=== PATIENT | male | born 1950 | race Caucasian/White ===

== ENCOUNTER 2020-02-11 13:27 | Inpatient (IN) | payer MEDICARE ==
[~2020-02-11] VITALS: Ht 182.9 cm; Wt 109.7 kg
[2020-02-11] VITALS (7 sets, daily range): BP systolic 103–131; BP diastolic 57–89
[~2020-02-11 13:27] MED LIST: ASPI-586 PO; ATOR10TA66 PO; LISI-552 PO; MULT1CAP27 PO; OMG1KC PO
[2020-02-11] MEDS ORDERED: LACTATED RINGERS 1,000 ML IV ONE (14:07)
--- NOTE | 2020-02-11 14:13 | ED Fall/Injury ---
General Chief Complaint: Trauma-Non Activation Stated Complaint: FALL Nursing Triage Note: Pt arrived by EMS (Braulio Coto, CHIP APPLYING MACHINE TENDER and Sae Brown, EMT) with chief complaint of fall and hip/rib pain. EMS stated that patient might have fallen around [id number] and called children who came several hours after. Children arrived and stated that he was going to the emergency room to get checked ouot. EMT informed us that he had hip/rib pain. Pt only complains of injury to ribs, but denies any pain. Pt was alert and oriented for EMS. History of hypertension/high cholesterol. Pt was 96% on room air, bp was 127/68 for EMS. Patients was lifted from the stretcher to the ER bed. Pt's vital signs were taken. Pt was able to say name, , time of day (afternoon), where he was at ([facility]), year (2019), and President ([facility]). Pt said he was only confused on what day it was and stated tuesday (it is tuesday). Pt denies pain, but says he is anxious. Source: patient, EMS Exam Limitations: no limitations History of Present Illness Date Seen by Provider: Feb 11, 2020 Time Seen by Provider: 13:54 Initial Comments Patient presents ER by EMS from his home where he lives alone and with chief complaint that around 9:00 last night he got up to go the bathroom and got his foot tripped up in the shower curtain as he was walking back and fell to the floor landing with the threshold of the shower across his lower abdomen and pelvis. He said he was having some pain and was unable to get up all night. He says is not having any pain now. No nausea fevers sweats chills cough shortness of breath. He does drink about half a pint a day of cheap liquor. He uses Arthur but does not smoke nor use recreational drugs. His family came down this morning at 9:00 in the morning and found him where he laid at least 12 hours. He is incontinent of bowel and bladder and has not had anything to drink since then. He is not on a blood thinner but he does take aspirin and lisinopril . He denies a history of diabetes, heart disease or lung disease. He says his family has been concerned about him since he lives alone for some time. He thinks he may have struck his head but he doesn't have any pain and denies loss of consciousness. Location Injury Occurred: rib Allergies and Home Medications Allergies Coded Allergies: No Known Drug Allergies (Unverified , 11/26/15) Home Medications Atorvastatin Calcium 10 Mg Tablet, 10 MG PO DAILY, (Reported) Lisinopril 20 Mg Tablet, 20 MG PO DAILY, (Reported) Multivitamin 1 Each Capsule, 1 TAB PO DAILY, (Reported) Patient Home Medication List Home Medication List Reviewed: Yes Review of Systems Review of Systems Constitutional: No chills, No diaphoresis, No fever; malaise, weakness Eyes: Denies Blindness, Denies Blurred Vision Ears, Nose, Mouth, Throat: denies ear pain, denies ear discharge Respiratory: No cough, No short of breath Cardiovascular: No edema, No Hx of Intervention, No palpitations, No syncope, No vascular heart diseas Gastrointestinal: see HPI, abdominal pain (across the lower pelvis); No constipation, No nausea, No vomiting Genitourinary: No decreased output, No discharge Musculoskeletal: No back pain, No joint pain Psychiatric/Neurological: Anxiety; Denies Depressed All Other Systems Reviewed Negative Unless Noted: Yes Past Yzkinxj-Qncmnu-Yezihq Hx Patient Social History Alcohol Use: Regular Use Alcohol Beverage of Choice: Whiskey Recreational Drug Use: No Smoking Status: Current Everyday Smoker Type Used: Smokeless Tobacco 2nd Hand Smoke Exposure: Yes Recent Foreign Travel: No Contact w/Someone Who Travel: No Recent Infectious Disease Expo: No Physical Abuse: No Sexual Abuse: No Mistreated: No Fear: No Immunizations Up To Date Date of Pneumonia Vaccine: May 15, 2015 Past Medical History Surgeries: No Respiratory: No Cardiac: Yes High Cholesterol, Hypertension Neurological: No Sexually Transmitted Disease: No HIV/AIDS: No Gastrointestinal: No Musculoskeletal: No Endocrine: No Loss of Vision: Bilateral Hearing Impairment: Denies Cancer: Yes Prostate Psychosocial: Yes (WITH WIFES PASSING) Anxiety Integumentary: No Blood Disorders: No Family Medical History Cataracts 19 FATHER Colon cancer 19 MOTHER Deafness or hearing loss 19 FATHER Gastroenteritis 19 MOTHER Hypercholesterolemia G8 BROTHER sons Hypertension sons sons Myocardial infarction 19 FATHER 19 MOTHER Prostate cancer G8 BROTHER Physical Exam Vital Signs Vital Signs - First Documented 02/11/20 13:30 Temp 36.5 Pulse 121 Resp 16 B/P (MAP) 103/72 (82) Pulse Ox 95 O2 Delivery Room Air Capillary Refill : Less Than 3 Seconds Height, Weight, BMI Height: 6'2.00" Weight: 207lbs. 8.0oz. [id number]; 27.00 BMI Method: General Appearance: WD/WN, mild distress HEENT: PERRL/EOMI, pharynx normal Neck: full range of motion, supple, normal inspection Cardiovascular: normal peripheral pulses, regular rate, rhythm, no edema Respiratory: chest non-tender, lungs clear, normal breath sounds, no respiratory distress, no accessory muscle use Peripheral Pulses: 2+ Radial Pulses (R), 2+ Radial Pulses (L) Gastrointestinal: normal bowel sounds, soft, tenderness (erythematous tender skin lower abdomen) Neurologic/Psychiatric: alert, normal mood/affect, oriented x 3 Skin: other (erythematous, blanchable, tender warm skin over the lower pelvis and bilateral inguinum consistent with possible cellulitis versus skin irritation from urine contact) [place] Coma Score Best Eye Response: (4) Open Spontaneously Best Verbal Response: (5) Oriented Best Motor Response: (6) Obeys Commands [place] Total: 15 Progress/Results/Core Measures Results/Orders Lab Results Laboratory Tests Test 02/11/20 15:20 Range/Units White Blood Count 14.2 H 4.3-11.0 10^3/uL Red Blood Count 4.33 L 4.35-5.85 10^6/uL Hemoglobin 13.8 13.3-17.7 G/DL Hematocrit 39 L 40-54 % Mean Corpuscular Volume 91 80-99 FL Mean Corpuscular Hemoglobin 32 25-34 PG Mean Corpuscular Hemoglobin Concent 35 32-36 G/DL Red Cell Distribution Width 13.7 10.0-14.5 % Platelet Count 267 130-400 10^3/uL Mean Platelet Volume 9.7 7.4-10.4 FL Neutrophils (%) (Auto) 81 H 42-75 % Lymphocytes (%) (Auto) 10 L 12-44 % Monocytes (%) (Auto) 8 0-12 % Eosinophils (%) (Auto) 0 0-10 % Basophils (%) (Auto) 0 0-10 % Neutrophils # (Auto) 11.5 H 1.8-7.8 X 10^3 Lymphocytes # (Auto) 1.4 1.0-4.0 X 10^3 Monocytes # (Auto) 1.2 H 0.0-1.0 X 10^3 Eosinophils # (Auto) 0.0 0.0-0.3 10^3/uL Basophils # (Auto) 0.0 0.0-0.1 10^3/uL Urine Color YELLOW Urine Clarity CLEAR Urine pH 6.0 5-9 Urine Specific [place] 1.025 H 1.016-1.022 Urine Protein 1+ H NEGATIVE Urine Glucose (UA) NEGATIVE NEGATIVE Urine Ketones TRACE H NEGATIVE Urine Nitrite NEGATIVE NEGATIVE Urine Bilirubin NEGATIVE NEGATIVE Urine Urobilinogen 0.2 < = 1.0 MG/DL Urine Leukocyte Esterase NEGATIVE NEGATIVE Urine RBC (Auto) 2+ H NEGATIVE Urine RBC 2-5 H /HPF Urine WBC 0-2 /HPF Urine Squamous Epithelial Cells 0-2 /HPF Urine Crystals NONE /LPF Urine Bacteria TRACE /HPF Urine Casts NONE /LPF Urine Mucus SMALL H /LPF Urine Culture Indicated NO Sodium Level 133 L 135-145 MMOL/L Potassium Level 4.4 3.6-5.0 MMOL/L Chloride Level 94 L 98-107 MMOL/L Carbon Dioxide Level 21 21-32 MMOL/L Anion Gap 18 H 5-14 MMOL/L Blood Urea Nitrogen 31 H 7-18 MG/DL Creatinine 1.37 H 0.60-1.30 MG/DL Estimat Glomerular Filtration Rate 51 BUN/Creatinine Ratio 23 Glucose Level 168 H 70-105 MG/DL Calcium Level 10.0 8.5-10.1 MG/DL Corrected Calcium 9.9 8.5-10.1 MG/DL Total Bilirubin 1.4 H 0.1-1.0 MG/DL Aspartate Amino Transf (AST/SGOT) 44 H 5-34 U/L Alanine Aminotransferase (ALT/SGPT) 39 0-55 U/L Alkaline Phosphatase 67 40-136 U/L C-Reactive Protein 12.08 H <0.50 MG/DL Total Protein 7.8 6.4-8.2 GM/DL Albumin 4.1 3.2-4.5 GM/DL Urine Opiates Screen NEGATIVE NEGATIVE Urine Oxycodone Screen NEGATIVE NEGATIVE Urine Methadone Screen NEGATIVE NEGATIVE Urine Propoxyphene Screen NEGATIVE NEGATIVE Urine Barbiturates Screen NEGATIVE NEGATIVE Ur Tricyclic Antidepressants Screen NEGATIVE NEGATIVE Urine Phencyclidine Screen NEGATIVE NEGATIVE Urine Amphetamines Screen NEGATIVE NEGATIVE Urine Methamphetamines Screen NEGATIVE NEGATIVE Urine Benzodiazepines Screen NEGATIVE NEGATIVE Urine Cocaine Screen NEGATIVE NEGATIVE Urine Cannabinoids Screen NEGATIVE NEGATIVE Serum Alcohol < 10 <10 MG/DL My Orders Orders - COY OVALLE Ct Head/Cervical Spine Wo (02/11/20 14:07) Ed Iv/Invasive Line Start (02/11/20 14:07) Lactated Ringers (Lr 1000 Ml Iv Solution (02/11/20 14:07) Lactated Ringers (Lr 1000 Ml Iv Solution (02/11/20 14:15) Pelvis/Roselyn Hips 2 View (02/11/20 14:07) Cbc With Automated Diff (02/11/20 14:07) Comprehensive Metabolic Panel (02/11/20 14:07) Crp Fs (02/11/20 14:07) Ua Culture If Indicated (02/11/20 14:07) Creatine Kinase (02/11/20 14:07) Alcohol (02/11/20 14:07) Drug Screen Stat (Urine) (02/11/20 14:07) Chest 1 View Ap/Pa Only (02/11/20 14:07) Ankle 3 View Right (02/11/20 15:02) Cefazolin Injection (Ancef Injection) (02/11/20 15:45) Manual Differential (02/11/20 15:20) Folic Acid Tablet (Folic Acid Tablet) (02/11/20 16:00) Lorazepam Injection (Ativan Injection) (02/11/20 16:00) Thiamine Injection (Vitamin B-1 Injectio (02/11/20 16:00) Medications Given in ED Current Medications Medications Dose Ordered Sig/Madai Route Start Time Stop Time Status Last Admin Dose Admin Cefazolin Sodium 1000 mg/Sterile Water 10 ml @ 200 mls/hr ONCE ONCE IV 02/11/20 15:45 02/11/20 15:47 DC 02/11/20 16:55 200 MLS/HR Folic Acid 1 mg ONCE ONCE PO 02/11/20 16:00 02/11/20 16:01 DC 02/11/20 16:56 1 MG Lactated Ringer's 1,000 ml @ 0 mls/hr Q0M ONCE IV 02/11/20 14:07 02/11/20 14:11 DC 02/11/20 15:33 1,000 MLS/HR Lorazepam 0.5 mg ONCE ONCE IVP 6/29/20 16:00 02/11/20 16:01 DC 02/11/20 16:56 0.5 MG Thiamine HCl 100 mg ONCE ONCE IV 02/11/20 16:00 02/11/20 16:01 DC 02/11/20 16:56 100 MG Vital Signs/I&O 02/11/20 13:30 Temp 36.5 Pulse 121 Resp 16 B/P (MAP) 103/72 (82) Pulse Ox 95 O2 Delivery Room Air Blood Pressure Mean: 82 Progress Progress Note #1: Time: 14:19 Progress Note The patient's tachycardic with a heart rate around 100 but afebrile. Suspect the red tender skin and his lower abdomen may be the source of his pain but we'll get an x-ray to rule out fracture. Cellulitis versus skin irritation from his incontinence. Patient does not recall having any irritated skin before but he is notably a poor historian. Plan to get some labs and a CT of the head and C- spine. 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 Progress Note #2: Time: 16:47 Progress Note Patient is feeling more comfortable after half a milligram of Ativan. He is in agreement with staying in the hospital for his cellulitis and physical ability. Ancef has been given. Plan to put him in a stirrup splint. Diagnostic Imaging Diagonstic Imaging: Xray Plain Films/CT/US/NM/MRI: chest Comments [facility]. [place], [place] NAME: JUAN STOLL [facility] REC#: [id number] PT STATUS: REG ER : 1950 PHYSICIAN: COY OVALLE MD ADMIT DATE: 02/11/20/ER FS Draft Date of Exam:02/11/20 CHEST 1 VIEW AP/PA ONLY INDICATION: Fall with pain in chest. TECHNIQUE: Frontal chest obtained at 02:43 p.m. FINDINGS: Heart is mildly enlarged. Mediastinal silhouette appears unremarkable. The lungs are grossly clear. There is no pneumothorax or pleural fluid. There is no overt bony abnormality in the chest. IMPRESSION: No acute process in the chest. Dictated on workstation # [id number] Dict: 02/11/20 1505 Trans: 02/11/20 1510 AS6 [id number] Interpreted by: ETHAN CONCEPCION MD Electronically signed by: Reviewed: Reviewed by Me Diagonstic Imaging: Xray Plain Films/CT/US/NM/MRI: pelvis, hip Comments NAME: JUAN STOLL [facility] REC#: [id number] PT STATUS: REG ER : 1950 PHYSICIAN: COY OVALLE MD ADMIT DATE: 02/11/20/ER FS Signed Date of Exam:02/11/20 PELVIS/ROSELYN HIPS 2 VIEW INDICATION: Right hip pain AP view pelvis and spot views of both hips are obtained There are hypertrophic changes at the margins of the articular surfaces with mild joint narrowing at both hips. There is no fracture or dislocation. IMPRESSION: There are degenerative changes present in both hips. There are no acute abnormalities seen. Dictated by: Dictated on workstation # [id number] Dict: 02/11/20 1451 Trans: 02/11/20 1455 [facility] [id number] Interpreted by: MICHELLE KENNEDY MD Electronically signed by: MICHELLE KENNEDY MD 02/11/20 1455 Reviewed: Reviewed by Nc Diagonstic Imaging: CT Plain Films/CT/US/NM/MRI: c-spine, head Comments NAME: JUAN STOLL [facility] REC#: [id number] PT STATUS: REG ER : 1950 PHYSICIAN: COY OVALLE MD ADMIT DATE: 02/11/20/ER FS Draft Date of Exam:02/11/20 CT HEAD/CERVICAL SPINE WO PROCEDURE: CT head and CT cervical spine without contrast. TECHNIQUE: Multiple contiguous axial images were obtained through the brain and cervical spine without the use of intravenous contrast. Sagittal and coronal reformations through the cervical spine were then performed. Auto Exposure Controls were utilized during the CT exam to meet ALARA standards for radiation dose reduction. INDICATION: Fall. Trauma. COMPARISON: None FINDINGS: CT head: The ventricles and cortical sulci are diffusely prominent, compatible with age-related volume loss. There are confluent areas of abnormal, low attenuation in the periventricular white matter. This is consistent with small vessel ischemic changes; age-indeterminate. There is no prior study available for comparison. Old small lacunar infarct in the right thalamus is also noted. There is no midline shift or mass-effect. No acute intra-axial hemorrhage is seen. There are no abnormal areas of increased or decreased density to suggest acute hemorrhage or edema. No extra-axial masses or collections are present. The bony calvarium is intact. The visualized paranasal sinuses show probable chronic complete opacification of the right maxillary sinus, right frontal sinus, and partial opacification of the anterior right ethmoid air cells. The mastoid air cells are clear. CT cervical spine: Evaluation of static alignment shows preservation of normal lordotic curvature of the cervical spine. There is no significant anteroretrolisthesis. There is no evidence of jumped facets. Vertebral body heights are maintained. There is no acute fracture. No bony fragments are seen within the spinal canal. There are however advanced multilevel degenerative changes of the cervical spine consistent with intervertebral disc height loss with multilevel anterior and posterior disc osteophyte complex formations and multilevel facet arthropathy. Pre and paravertebral soft tissue structures are unremarkable. Note is made of calcified carotid atherosclerosis. Included portions of the lung apices show no additional acute abnormalities. IMPRESSION: 1. No acute intracranial abnormality. No CT evidence of mass, acute infarct or intracranial hemorrhage. 2. Small vessel ischemic changes in the periventricular and subcortical white matter; likely chronic. 3. Old small lacunar infarct of the right thalamus. 4. No acute fracture or dislocation cervical spine. 5. Advanced multilevel degenerative changes of the cervical spine. 6. Other nonemergent findings as described above. Dictated on workstation # [id number] Dict: 02/11/20 1459 Trans: 02/11/20 1506 [facility] [id number] Interpreted by: BAR RUGGIERO MD Electronically signed by: Reviewed: Reviewed by Me Diagonstic Imaging: Xray Plain Films/CT/US/NM/MRI: ankle (right) Comments [facility] [place] [place] NAME: JUAN STOLL [facility] REC#: [id number] PT STATUS: REG ER : 1950 PHYSICIAN: COY OVALLE MD ADMIT DATE: 02/11/20/ER FS Signed Date of Exam:02/11/20 ANKLE 3 VIEW RIGHT INDICATION: Fall with right ankle pain. TIME OF EXAM: 03:24 p.m. TECHNIQUE: Three views of the right ankle were obtained. FINDINGS: There appears to be a fracture involving the distal fibula, nondisplaced. Distal tibia appears to be intact. Ankle mortise is maintained. Talar dome is smooth. IMPRESSION: Nondisplaced distal fibular fracture. Dictated by: Dictated on workstation # [id number] Dict: 02/11/20 1549 Trans: 02/11/20 1558 AS6 [id number] Interpreted by: LUIS DIAZ MD Electronically signed by: LUIS DIAZ MD 02/11/20 1558 Reviewed: Reviewed by Me Departure Communication (Admissions) Time/Spoke to Admitting Phy: 17:00 Dr. Kuo: Accepts to the step down unit for debility. Pending CPK. discussed daily drinker. Ancef for cellulitis. Impression Primary Impression: Cellulitis of groin Additional Impressions: Closed right fibular fracture Qualified Codes: S82.831A - Other fracture of upper and lower end of right fibula, initial encounter for closed fracture Physical debility Fall Qualified Codes: W19.XXXA - Unspecified fall, initial encounter Disposition: ADMITTED INPATIENT Condition: Stable Admissions Decision to Admit Reason: Admit from ER (General) Decision to Admit/Date: Feb 11, 2020 Time/Decision to Admit Time: 16:00 Departure-Patient Inst. Referrals: ANJELICA VASQUEZ MD (PCP/Family) Primary Care Physician COY OVALLE Feb 11, 2020 14:13
[2020-02-11] MEDS ORDERED: LACTATED RINGERS 1,000 ML IV SCH (14:15)
--- NOTE | 2020-02-11 14:53 | Diagnostic Imaging Report ---
INDICATION: Right hip pain AP view pelvis and spot views of both hips are obtained There are hypertrophic changes at the margins of the articular surfaces with mild joint narrowing at both hips. There is no fracture or dislocation. IMPRESSION: There are degenerative changes present in both hips. There are no acute abnormalities seen. Dictated by: Dictated on workstation # [id number]
--- NOTE | 2020-02-11 15:06 | Diagnostic Imaging Report ---
PROCEDURE: CT head and CT cervical spine without contrast. TECHNIQUE: Multiple contiguous axial images were obtained through the brain and cervical spine without the use of intravenous contrast. Sagittal and coronal reformations through the cervical spine were then performed. Auto Exposure Controls were utilized during the CT exam to meet ALARA standards for radiation dose reduction. INDICATION: Fall. Trauma. COMPARISON: None FINDINGS: CT head: The ventricles and cortical sulci are diffusely prominent, compatible with age-related volume loss. There are confluent areas of abnormal, low attenuation in the periventricular white matter. This is consistent with small vessel ischemic changes; age-indeterminate. There is no prior study available for comparison. Old small lacunar infarct in the right thalamus is also noted. There is no midline shift or mass-effect. No acute intra-axial hemorrhage is seen. There are no abnormal areas of increased or decreased density to suggest acute hemorrhage or edema. No extra-axial masses or collections are present. The bony calvarium is intact. The visualized paranasal sinuses show probable chronic complete opacification of the right maxillary sinus, right frontal sinus, and partial opacification of the anterior right ethmoid air cells. The mastoid air cells are clear. CT cervical spine: Evaluation of static alignment shows preservation of normal lordotic curvature of the cervical spine. There is no significant anteroretrolisthesis. There is no evidence of jumped facets. Vertebral body heights are maintained. There is no acute fracture. No bony fragments are seen within the spinal canal. There are however advanced multilevel degenerative changes of the cervical spine consistent with intervertebral disc height loss with multilevel anterior and posterior disc osteophyte complex formations and multilevel facet arthropathy. Pre and paravertebral soft tissue structures are unremarkable. Note is made of calcified carotid atherosclerosis. Included portions of the lung apices show no additional acute abnormalities. IMPRESSION: 1. No acute intracranial abnormality. No CT evidence of mass, acute infarct or intracranial hemorrhage. 2. Small vessel ischemic changes in the periventricular and subcortical white matter; likely chronic. 3. Old small lacunar infarct of the right thalamus. 4. No acute fracture or dislocation cervical spine. 5. Advanced multilevel degenerative changes of the cervical spine. 6. Other nonemergent findings as described above. Dictated by: Dictated on workstation # [id number]
--- NOTE | 2020-02-11 15:10 | Diagnostic Imaging Report ---
INDICATION: Fall with pain in chest. TECHNIQUE: Frontal chest obtained at 02:43 p.m. FINDINGS: Heart is mildly enlarged. Mediastinal silhouette appears unremarkable. The lungs are grossly clear. There is no pneumothorax or pleural fluid. There is no overt bony abnormality in the chest. IMPRESSION: No acute process in the chest. Dictated by: Dictated on workstation # [id number]
[2020-02-11 15:38] LABS: BACTERIA,URINE TRACE /HPF; BILIRUBIN,URINE NEGATIVE (NEGATIVE); CLARITY,URINE CLEAR; COLOR,URINE YELLOW; GLUCOSE, URINE (UA) NEGATIVE (NEGATIVE); KETONES,URINE TRACE (NEGATIVE); LEUKOCYTE ESTERASE ,URINE NEGATIVE (NEGATIVE); NITRITE,URINE NEGATIVE (NEGATIVE); PROTEIN,URINE 1+ (NEGATIVE); SQUAMOUS EPITHELIAL CELL,UR 0-2 /HPF; WBC,URINE 0-2 /HPF
[2020-02-11 15:41] LABS: WHITE BLOOD COUNT 14.2 10^3/uL (4.3-11.0)
[2020-02-11 15:42] LABS: BASOPHILS % (AUTO) 0 % (0-10); EOSINOPHILS % (AUTO) 0 % (0-10); HEMATOCRIT 39 % (40-54); HEMOGLOBIN 13.8 G/DL (13.3-17.7); LYMPHOCYTES # (AUTO) 1.4 X 10^3 (1.0-4.0); LYMPHOCYTES % (AUTO) 10 % (12-44); MEAN CORPUSCULAR HEMOGLOBIN 32 PG (25-34); MEAN CORPUSCULAR HGB CONC 35 G/DL (32-36); MEAN CORPUSCULAR VOLUME 91 FL (80-99); MEAN PLATELET VOLUME 9.7 FL (7.4-10.4); MONOCYTES # (AUTO) 1.2 X 10^3 (0.0-1.0); MONOCYTES % (AUTO) 8 % (0-12); NEUTROPHILS # (AUTO) 11.5 X 10^3 (1.8-7.8); NEUTROPHILS % (AUTO) 81 % (42-75); PLATELET COUNT 267 10^3/uL (130-400); RED CELL DISTRIBUTION WIDTH 13.7 % (10.0-14.5)
[2020-02-11 15:45] LABS: AMPHETAMINE SCREEN, URINE NEGATIVE (NEGATIVE); BARBITURATE SCREEN URINE NEGATIVE (NEGATIVE); BENZODIAZEPINES SCREEN URINE NEGATIVE (NEGATIVE); CANNABINOID SCREEN, URINE NEGATIVE (NEGATIVE); COCAINE SCREEN URINE NEGATIVE (NEGATIVE); METHADONE STAT NEGATIVE (NEGATIVE); METHAMPHETAMINE SCREEN URINE S NEGATIVE (NEGATIVE); OPIATE SCREEN URINE NEGATIVE (NEGATIVE); OXYCODONE STAT NEGATIVE (NEGATIVE); PROPOXYPHENE STAT NEGATIVE (NEGATIVE); TRICYCLIC ANTIDEPRESSANTS SCRE NEGATIVE (NEGATIVE)
[2020-02-11] MEDS ORDERED: ceFAZolin INJECTION 1,000 MG in WATER (STERILE) FOR INJECTION 10 ML IV ONE (15:45)
[2020-02-11 15:47] LABS: ALANINE AMINOTRANSFERASE 39 U/L (0-55); ALBUMIN 4.1 GM/DL (3.2-4.5); ALKALINE PHOSPHATASE 67 U/L (40-136); BILIRUBIN,TOTAL 1.4 MG/DL (0.1-1.0); BUN/CREATININE RATIO 23; CARBON DIOXIDE 21 MMOL/L (21-32); CHLORIDE 94 MMOL/L (98-107); CREATININE SERUM 1.37 MG/DL (0.60-1.30); GFR ESTIMATED 51; GLUCOSE 168 MG/DL (70-105); POTASSIUM 4.4 MMOL/L (3.6-5.0); SODIUM 133 MMOL/L (135-145); TOTAL PROTEIN 7.8 GM/DL (6.4-8.2)
--- NOTE | 2020-02-11 15:53 | Diagnostic Imaging Report ---
INDICATION: Fall with right ankle pain. TIME OF EXAM: 03:24 p.m. TECHNIQUE: Three views of the right ankle were obtained. FINDINGS: There appears to be a fracture involving the distal fibula, nondisplaced. Distal tibia appears to be intact. Ankle mortise is maintained. Talar dome is smooth. IMPRESSION: Nondisplaced distal fibular fracture. Dictated by: Dictated on workstation # [id number]
[2020-02-11] MEDS ORDERED: LORazepam INJ 2 MG/ML (ATIVAN) VIAL IVP ONE (16:00)
[2020-02-11] MEDS ORDERED: FOLIC ACID 1 MG TAB PO ONE (16:00)
[2020-02-11] MEDS ORDERED: THIAMINE 100 MG/ML 2 ML (VITAMIN B-1) VIAL IV ONE (16:00)
[2020-02-11 17:23] LABS: BAND NEUTROPHILS 1 %; BASOPHILS % (MANUAL) 0 %; EOSINOPHILS % (MANUAL) 0 %; LYMPHOCYTES % (MANUAL) 9 %; MONOCYTES % (MANUAL) 8 %; NEUTROPHILS % (MANUAL) 82 %
[2020-02-11 17:24] LABS: RBC MORPH NORMAL
[2020-02-11] MEDS ORDERED: 1/2 NS IV SOLUTION 1,000 ML IV PRN (19:39)
[2020-02-11] MEDS ORDERED: LORazepam INJ 2 MG/ML (ATIVAN) VIAL IM/IV PRN (19:45)
[2020-02-11] MEDS ORDERED: LORazepam INJ 2 MG/ML (ATIVAN) VIAL IV PRN (19:45)
[2020-02-11] MEDS ORDERED: CALCIUM CARBONATE 500 MG (TUMS) TAB.CHEW PO PRN (19:45)
[2020-02-11] MEDS ORDERED: MELATONIN 3 MG TABLET PO PRN (19:45)
[2020-02-11] MEDS ORDERED: ACETAMINOPHEN 500 MG TAB (TYLENOL) PO PRN (19:45)
[2020-02-11] MEDS ORDERED: ONDANSETRON 4 MG (ZOFRAN) ORAL DISSOLVE TAB SL PRN (19:45)
[2020-02-11] MEDS ORDERED: ONDANSETRON 4 MG/2 ML (SDV) Z0FRAN IV PRN (19:45)
[2020-02-11] MEDS ORDERED: LOPERAMIDE 2 MG (IMODIUM) TABLET PO PRN (19:45)
[2020-02-11] MEDS ORDERED: HYDROcodone/APAP 5 MG/325 MG (LORTAB) TAB PO PRN (19:45)
[2020-02-11] MEDS ORDERED: DOCUSATE SODIUM 100 MG (COLACE) CAP PO PRN (19:45)
[2020-02-11] MEDS ORDERED: D5 1/2 NS 1000 ML IV SOLUTION 1,000 ML IV PRN (19:45)
[2020-02-11] MEDS ORDERED: LORazepam 1 MG (ATIVAN) TAB PO PRN (19:45)
[2020-02-11] MEDS ORDERED: diphenhydrAMINE 25 MG TAB (BENADRYL) PO PRN (19:45)
[2020-02-11] MEDS ORDERED: ANTACID SUSP 30 ML UDC (MYLANTA) PO PRN (19:45)
[2020-02-11] MEDS ORDERED: SENNA W/DOCUSATE (SENOKOT S) TABLET PO PRN (19:45)
[2020-02-11] MEDS ORDERED: ENOXAPARIN 40 MG/0.4 ML (LOVENOX) SYR SC SCH (20:00)
[2020-02-11 20:07] LABS: CREATINE KINASE 1537 U/L (30-200)
--- OUTSIDE RECORDS SUMMARY | 2020-02-11 20:42 | XMS REPORT ---
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 [email or web address] [facility] [place] [employer] [facility] [email or web address] Address [address] [place] [address] Care Team Providers Care Installer Technician Name Role Phone JACKIE BAIRD MD Unavailable Unavailable JACKIE BAIRD MD Unavailable Unavailable ANJELICA VASQUEZ Unavailable Unavailable Unavailable Unavailable Unavailable Unavailable Unavailable Unavailable Unavailable Unavailable Allergies No Information Medications No Information Problems Problem Normalized Date Last Normalized Normalized Provider Fa cility Classification Problem(s) Recorded Problem Problem Sta tus Duration Immunizations Encounter for Episodic Active JACKIE BAIRD [facility] Via and screening screening for , [facility] for infectious other Hospital - disease (3 bacterial [place] sources.) diseases ([id number]) Cancer of Malignant Chronic Active JACKIE BAIRD [facility] Via prostate (6 neoplasm of , [facility] sources.) prostate [facility] (39874) Procedures Procedure Normalized Procedure Procedure Result Performer Facility Date 12-03-2015 EXCISION OF PELVIS no information no name [facility] LYMPHATIC, PERC [facility] ([id number]) 12-03-2015 RESECTION OF PROSTATE, no information no name [facility] PERCUTANEOUS [facility] (75495) 12-03-2015 ROBOTIC ASSISTED no information no name [facility] Vi a [facility] PROCEDURE OF TRUNK, [facility] PER ([id number]) Immunizations Normalized Immunization Date Notes Care Provider Facili ty Immunization pneumococcal 05-26-2016 no information no name [facility] polysaccharide [facility] Results Test Name Value Interpretation Reference Range Date Time Fa cility (Normalized) (Normalized) (Medline Reference) not yet categorized on null BLO 10/2020~clear~ye (no code) [facility] llow~no~100 [facility] [place] mg/dL~neg~neg~> [place] = 1.030~neg (43654) Exp date neg~neg~25268S~0 (no code) [facility] (95242) Lot # [id number] (no code) [facility] (54511) URO 0.2 (no code) [facility] (91457) laboratory on null pH (Bld) 5.5 [pH] (no code) 7.38 - 7.42 [pH] [facility] (49459) Protein (U) Negative (no code) 0 - 20 mg/dL [facility] alth [Mass/Vol] [facility] (21012) other on 2018-11-28 Albumin/Globulin 1.2 (N) [facility] [Mass ratio] [facility] (04520) Cholesterol in 179 (H) Count includes the [facility] LDL [Mass/Vol] [facility] (61060) Cholesterol non 209 (H) [facility] HDL [Mass/Vol] [facility] (64201) Cholesterol.tota 5.1 (H) [facility] l/Cholesterol in [facility] HDL [Mass ratio] [facility] (06547) Erythrocyte 12.2 % (N) 11.6 - 14.6 % Formerly [facility], 1928[facility]1983 ealth distribution [facility] width (RBC) [facility] [Ratio] (24133) GFR/1.73 sq 76 (N) 90 - 120 [facility] M.predicted MDRD mL/min/{1.73_m2} mL/min/{1.73_m2} [facility] (S/P/Bld) [Vol [facility] rate/Area] (70680) Globulin (S) 3.5 (N) Count includes the [facility] [Mass/Vol] [facility] (68282) Lymphocytes 3367 (N) Count includes the [facility] (Bld) [#/Vol] [facility] (78548) MCHC (RBC) 34.9 g/dL (N) 32 - 36 g/dL [facility] [Mass/Vol] [facility] (30047) Platelet mean 10.7 fL (N) 7.2 - 11.7 fL [facility] volume (Bld) [facility] [Entitic vol] [facility] (29103) Service comment no information (no code) [facility] (Unsp spec) [facility] [Interp] [facility] (94443) metabolic panel on 2018-11-28 Albumin 4.3 g/dL (N) 3.4 - 5.4 g/dL [facility] [Mass/Vol] [facility] (41838) ALP [Catalytic 65 U/L (N) 44 - 147 U/L [facility] activity/Vol] [facility] (14084) ALT [Catalytic 26 U/L (N) 4 - 40 U/L [facility] ealt activity/Vol] [facility] (02635) AST [Catalytic 24 U/L (N) 10 - 34 U/L [facility] activity/Vol] [facility] (29257) Bilirubin 1.0 mg/dL (N) 0.1 - 1.2 mg/dL [facility] [Mass/Vol] [facility] (10947) Calcium 10.1 mg/dL (N) 8.5 - 10.2 mg/dL [facility] [Mass/Vol] [facility] (72532) Chloride 96 mmol/L (L) 95 - 106 mmol/L [facility] [Moles/Vol] [facility] (18454) CO2 [Moles/Vol] 25 mmol/L (N) 23 - 29 mmol/L [facility] (34036) Creatinine 1.00 mg/dL (N) [facility] h [Mass/Vol] [facility] (27781) GFR/1.73 sq M 88 (N) 90 - 120 [facility] predicted among mL/min/{1.73_m2} mL/min/{1.73_m2} [facility] [place] MDRD [facility] (S/P/Bld) [Vol (68327) rate/Area] Glucose 151 mg/dL (H) 60 - 125 mg/dL [facility] [Mass/Vol] [facility] (89540) Potassium 4.0 mmol/L (N) 3.7 - 5.2 mmol/L [facility] [Moles/Vol] [facility] (72754) Protein 7.8 g/dL (N) 6.4 - 8.3 g/dL [facility] [Mass/Vol] [facility] (14118) Sodium 134 mmol/L (L) 135 - 145 mmol/L [facility] [Moles/Vol] [facility] (07802) Urea nitrogen 19 mg/dL (N) 7 - 20 mg/dL [facility] [Mass/Vol] [facility] (23348) Urea NOT APPLICABLE (no code) [facility] nitrogen/Creatin [facility] [Mass ratio] [facility] (82790) hematology on 2018-11-28 Basophils (Bld) 0.102 10*3/uL (N) 0 - 0.3 10*3/uL [facility] [#/Vol] [facility] (73352) Basophils/100 0.9 % (N) 0.5 - 1 % [facility] WBC (Bld) [facility] (25550) Eosinophils 0 10*3/uL (L) 0.05 - 0.5 [facility] th (Bld) [#/Vol] 10*3/uL [facility] (65948) Eosinophils/100 0 % (N) 1 - 4 % [facility] WBC (Bld) [facility] (23512) Hematocrit (Bld) 41.6 % (N) 36.1 - 50.3 % [facility] [Volume [facility]] [facility] (50752) Hemoglobin (Bld) 14.5 g/dL (N) 12.1 - 17.2 g/dL [facility] [Mass/Vol] [facility] (20649) Lymphocytes/100 29.8 % (N) 20 - 40 % [facility] WBC (Bld) [facility] (69602) MCH (RBC) 33.1 pg (H) 27 - 31 pg [facility] [Entitic mass] [facility] (94157) MCV (RBC) 95.0 fL (N) 80 - 100 fL [facility] lth [Entitic vol] [facility] (00399) Monocytes (Bld) 0.655 10*3/uL (N) 0.3 - 0.9 [facility] [#/Vol] 10*3/uL [facility] (13312) Monocytes/100 5.8 % (N) 2 - 8 % [facility] alth WBC (Bld) [facility] (06149) Neutrophils 7.176 10*3/uL (N) 1.7 - 7 10*3/uL [facility] Health (Bld) [#/Vol] [facility] (69269) Neutrophils/100 63.5 % (N) 40 - 60 % [facility] WBC (Bld) [facility] (65786) Platelets (Bld) 301 10*3/uL (N) 150 - 450 [facility] [#/Vol] 10*3/uL [facility] (61915) Platelets LM Ql ADEQUATE (N) [facility] th (Bld) [facility] (67921) RBC (Bld) 4.38 10*6/uL (N) 4.2 - 6.1 [facility] [#/Vol] 10*6/uL [facility] (94749) WBC (Bld) 11.3 10*3/uL (H) 3.5 - 10.5 [facility] l[facility] [#/Vol] 10*3/uL [facility] (33905) cardiac on 2018-11-28 Cholesterol 260 mg/dL (H) 180 - 200 mg/dL [facility] [Mass/Vol] [facility] (45749) Cholesterol in 51 mg/dL (N) [facility] h HDL [Mass/Vol] [facility] (97378) Triglyceride 158 mg/dL (H) 0 - 150 mg/dL [facility] [Mass/Vol] [facility] (16259) Vital Signs No Information Interventions No Information Plan of Treatment No Information Goals No Information Social History No Information Functional Status No Information Mental Status No Information Encounters Encounter Normalized Encounter Encounter Diagnosis Care Provi darrell Organization Date Type 12-03-2015 Evaluation and no information JACKIE BAIRD MD [facility] Via [facility] - management of (no phone) [facility] 12-04-2015 inpatient (no phone) 10-26-2019 Patient encounter no information (no phone) [facility] procedure Center [facility] (no phone) 10-22-2019 Patient encounter no information ANJELICA VASQUEZ ( no [facility] procedure phone) (no phone) [facility] (no phone) 11-28-2018 Patient encounter no information no name no or ganization name procedure 11-28-2018 Patient encounter no information no name no or ganization name procedure 11-26-2015 Patient encounter no information JACKIE Fay [facility] Via [facility] - procedure (no phone) [facility] 11-26-2015 (no phone) 10-22-2019 no information Encounter for no name no organi zation name preprocedural cardiovascular examination Medical Equipment No Information Payers No Information Additional Source Comments This clinical document has been generated using Sviral software that has been certified by the Office of the National Coordinator for Health Information Technology (ONC 15.99.04.3023.Diam.31.00.0.574550) and the National Committee for Suction Operator (NCQA, as an eMeasure certified technology). FOR RECORDS PERTAINING TO PATIENTS WHO ARE OR HAVE BEEN ENROLLED IN A CHEMICAL D EPENDENCY/SUBSTANCE ABUSE PROGRAM, SOME INFORMATION MAY BE OMITTED. This clinica l summary was aggregated from multiple sources. Caution should be exercised in using it in the provision of clinical care. This summary normalizes information from multiple sources, and as a consequence, information in this document may ma terially change the coding, format and clinical context of patient data. In karen tion, data may be omitted in some cases. CLINICAL DECISIONS SHOULD BE BASED ON T HE PRIMARY CLINICAL RECORDS. [employer] provides no warranty or guara ntee of the accuracy or completeness of information in this document.The followi ng information is based on time limited clinical information
--- OUTSIDE RECORDS SUMMARY | 2020-02-11 20:42 | XMS REPORT | Continuity of Care Document ---
Author Organization Unknown Address Unknown Phone Unavailable Allergies Active Description Code Type Severity Reaction Onset Reported/Identified Relationship to Patient Clinical Status Yes No Known Drug Allergies [id number] Drug Allergy Unknown N/A 11/26/2015 Medications There is no data. Problems Date Dx Coded Attending Type Code Diagnosis Diagnosed By 11/26/2015 JACKIE BAIRD MD Ot C6 1 11/26/2015 JACKIE BAIRD MD Ot Z01.810 11/26/2015 JACKIE BAIRD MD Ot Z11.2 11/26/2015 JACKIE BAIRD MD Ot C6 1 MALIGNANT NEOPLASM OF PROSTATE 11/26/2015 JACKIE BAIRD MD Ot Z01.810 ENCOUNTER FOR PREPROCEDURAL CARDIOVASCUL 11/26/2015 JACKIE BAIRD MD Ot Z11.2 ENCOUNTER FOR SCREENING FOR OTHER BACTER 11/27/2015 JACKIE BAIRD MD Ot C6 1 11/27/2015 JACKIE BAIRD MD Ot Z01.810 11/27/2015 JACKIE BAIRD MD Ot Z11.2 12/04/2015 JACKIE BAIRD MD Ot C6 1 MALIGNANT NEOPLASM OF PROSTATE Procedures Code Description Performed By Per formed On [id number] EX CISION OF PELVIS LYMPHATIC, PERC ENDO 12/03/2015 [id number] RE SECTION OF PROSTATE, PERCUTANEOUS ENDO 12/03/2015 [id number] RO BOTIC ASSISTED PROCEDURE OF TRUNK, PER 12/03/2015 Results Test Result Range CBC w/MANUAL DIFF - 11/28/18 08:26 WHITE BLOOD CELL COUNT 11.3 Thousand/uL 3.8-10.8 RED BLOOD CELL COUNT 4.38 Million/uL 4.2 0-5.80 HEMOGLOBIN 14.5 g/dL 13.2-17.1 HEMATOCRIT 41.6 % 38.5-50.0 MCV 95.0 fL 80.0-100.0 MCH 33.1 pg 27.0-33.0 MCHC 34.9 g/dL 32.0-36.0 RDW 12.2 % 11.0-15.0 PLATELET COUNT 301 Thousand/uL 140-400 MPV 10.7 fL 7.5-12.5 ABSOLUTE NEUTROPHILS 7176 cells/uL 1500- 7800 ABSOLUTE MONOCYTES 655 cells/uL 200-950 ABSOLUTE EOSINOPHILS 0 cells/uL 15-500 ABSOLUTE BASOPHILS 102 cells/uL 0-200 NEUTROPHILS 63.5 % NRG LYMPHOCYTES 29.8 % NRG MONOCYTES 5.8 % NRG EOSINOPHILS 0 % NRG BASOPHILS 0.9 % NRG ABSOLUTE LYMPHOCYTES 3367 cells/uL 850-3 900 PLATELET ESTIMATION ADEQUATE ADEQUATE COMMENT(S) NRG Encounters ACCT No. Visit Date/Time Discharge Status Pt. Type Provider Facility Loc./Unit Complaint [id number] 10/22/2019 08:15:00 10/22/2019 23:59: 59 CLS Outpatient ANJELICA VASQUEZ [facility] [id number] 11/28/2018 13:15:00 Document Registration [id number] 10/26/2019 09:45:00 020 23:59:59 CLS Preadmit ANJELICA VASQUEZ MD [facility] RAD FS DEMENTIA WO BEHAVIORAL [id number] 12/03/2015 05:46:00 016 15:30:00 DIS Inpatient JACKIE BAIRD MD [facility] 4TH PROSTATE CANCER [id number] 11/26/2015 12:14:00 016 13:46:00 DIS Outpatient JACKIE BAIRD MD [facility] PREOP PROSTATE CANCER [id number] 02/11/2020 17:00:[address] Inpatient KAVON DRIVER DO Via [facility] CSD CELLULITUS,PHYSICAL DEBILITY ,FIB FX
[2020-02-11] MEDS: MAGNESIUM OXIDE (MAG-OX)400 MG TAB PO SCH (21:03)
[2020-02-11] MEDS: NS IV 1000 ML 1,000 ML IV SCH (21:04)
[2020-02-11] MEDS: SENNA W/DOCUSATE (SENOKOT S) TABLET PO SCH (21:04)
[2020-02-11] MEDS: polyethylene glycoL POWDER 17 GM (MIRALAX) PACK PO SCH (21:04)
[2020-02-12] MEDS: ceFAZolin INJECTION 1,000 MG in WATER (STERILE) FOR INJECTION 10 ML IV SCH ×2 (01:38→08:35)
[2020-02-12 03:58] LABS: BASOPHILS % (AUTO) 0 % (0-10); EOSINOPHILS # (AUTO) 0.2 10^3/uL (0.0-0.3); EOSINOPHILS % (AUTO) 2 % (0-10); HEMATOCRIT 35 % (40-54); LYMPHOCYTES # (AUTO) 2.5 X 10^3 (1.0-4.0); LYMPHOCYTES % (AUTO) 25 % (12-44); MEAN CORPUSCULAR HEMOGLOBIN 32 PG (25-34); MEAN CORPUSCULAR HGB CONC 35 G/DL (32-36); MEAN CORPUSCULAR VOLUME 93 FL (80-99); MEAN PLATELET VOLUME 9.5 FL (7.4-10.4); MONOCYTES % (AUTO) 10 % (0-12); NEUTROPHILS # (AUTO) 6.6 X 10^3 (1.8-7.8); NEUTROPHILS % (AUTO) 64 % (42-75); PLATELET COUNT 215 10^3/uL (130-400); RED CELL DISTRIBUTION WIDTH 14.2 % (10.0-14.5); WHITE BLOOD COUNT 10.3 10^3/uL (4.3-11.0)
[2020-02-12 04:00] VITALS: BP 118/78
[2020-02-12 04:14] LABS: ALBUMIN 3.4 GM/DL (3.2-4.5); CHLORIDE 103 MMOL/L (98-107); POTASSIUM 3.5 MMOL/L (3.6-5.0); SODIUM 134 MMOL/L (135-145)
[2020-02-12 04:15] LABS: CALCIUM 8.8 MG/DL (8.5-10.1)
[2020-02-12 04:16] LABS: GLUCOSE 103 MG/DL (70-105); TOTAL PROTEIN 6.5 GM/DL (6.4-8.2)
[2020-02-12 04:17] LABS: CARBON DIOXIDE 19 MMOL/L (21-32)
[2020-02-12 04:20] LABS: ALKALINE PHOSPHATASE 51 U/L (40-136); CREATININE SERUM 1.13 MG/DL (0.60-1.30); GFR ESTIMATED > 60
[2020-02-12 04:21] LABS: BUN/CREATININE RATIO 21
[2020-02-12 04:23] LABS: ALANINE AMINOTRANSFERASE 32 U/L (0-55); CREATINE KINASE 1033 U/L (30-200)
[2020-02-12 04:36] LABS: INR 1.2 (0.8-1.4); PROTHROMBIN TIME PATIENT 15.2 SEC (12.2-14.7)
[2020-02-12] MEDS: NS IV 1000 ML 1,000 ML IV SCH ×2 (05:08→12:18)
[2020-02-12] MEDS ORDERED: MULTIVIT W/MINERALS TAB (THERAGRAN M) PO SCH (07:00)
[2020-02-12] MEDS ORDERED: THIAMINE 100 MG (VITAMIN B-1) TAB PO SCH (07:00)
[2020-02-12 08:00] VITALS: BP 118/77
[2020-02-12] MEDS: MAGNESIUM OXIDE (MAG-OX)400 MG TAB PO SCH (08:13)
[2020-02-12] MEDS: SENNA W/DOCUSATE (SENOKOT S) TABLET PO SCH (08:17)
[2020-02-12] MEDS: polyethylene glycoL POWDER 17 GM (MIRALAX) PACK PO SCH (08:17)
[2020-02-12] MEDS ORDERED: FOLIC ACID 1 MG TAB PO SCH (09:00)
--- NOTE | 2020-02-12 09:56 | Physical Therapy Evaluation ---
PT Evaluation-General Medical Diagnosis Admission Date Feb 11, 2020 at 17:00 Medical Diagnosis: cellulitis/debility Onset Date: Feb 11, 2020 Therapy Diagnosis Therapy Diagnosis: generalized weakness/debility Height/Weight Height (Feet): 6 Height (Inches): 2.00 Weight (Pounds): 207 Weight (Ounces): 8.0 Precautions Precautions/Isolations: Fall Prevention, Standard Precautions Weight Bear Status Right Lower Extremity: Right Weight Bearing/Tolerated Left Lower Extremity: Left Weight Bearing/Tolerated Referral Physician: Ayaan Reason for Referral: Evaluation/Treatment Medical History Pertinent Medical History: Alcoholism, HTN, Prostate CA, Smoking (smokeless tobacco) Current History EMS secondary to fall at home (tripped and fell over the shower curtain) was on floor ~12 hours Reviewed History: Yes Social History Home: Single Level Current Living Status: Alone Prior Prior Level of Function SCALE: Activities may be completed with or without assistive devices. 4-Wapitwhhhf-usswrfz completes the activity by him/herself with no assistance from a helper. 5-Set-up or Clean-up Assistance-helper sets up or cleans up; patient completes activity. [place] assists only prior to or following the activity. 4-Supervision or Touching Assistance-helper provides verbal cues and/or touching/steadying and/or contact guard assistance as patient completes activity. Assistance may be provided throughout the activity or intermittently. 3-Partial/Moderate Assistance-helper does LESS THAN HALF the effort. [place] lifts, holds or supports trunk or limbs, but provides less than half the effort. 2-Substantial/Maximal Assistance-helper does MORE THAN HALF the effort. [place] lifts or holds trunk or limbs and provides more than half the effort. 7-Zlxamiddu-hjypek does ALL the effort. Patient does none of the effort to complete the activity. Or, the assistance of 2 or more helpers is required for the patient to complete the activity. If activity was not attempted, code reason: 7-Patient Refused. 9-Not Applicable-not attempted and the patient did not perform the activity before the current illness, exacerbation or injury. 10-Not Attempted due to Environmental Limitations-(lack of equipment, weather restraints, etc.). 88-Not Attempted due to Medical Conditions or Safety Concerns. Bed Mobility: 6 Transfers (B,C,W/C): 6 Gait: 6 Indoor Mobility (Ambulation): Independent Prior Devices Use: Walker PT Evaluation-Current Subjective Patient reluctantly agrees to PT. Patient is adamant to not participate with PT and is demanding to be left alone. RN had to be called to reinforce need to perform OOB activity. Patient yells with any movement and becomes highly agitated. Pain Numeric Pain Scale: 10-Worst Possible Pain Location: Left Location Body Site: Calf Pain Description: Acute Comment: FLACC/yelling Objective Patient Orientation: Person, Time, Situation Attachments: IV ROM/Strength ROM Lower Extremities bilateral LE WFL Strength Lower Extremities 3+/5 grossly bilateral LE Integumentary/Posture Integumentary refer to nursing notes Bowel Incontinence: No Bladder Incontinence: Yes Posture trunk flexed posture in stand to FWW Neuromuscular (Tone, Coordination, Reflexes) grossly intact Sensory Vision: Functional Hearing: Functional Sensation Right Lower Extremit: Intact Sensation Left Lower Extremity: Intact Transfers Roll Left to Right (QC): 5 Lying to Sitting/Side of Bed(Q: 5 Sit to Stand (QC): 3 Chair/Bqk-fx-Fwgsj Xfer(QC): 3 Toilet Transfer (QC): 3 patient sat EOB x 20 min refusing to perform sit to stand and to ambulate to toilet. Patient becomes highly agitated. Once up, patient is able to ambulate, slowly with FWW to toilet for BM. Gait Does the Patient Walk?: Yes Mode of Locomotion: Walk Anticipated Mode of Locomotion: Walk Walk 10 feet (QC): 3 Distance: 15' x 2 Gait Assistive Device: FWW Comments/Gait Description WBOS/yells with all movement Balance Sitting Static: Normal Sitting Dynamic: Normal Standing Static: Fair Standing Dynamic: Fair Assessment/Needs 69 y.o. male, is very behavioral during therapy session and requires much time to complete minimal functional task. PT will address functional strength and mobility as allowed and tolerated by patient. Rehab Potential: Fair PT Green T[employer] Inspector Goals Green T[employer] Inspector Goals PT Nursing Home Goals Time Frame: Feb 23, 2020 Roll Left & Right (QC): 5 Sit to Lying (QC): 5 Lying-Sitting on Side/Bed(QC): 5 Sit to Stand (QC): 5 Chair/Erw-td-Diqyp Xfer(QC): 5 Toilet Transfer (QC): 5 Does the Patient Walk: Yes Walk 10 feet (QC): 5 Walk 50ft with 2 Turns (QC): 5 PT Plan Problem List Problem List: Activity Tolerance, Functional Strength, Safety, Balance, Gait, Transfer Treatment/Plan Treatment Plan: Continue Plan of Care Treatment Plan: Bed Mobility, Education, Functional Activity Tiff, Functional Strength, Gait, Safety, Therapeutic Exercise, Transfers Treatment Duration: Feb 23, 2020 Frequency: 6 times per week Estimated Hrs Per Day: .25 hour per day Patient and/or Family Agrees t: Yes Discharge Recommendations Therapy Discharge Recommendati: Other, See Comments (long-term facility) Time/GCodes Time In: 840 Time Out: 920 Total Billed Treatment Time: 40 Total Billed Treatment 1 visit EVModC 15 min FA x 2 25 min ENRIQUE CASTILLO PT Feb 12, 2020 09:56
--- NOTE | 2020-02-12 10:15 | NUR ---
IRF Evaluation Determination: Accepted Chart review complete and findings discussed with Dr. Kuo. Patient agreeable to admission. Anticipate admission, 02/11. Thank you for this referral.
--- NOTE | 2020-02-12 10:17 | History & Physical ---
History of Present Illness HPI/Chief Complaint CC: Fall with right distal fibula fracture HPI: This is a 69yoWM clinic patient of Dr Luna with h/o etohism, smoking, HTN HLP and dementia who presents to the ER after found down for 12 hours after a fall at home. Right distal fibula fracture revealed along with groin cellulitis so placed on IVF and pain control and Ancef and now is improved. Source: patient Exam Limitations: no limitations Date Seen 02/12/20 Time Seen by a Provider: 10:00 Attending Physician Darlyn Kuo DO PCP Aidan Luna MD Referring Physician Date of Admission Feb 11, 2020 at 17:00 Home Medications & Allergies Home Medications Reviewed patient Home Medication Reconciliation performed by pharmacy medication reconciliations technician trainee and/or nursing. Patients Allergies have been reviewed. Allergies Allergies Coded Allergies No Known Drug Allergies (Unverified11/26/15) Past Buybdmb-Trbnfp-Cwdquj Hx Past Med/Social Hx: Reviewed Nursing Past Med/Soc Hx, Reviewed and Corrections made Patient Social History Marrital Status: single Employed/Student: retired Alcohol Use: Regular Use Alcohol Beverage of Choice: Whiskey Recreational Drug Use: No Smoking Status: Current Everyday Smoker Type Used: Smokeless Tobacco 2nd Hand Smoke Exposure: Yes Recent Foreign Travel: No Contact w/other who traveled: No Recent Infectious Disease Expo: No Immunizations Up To Date Date of Pneumonia Vaccine: May 15, 2019 Past Medical History Cardiac: High Cholesterol, Hypertension Sexually Transmitted Disease: No HIV/AIDS: No Loss of Vision: Bilateral Hearing Impairment: Denies Cancer: Prostate Psychosocial: Anxiety History of Blood Disorders: No Family History Cataracts 19 FATHER Colon cancer 19 MOTHER Deafness or hearing loss 19 FATHER Gastroenteritis 19 MOTHER Hypercholesterolemia G8 BROTHER sons Hypertension sons sons Myocardial infarction 19 FATHER 19 MOTHER Prostate cancer G8 BROTHER Review of Systems Constitutional: see HPI Respiratory: no symptoms reported Cardiovascular: no symptoms reported Musculoskeletal: muscle pain, other (right leg pain) Physical Exam Physical Exam Vital Signs Vital Signs - First Documented 02/11/20 02/11/20 13:30 21:11 Temp 36.5 Pulse 121 Resp 16 B/P (MAP) 103/72 (82) Pulse Ox 95 O2 Delivery Room Air FiO2 21 Capillary Refill : NONELess Than 3 Seconds Height, Weight, BMI Height: 6'2.00" Weight: 207lbs. 8.0oz. 94.982609cu; 27.17 BMI Method: General Appearance: No Apparent Distress, WD/WN Eyes: Bilateral Eye Normal Inspection, Bilateral Eye PERRL HEENT: PERRL/EOMI, TMs Normal, Normal ENT Inspection, Pharynx Normal Neck: Full Range of Motion, Normal Inspection, Non Tender, Supple, Carotid Bruit Respiratory: Chest Non Tender, Lungs Clear, Normal Breath Sounds, No Accessory Muscle Use, No Respiratory Distress Cardiovascular: Regular Rate, Rhythm, No Edema, No Gallop, No JVD, No Murmur, Normal Peripheral Pulses Gastrointestinal: Normal Bowel Sounds, No Organomegaly, No Pulsatile Mass, Non Tender, Soft Back: Normal Inspection, No CVA Tenderness, No Vertebral Tenderness Extremity: Normal Capillary Refill, Normal Inspection, Normal Range of Motion, Non Tender, No Calf Tenderness, No Pedal Edema, Other (right leg pain with movement) Neurologic/Psychiatric: Alert, Oriented x3, No Motor/Sensory Deficits, Normal Mood/Affect Skin: Normal Color, Warm/Dry Lymphatic: No Adenopathy Results Results/Procedures Labs Laboratory Tests 02/11/20 15:20 02/12/20 03:45 Patient resulted labs reviewed. Assessment/Plan Admission Diagnosis Assessment: Fall Right distal fibula fracture HTN HLP Smoker ETOH user Plan: Pain control Dr. Ramirez consult [place] [facility] IRF Admission Status: Observation Diagnosis/Problems Diagnosis/Problems (1) Closed right fibular fracture Status: Acute Qualifiers: Encounter type: initial encounter Fibula location: distal Fracture morphology: unspecified fracture morphology Qualified Codes: S82.831A - Other fracture of upper and lower end of right fibula, initial encounter for closed fracture (2) Cellulitis of groin Status: Acute (3) Fall Status: Acute Qualifiers: Encounter type: initial encounter Qualified Codes: W19.XXXA - Unspecified fall, initial encounter Clinical Quality Measures DVT/VTE Risk/Contraindication: Risk Factor Score Per Nursin RFS Level Per Nursing on Admit: 4+=Very High DARLYN KUO DO Feb 12, 2020 10:17
--- NOTE | 2020-02-12 10:28 | NUR ---
Pt is Roman Catholic and declines sacraments but welcomed prayer.
--- NOTE | 2020-02-12 11:23 | NUR ---
CM/SS social service consult. Social service received consult on patient for out of home placement. The patient is transferring down to 2nd floor with Inpatient Rehab. The CM/SS with IRF will take over case at this time.
[2020-02-12 12:00] VITALS: BP 101/67
--- NOTE | 2020-02-12 15:03 | CONSULTATION REPORT ---
DATE OF SERVICE: INPATIENT CONSULTATION REASON FOR CONSULTATION: Right lateral malleolus fracture. HISTORY OF PRESENT ILLNESS: The patient is a 69-year-old gentleman who was admitted to the cardiac step-down unit and had had some ankle pain. Radiographs were obtained showed nondisplaced lateral malleolus fracture, for which I was consulted. He denies any medial pain. On exam, the patient is mildly tender over his lateral malleolus. He is nontender over his medial malleolus. He had negative squeeze test. RADIOGRAPHS: Revealed a Abel type B lateral malleolus fracture with no widening of the mortise or the syndesmosis. IMPRESSION: Stable right lateral malleolus fracture. RECOMMENDATIONS: Weightbearing as tolerated in a walking boot. He can remove the walking boot when sitting and when sleeping. He required only for ambulation and he can weightbear as symptoms allow. FOLLOWUP: Followup as an outpatient at [facility] approximately 2 weeks after discharge. Thank you for the consultation. Job ID: [id number] DocumentID: [id number] Dictated Date: 02/12/2020 12:35:22 Billet Worker Date: 02/12/2020 15:02:42 Dictated By: VIRI SUMNER MD
[2020-02-13] MEDS ORDERED: CALC300T4 PO (15:07)
[2020-02-13] MEDS ORDERED: ASPI-983 PO (15:07)
== END 2020-02-12 12:15 | DRG 563 ==
LOC: EDUNIT# 13:27 → ER FS 13:28 → CSD 17:00
PROVIDERS: ADMIT Internal Medicine; ATTEND Internal Medicine
DX: S82.64XA Nondisplaced fracture of lateral malleolus of right fibula, initial encounter for closed fracture (principal); L03.314 Cellulitis of groin; F03.90 Unspecified dementia, unspecified severity, without behavioral disturbance, psychotic disturbance, mood disturbance, and anxiety; R07.81 Pleurodynia; R10.2 Pelvic and perineal pain; F41.9 Anxiety disorder, unspecified; F17.200 Nicotine dependence, unspecified, uncomplicated; E78.5 Hyperlipidemia, unspecified; I10 Essential (primary) hypertension; Z79.82 Long term (current) use of aspirin; C61 Malignant neoplasm of prostate; L40.0 Psoriasis vulgaris; F10.20 Alcohol dependence, uncomplicated; W01.0XXA Fall on same level from slipping, tripping and stumbling without subsequent striking against object, initial encounter; Y92.002 Bathroom of unspecified non-institutional (private) residence as the place of occurrence of the external cause
CPT/HCPCS: 29515; 36415; 70450; 71045; 72125; 73521; 73610; 80053; 80306; 80320; 81000; 82550; 85007; 85025; 85027; 85610; 85730; 86141; 94640; 94664

== ENCOUNTER 2020-02-12 10:09 | Inpatient (IN) | payer MEDICARE ==
[~2020-02-12] VITALS: Ht 182.9 cm; Wt 109.7 kg
[2020-02-12] MEDS ORDERED: FLEET ENEMA ADULT 1 EA BTL PR PRN (10:30)
[2020-02-12] MEDS ORDERED: ACETAMINOPHEN 500 MG TAB (TYLENOL) PO PRN ×2 (10:30→15:30)
[2020-02-12] MEDS ORDERED: BISACODYL 10 MG SUPP (DULCOLAX) PR PRN (10:30)
[2020-02-12] MEDS ORDERED: guaiFENesin/CODEINE (ROBITUSSIN AC) 10ML UDC PO PRN (10:30)
[2020-02-12] MEDS ORDERED: DOCUSATE SODIUM 100 MG (COLACE) CAP PO PRN ×2 (10:30→15:30)
[2020-02-12] MEDS ORDERED: LACTULOSE SYRUP 10GM/15ML (ENULOSE) 30ML UDC PO PRN (10:30)
[2020-02-12] MEDS ORDERED: ONDANSETRON 4 MG (ZOFRAN) ORAL DISSOLVE TAB PO PRN (10:30)
[2020-02-12] MEDS ORDERED: CALCIUM CARBONATE 500 MG (TUMS) TAB.CHEW PO PRN ×2 (10:30→15:30)
[2020-02-12] MEDS ORDERED: ALPRAZolam 0.25 MG (XANAX) TAB PO PRN (10:30)
[2020-02-12] MEDS ORDERED: diphenhydrAMINE 25 MG TAB (BENADRYL) PO PRN ×2 (10:30→15:30)
[2020-02-12] MEDS ORDERED: LOPERAMIDE 2 MG (IMODIUM) TABLET PO PRN ×2 (10:30→15:30)
[2020-02-12] MEDS ORDERED: MELATONIN 3 MG TABLET PO PRN ×2 (10:30→15:30)
--- NOTE | 2020-02-12 12:15 | NUR ---
Brendan Stoll admitted to room 228-1, with an admitting diagnosis of Right Fibula Fx , on 02/12/20 from 5th floor cardiac step down [facility] via wheelchair, accompanied by staff and adult son. BRENDAN STOLL introduced to surroundings, call light, bed controls, phone, TV, temperature control, lights, meal times, smoking policy, visitor policy, side rail policy, bathrooms and showers. Patient Rights given to patient in the handbook. BRENDAN STOLL verbalizes understanding that [facility] is not responsible for the loss or damage to any personal effects or valuables that are kept in the patients posession during their hospitalization. The following Patient Care Plans were discussed with the patient: Discharge Planning, Falls and Fractures. BRENDAN STOLL verbalizes understanding of Interdisciplinary Patient Education. Patient and/or family were informed about the Rapid Response Team and its purpose. Patient received Patient Rights Booklet, which includes Privacy Act Statement and Data Collection Information Summary.
[2020-02-12] MEDS ORDERED: ACETAMINOPHEN 325 MG TABLET PO PRN (13:30)
--- NOTE | 2020-02-12 13:55 | Occupational Therapy Eval ---
OT Evaluation-General/PLF Medical Diagnosis Admission Date Feb 12, 2020 at 12:15 Medical Diagnosis: Right distal fibula fracture. Onset Date: Feb 11, 2020 Therapy Diagnosis Therapy Diagnosis: Decreased ADL status Height/Weight Height (Feet): 6 Height (Inches): 2.00 Weight (Pounds): 207 Weight (Ounces): 8.0 Precautions Precautions/Isolations: Standard Precautions Weight Bear Status Weight Bearing Restriction: Weight Bearing/Tolerated Location Restriction: RT FOOT Referral Physician: Darlyn Kuo DO Referral Reason: Activity Tolerance, Self Care, Evaluation/Treatment, Strengthening/ROM Medical History Pertinent Medical History: Alcoholism, HTN, Prostate CA, Smoking Additional Medical History see nursing. anxiety, current smokeless tobacco and everyday drinker, HTN, prostate Ca Current History Pt fell from shower after getting wrapped in shower curtain, pt on floor for ~12 hours. Admits via EMS from home. c/o hip and rib pain. R nondisplaced distal fib ular fx. Reviewed History: Yes Social History Home: Multilevel Current Living Status: Alone Entry Into Home: Stairs With Railing Steps Into Home: 6 Steps Inside Home: 12 12 to basement with walk in tub ADL-Prior Level of Function SCALE: Activities may be completed with or without assistive devices. 7-Gujwfnunjx-jorqwst completes the activity by him/herself with no assistance from a helper. 5-Set-up or Clean-up Assistance-helper sets up or cleans up; patient completes activity. Gilchrist assists only prior to or following the activity. 4-Supervision or Touching Assistance-helper provides verbal cues and/or touching/steadying and/or contact guard assistance as patient completes activity. Assistance may be provided throughout the activity or intermittently. 3-Partial/Moderate Assistance-helper does LESS THAN HALF the effort. Gilchrist lifts, holds or supports trunk or limbs, but provides less than half the effort. 2-Substantial/Maximal Assistance-helper does MORE THAN HALF the effort. Gilchrist lifts or holds trunk or limbs and provides more than half the effort. 7-Uxgmpizoo-pvsfhp does ALL the effort. Patient does none of the effort to complete the activity. Or, the assistance of 2 or more helpers is required for the patient to complete the activity. If activity was not attempted, code reason: 7-Patient Refused. 9-Not Applicable-not attempted and the patient did not perform the activity before the current illness, exacerbation or injury. 10-Not Attempted due to Environmental Limitations-(lack of equipment, weather restraints, etc.). 88-Not Attempted due to Medical Conditions or Safety Concerns. ADL PLOF Comments Pt IND w/out use of AE per pt. Self Care: Independent Functional Cognition: Independent DME/Equipment: Bath Chair, Shower DME/Equipment Comments shower on 1st floor, has sc in tub and can bring up from basement. No AD per pt. Occupation: retired. Drive Self: Yes OT Current Status Subjective Pt seen on 5th floor. Pt states pain in R leg, agrees to OT/ PT cotreat. Cotreat rendered due to Pt's decreased mobility and decreased strength/ dependent transfers. OT focuses on ADLs and UE movement while PT focuses on balance and LB movement. Pt brought to ARU by staff. Mental Status/Objective Patient Orientation: Person, Place, Situation Attachments: IV Current Glasses/Contacts: No Hearing Aids: No Dentures/Partials: No Hand Dominance: Right Upper Extremity ROM WFL BUE Upper Extremity Coordination WFL BUE Upper Extremity Sensation WFL BUE Upper Extremity Strength WFL BUE Edema: slight pitting R dorsum of foot ADL-Treatment Eating (QC): 6 Oral Hygiene (QC): 6 Shower/Bathe Self (QC): 3 (assist with LE (feet) and bottom) Upper Body Dressing (QC): 5 (s/u) Lower Body Dressing (QC): 2 (max A with assist x2 to stand and pull up) On/Off Footwear (QC): 2 (max A donning, CGA doffing.) Toileting Hygiene (QC): 1 (max Ax2 to stand and TD to complete toilet hygiene. ) Other Treatments Pt completes sit to stand with max A x2. Pt states pain, very verbal when standing/ attempting movement. Pt educated on ARU expectations and OT/ PT role. Use of w/c for mobility to ARU, pt completes transfer to EOB with max A stand and use of FWW with CGA throughout to complete bathing. Pt requires assist for motivation and movement. Pt's son beings clothing during this time. Nursing doffs IV. Pt requires cues for movement and sit to stand UE placement for success. Pt very active at home, per pt. Pt drives to gas station ~3x per day, eats gas station food for each meal. Pt completes car tx with PT assist and OT cues for safety/ arm placement. Pt verbally expressing pain throughout, self limits. Pt completes w/c mob with min cues to therapy gym and back to room. Pt sit to stand max A and sits EOB, sit to supine with Max A for LB mobility. Pt educated primary special education teacher light. All needs met, call light in reach. Education OT Patient Education: Correct positioning, Modified ADL techniques, Purpose of tx/functional activities, Reviewed precautions, Rehab process, Safety issues, Tr ansfer techniques, W/C management Teaching Recipient: Patient Teaching Methods: Demonstration, Discussion Response to Teaching: Verbalize Understanding, Return Demonstration, Reinforcement Needed OT Short Term Goals Short Term Goals Time Frame: Feb 19, 2020 Shower/bathe self: 3 Upper body dressin Lower body dressin OT Design Eng Goals Longterm Goals Time Frame: Feb 26, 2020 Eating (QC): 6 Oral Hygiene (QC): 6 Toileting Hygiene (QC): 6 Shower/Bathe Self (QC): 6 Upper Body Dressing (QC): 6 Lower Body Dressing (QC): 6 On/Off Footwear (QC): 6 Additional Goals: 1-Demonstrate ADL Tasks, 2-Verbalize Understanding, 3- ImproveStrength/Tiff 1=Demonstrate adherence to instructed precautions during ADL tasks. 2=Patient will verbalize/demonstrate understanding of assistive devices/modifications for ADL. 3=Patient will improve strength/tolerance for activity to enable patient to perform ADL's. OT Education/Plan Problem List/Assessment Assessment: Decreased Activ Tolerance, Decreased Safety Aware, Decreased UE Strength, Dependent Transfers, Edema, Impaired Bed Mobility, Impaired Funct Balance, Impaired I ADL's, Impaired Self-Care Skills Discharge Recommendations Plan/Recommendations: Continue POC Therapy Discharge Recommendati: Scheduled Assistance, Home & Family Equpiment Recommendations-D/C: Rails on Tub/Shower, Bath Chair Treatment Plan/Plan of Care Treatment,Training & Education: Yes Patient would benefit from OT for education, treatment and training to promote independence in ADL's, mobility, safety and/or upper extremity function for ADL's. Plan of Care: ADL Retraining, Caregiver Training, Concurrent Therapy, Functional Mobility, Group Exercise/Act as Ind, UE Funct Exercise/Act, W/C Management Training Treatment Duration: Feb 26, 2020 Frequency: At least 5 of 7 days/Wk (IRF) Estimated Hrs Per Day: 1.5 hours per day Agreement: Yes Rehab Potential: Fair Time/GCodes Start Time: 12:15 Stop Time: 13:55 Total Time Billed (hr/min): 100 Billed Treatment Time 4643-5904: PT eval [id number]: OT eval PT/ OT cotreat: 4563-3021 OT/ PT cotreat. Cotreat rendered due to Pt's decreased mobility and decreased strength/ dependent transfers. OT focuses on ADLs and UE movement while PT focuses on balance and LB movement. 1, EVM (10) 1, ADL 5, EX (90) ED LANDEROS OTR Feb 12, 2020 13:55
--- NOTE | 2020-02-12 14:00 | Physical Therapy Evaluation ---
PT Evaluation-General Medical Diagnosis Admission Date Feb 12, 2020 at 12:15 Medical Diagnosis: Right distal fibula fracture. Onset Date: Feb 11, 2020 Therapy Diagnosis Therapy Diagnosis: impaired mobility, strength, endurance, balance Height/Weight Height (Feet): 6 Height (Inches): 2.00 Weight (Pounds): 207 Weight (Ounces): 8.0 Weight Bear Status Right Lower Extremity: Right Weight Bearing/Tolerated cam boot on the right side Referral Physician: Darlyn Kuo DO Reason for Referral: Evaluation/Treatment Medical History Pertinent Medical History: Alcoholism, HTN, Prostate CA, Smoking Additional Medical History Alcoholism, HTN, Prostate CA, Smoking (smokeless tobacco) Reviewed History: Yes Social History Home: Single Level Current Living Status: Alone Entry Into Home: Stairs With Railing PT Steps Into Home: 7 Prior Prior Level of Function SCALE: Activities may be completed with or without assistive devices. 3-Goapduztay-bznpqxj completes the activity by him/herself with no assistance fr om a helper. 5-Set-up or Clean-up Assistance-helper sets up or cleans up; patient completes activity. Leonidas assists only prior to or following the activity. 4-Supervision or Touching Assistance-helper provides verbal cues and/or touching/steadying and/or contact guard assistance as patient completes activity. Assistance may be provided throughout the activity or intermittently. 3-Partial/Moderate Assistance-helper does LESS THAN HALF the effort. Leonidas lifts, holds or supports trunk or limbs, but provides less than half the effort. 2-Substantial/Maximal Assistance-helper does MORE THAN HALF the effort. Leonidas lifts or holds trunk or limbs and provides more than half the effort. 1-Mifweygpf-lkjqgo does ALL the effort. Patient does none of the effort to complete the activity. Or, the assistance of 2 or more helpers is required for the patient to complete the activity. If activity was not attempted, code reason: 7-Patient Refused. 9-Not Applicable-not attempted and the patient did not perform the activity before the current illness, exacerbation or injury. 10-Not Attempted due to Environmental Limitations-(lack of equipment, weather restraints, etc.). 88-Not Attempted due to Medical Conditions or Safety Concerns. Bed Mobility: 6 Transfers (B,C,W/C): 6 Gait: 6 Stairs: 6 Indoor Mobility (Ambulation): Independent Stairs: Independent PT Evaluation-Current Subjective Patient in recliner pre tx, agrees to PT, has 3/10 pain in right leg. Will be co-treating with OT after evaluation due to poor patient mobility, strength, endurance, balance, the need to coordinate UE and LE during activity, poor safety awareness, reduce risk of falls. Pt/Family Goals to be independent at home. Objective Patient Orientation: Person, Place, Situation Attachments: IV ROM/Strength ROM Lower Extremities NT RLE, WNL LLE Sensory Vision: Functional Hearing: Functional Sensation Right Lower Extremit: Intact Sensation Left Lower Extremity: Intact Transfers Roll Left to Right (QC): 6 Sit to Lying (QC): 3 Lying to Sitting/Side of Bed(Q: 3 Sit to Stand (QC): 2 Chair/Rre-sl-Esisq Xfer(QC): 2 Toilet Transfer (QC): 2 Car Transfer (QC): 2 Patient performs bed mobility with independence, supine <-> sit min assist, sit <-> stand max assist, transfer max assist, car transfer max assist. Patient has a lot of pain with any movement, needs cues for safety and positioning. Gait Does the Patient Walk?: Yes Mode of Locomotion: Walk Anticipated Mode of Locomotion: Walk Walk 10 feet (QC): 3 Walk 50 ft with 2 Turns(QC): 88 Walk 150 ft (QC): 88 Walking 10ft/uneven surface-QC: 88 Distance: 10', 5'x2 Gait Assistive Device: FWW Comments/Gait Description Patient has antalgic ambulation, slow, small steps, anxious, needs cues for safety and positioning. Wheelchair Training Does the Pt Use a Wheelchair?: Yes Distance: 150' Wheel 50 ft with 2 turns (QC): 4 Wheel 150 ft (QC): 4 Type of Wheelchair: Manual slow but is able to turn without assist Stairs 1 Step (curb) (QC): 88 4 Steps (QC): 88 12 Steps (QC): 88 Balance Sitting Static: Normal Sitting Dynamic: Normal Standing Static: Poor Standing Dynamic: Poor Picking up an Object (QC): 88 Treatment bathing and dressing. PT performed bed mobility and transfers, WC mobility, ambulation, standing and positioning during dressing and bathing, OT performed dressing and bathing, and assist with transfers and UE positioning and safety. Assessment/Needs Patient has impaired mobility, strength, endurance, balance. Patient needs a lot of assist standing from low surfaces. Rehab Potential: Fair PT Short Term Goals Short Term Goals Time Frame: Feb 19, 2020 Roll Left & Right: 6 Sit to lyin Lying to sitting on side of be: 6 Sit to stand: 3 Chair/ifc-so-ddkhd transfer: 3 Walk 10 feet: 3 PT Shelter Goals Shelter Goals PT Rehabilitation Services Aide Goals Time Frame: Mar 04, 2020 Roll Left & Right (QC): 6 Sit to Lying (QC): 6 Lying-Sitting on Side/Bed(QC): 6 Sit to Stand (QC): 4 Chair/Rkd-kv-Lndkh Xfer(QC): 4 Toilet Transfer (QC): 4 Car Transfer (QC): 4 Does the Patient Walk: Yes Walk 10 feet (QC): 4 Walk 50ft with 2 Turns (QC): 4 Walk 150 ft (QC): 88 Walking 10ft on Uneven Surface: 88 1 Step (curb) (QC): 4 4 Steps (QC): 4 12 Steps (QC): 88 Picking up an Object (QC): 88 Wheel 50 feet with 2 turns (QC: 6 Wheel 150 feet: 6 PT Plan Problem List Problem List: Activity Tolerance, Functional Strength, Safety, Balance, Gait, Transfer, Bed Mobility, ROM Treatment/Plan Treatment Plan: Continue Plan of Care Treatment Plan: Bed Mobility, Education, Functional Activity Tiff, Functional Strength, Group Therapy, Gait, Safety, Therapeutic Exercise, Transfers Treatment Duration: Mar 04, 2020 Frequency: At least 5 of 7 days/Wk (IRF) Estimated Hrs Per Day: 1.5 hours per day Patient and/or Family Agrees t: Yes Safety Risks/Education Patient Education: Gait Training, Transfer Techniques, Reviewed Precautions, Correct Positioning, W/C Management, Safety Issues Teaching Recipient: Patient Teaching Methods: Demonstration, Discussion Response to Teaching: Reinforcement Needed Discharge Recommendations Plan Patient will perform bed mobility and transfer training, balance and endurance training, functional strengthening, stair training, gait training, and education, to improve functional mobility and independence at home. Therapy Discharge Recommendati: Home & Family Time/GCodes Time In: 1215 Time Out: 1355 Total Billed Treatment 1 visit EVM 10' FA 80' (5 units) PT eval [id number], OT eval [id number], co-treat [id number]. ANGEL BUSH PT Feb 12, 2020 14:00
--- NOTE | 2020-02-12 15:28 | PM&R Post Admission Assessment ---
PM&R HP Date of Visit: Feb 12, 2020 Time of Visit: 13:00 History of Present Illness CC: Debility following right distal fibula fracture HPI: This is a 69yoWM clinic Pt of Dr. Luna in [place], who suffered a fall, was found to have a right distal fibula fracturealong with rhabdomyolysis, along with severe scrotal cellulitis so he was placed on IV fluids, IV antibiotics of Ancef, pain control and current he is adjusting to the admission into inpatient rehab to manage his ADLs and have a walking boot placed and weight-bearing as tolerated. He does have a history of some mild cognitive deficit. He lives alone and we will restart all of his home medications once they are reconciled.Patient is maintained on alcohol withdrawal protocol. I conferred with PCP and MMSE was 20 in October 2019. Alcoholism is significant and fci issue. Past Zryhtzl-Olimyb-Tnrqhy Hx Past Med/Social Hx: Reviewed Nursing Past Med/Soc Hx, Reviewed and Corrections made Patient Social History Marrital Status: single Employed/Student: retired ([address] in [place]) Alcohol Use: Regular Use Number of Drinks Today: GG Alcohol Beverage of Choice: Whiskey Recreational Drug Use: No Smoking Status: Current Everyday Smoker Type Used: Smokeless Tobacco 2nd Hand Smoke Exposure: Yes Physical Abuse Screen: No Sexual Abuse: No Recent Foreign Travel: No Contact w/other who traveled: No Recent Hopitalizations: No Recent Infectious Disease Expo: No Immunizations Up To Date Pediatric: Yes Date of Pneumonia Vaccine: May 15, 2019 Seasonal Allergies Seasonal Allergies: No Past Medical History Cardiac: High Cholesterol, Hypertension Neurological: Dementia Sexually Transmitted Disease: No HIV/AIDS: No Loss of Vision: Bilateral Hearing Impairment: Denies Cancer: Prostate Psychosocial: Anxiety History of Blood Disorders: No Family History Cataracts 19 FATHER Colon cancer 19 MOTHER Deafness or hearing loss 19 FATHER Gastroenteritis 19 MOTHER Hypercholesterolemia G8 BROTHER sons Hypertension sons sons Myocardial infarction 19 FATHER 19 MOTHER Prostate cancer G8 BROTHER Prior Level of Function Bed Mobility: 6 Transfers: 6 Gait: 6 Stairs: 6 Indoor Mobility (Ambulation): Independent Stairs: Independent Self Care: Independent Functional Cognition: Independent Occupation: retired. Drive Self: Yes Current Level of Fuctioning Roll Left to Right: 6 Sit to Lyin Lying to Sitting/Side of Bed: 3 Sit to Stand: 2 Chair/Qkd-zq-Ymdav Xfer: 2 Car Transfer: 2 Does the Patient Walk: Yes Mode of Locomotion: Walk Anticipated Mode of Locomotion: Walk Walk 10 feet: 3 Walk 50 ft with 2 Turns: 88 Walk 150 ft: 88 Walking 10ft on uneven surface: 88 Gait Assistive Device: FWW Does the Pt Use a Wheelchair: Yes Wheelchair Distance: 150' Wheel 50 ft with 2 turns: 4 Wheel 150 ft: 4 Type of Wheelchair: Manual 1 Step (curb): 88 4 Steps: 88 12 Steps: 88 Picking up an Object: 88 Eatin Oral Hygiene: 6 Shower/Bathe Self: 3 Upper Body Dressin Lower Body Dressin On/Off Footwear: 2 Toileting Hygiene: 1 PM&R Allergy/Meds/Data Review Allergies Coded Allergies: No Known Drug Allergies (Unverified , 11/26/15) Home Medications Scheduled Atorvastatin Calcium (Atorvastatin Calcium), 10 MG PO DAILY, (Reported) Lisinopril (Lisinopril), 20 MG PO DAILY, (Reported) Multivitamin (Multivitamins), 1 TAB PO DAILY, (Reported) Current Medications Current Medications Reviewed Review of Systems Constitutional: see HPI, malaise, weakness EENTM: no symptoms reported Respiratory: no symptoms reported Cardiovascular: no symptoms reported Gastrointestinal: no symptoms reported Genitourinary: no symptoms reported Musculoskeletal: other (right leg pain) Skin: no symptoms reported Psychiatric/Neurological: No Symptoms Reported All Other Systems Reviewed Negative Unless Noted: Yes Physical Exam Physical Exam Vital Signs Vital Signs - First Documented 02/12/20 13:00 Pulse 118 Capillary Refill : Height, Weight, BMI Height: 6'2.00" Weight: 207lbs. 8.0oz. [id number]; 27.17 BMI Method: General Appearance: No Apparent Distress, WD/WN, Chronically ill Eyes: Bilateral Eye Normal Inspection, Bilateral Eye PERRL HEENT: PERRL/EOMI, Normal ENT Inspection, Pharynx Normal Neck: Full Range of Motion, Normal Inspection, Non Tender, Supple, Carotid Bruit Respiratory: Chest Non Tender, Lungs Clear, Normal Breath Sounds, No Accessory Muscle Use, No Respiratory Distress Cardiovascular: Regular Rate, Rhythm, No Edema, No Gallop, No JVD, No Murmur, Normal Peripheral Pulses Gastrointestinal: Normal Bowel Sounds, No Organomegaly, No Pulsatile Mass, Non Tender, Soft Back: Normal Inspection, No CVA Tenderness, No Vertebral Tenderness Extremity: Normal Capillary Refill, Normal Inspection, Normal Range of Motion (except right leg), Non Tender, No Calf Tenderness, No Pedal Edema Neurologic/Psychiatric: Alert, Oriented x3, No Motor/Sensory Deficits, Normal Mood/Affect, Abnormal Gait, Motor Weakness (right leg) Skin: Normal Color, Warm/Dry Lymphatic: No Adenopathy PM&R Medical Assessment & Plan REHAB/MEDICAL ASSESSMENT AND PLAN: REHAB IMPAIRMENT GROUP: Right distal fibula fracture ETIOLOGIC DIAGNOSIS: Right distal fibula fracture The comorbidities that impact the patients function and/or functional outcome by: alcoholism, smoker, lives alone, cognitive deficit REHAB PLAN: The patient is being admitted to our comprehensive inpatient rehabilitation facility and can tolerate the intensity of service consisting of at least: 180 minutes of therapy a day, 5 out of 7 days a week Rehab treatment will consist of: PT OT will help regain ADL's with right walking boot and prevent falls, ST will help cognition in order to participate in therapy The patient/family has a good understanding of our discharge process and will benefit from an interdisciplinary inpatient rehabilitation program. The patient has potential to make improvement and is in need of at least two of the following multidisciplinary therapies including but not limited to physical, occupational, speech, and prosthetics and orthotics. Additionally the patient will need services from respiratory, nutritional services, wound care, psyc hology, etc. (Customize this to each patient). Given the patients complex condition and risk of further medical complications, rehabilitation services cannot be safely or effectively provided at a lower level of care such as a long-term facility. BARRIERS TO DISCHARGE: Lives alone, memory loss ESTIMATED LOS: 7 days DISPOSITION: Home with HH RELEVANT CHANGES SINCE PREADMISSION SCREENING: I have compared the patients medical and functional status at the time of the preadmission screening and there are: no changes PROGNOSIS: Good REHABILITATION GOALS: 1. PT OT will help regain ADL's with right walking boot and prevent falls, ST will help cognition in order to participate in therapy All the above goals were reviewed with the patient and he/she is in agreement. By signing this document, I acknowledge that I have personally performed a full physical examination on this patient within 24 hours of admission to this inpatient rehabilitation facility and have determined the patient to be able to tolerate the above course of treatment at an intensive level for a reasonable period of time. I will be completing a detailed individualized Plan of Care for this patient by day #4 of the patients stay based upon the Preadmission Screen, the Post-Admission Evaluation, and the therapy evaluations. Admission Dx/Comorbidities: (1) Closed right fibular fracture Status: Acute ICD Codes: S82.401A - Unspecified fracture of shaft of right fibula, initial encounter for closed fracture (2) Smoker ICD Codes: F17.200 - Nicotine dependence, unspecified, uncomplicated (3) Alcohol abuse ICD Codes: F10.10 - Alcohol abuse, uncomplicated (4) Cognitive deficits ICD Codes: R41.89 - Other symptoms and signs involving cognitive functions and awareness (5) Fall Status: Acute ICD Codes: W19.XXXA - Unspecified fall, initial encounter (6) Physical debility Status: Acute ICD Codes: R53.81 - Other malaise (7) Cellulitis of groin Status: Acute ICD Codes: L03.314 - Cellulitis of groin (8) Prostate cancer Status: Acute ICD Codes: C61 - Prostate cancer Assessment/Plan Assessment and Plan Assess & Plan/Chief Complaint Assessment: Right distal fibula fracture Alcoholism Smoker Memory loss HTN HLP Plan: IRF protocol Pain meds ETOH w/d protocol KAVON DRIVER DO Feb 12, 2020 15:28
[2020-02-12] MEDS ORDERED: HYDROcodone/APAP 5 MG/325 MG (LORTAB) TAB PO PRN (15:30)
[2020-02-12] MEDS ORDERED: ONDANSETRON 4 MG/2 ML (SDV) Z0FRAN IV PRN (15:30)
[2020-02-12] MEDS ORDERED: ONDANSETRON 4 MG (ZOFRAN) ORAL DISSOLVE TAB SL PRN (15:30)
[2020-02-12] MEDS ORDERED: D5 1/2 NS 1000 ML IV SOLUTION 1,000 ML IV PRN (15:30)
[2020-02-12] MEDS ORDERED: LORazepam 1 MG (ATIVAN) TAB PO PRN (15:30)
[2020-02-12] MEDS ORDERED: LORazepam INJ 2 MG/ML (ATIVAN) VIAL IM/IV PRN (15:30)
[2020-02-12] MEDS ORDERED: ENOXAPARIN 40 MG/0.4 ML (LOVENOX) SYR SC SCH (15:30)
[2020-02-12] MEDS ORDERED: ANTACID SUSP 30 ML UDC (MYLANTA) PO PRN (15:30)
[2020-02-12 15:54] VITALS: BP 100/67
[2020-02-12 16:00] VITALS: BP 111/71
[2020-02-12 16:02] VITALS: BP 100/67
[2020-02-12] MEDS: NS IV 1000 ML 1,000 ML IV SCH (16:13)
[2020-02-12] MEDS: ceFAZolin INJECTION 1,000 MG in WATER (STERILE) FOR INJECTION 10 ML IV SCH (16:13)
[2020-02-12] MEDS ORDERED: RT-ALBUTEROL SULF 2.5 MG/3 ML PRE-MIX VIAL INH PRN (18:00)
[2020-02-12] MEDS: DOCUSATE SODIUM 100 MG (COLACE) CAP PO SCH (19:54)
[2020-02-12] MEDS: SENNA W/DOCUSATE (SENOKOT S) TABLET PO SCH (19:55)
[2020-02-12] MEDS: polyethylene glycoL POWDER 17 GM (MIRALAX) PACK PO SCH (19:55)
[2020-02-12] MEDS: MAGNESIUM OXIDE (MAG-OX)400 MG TAB PO SCH (20:12)
[2020-02-12] MEDS: ENOXAPARIN 40 MG/0.4 ML (LOVENOX) SYR SC SCH (20:12)
[2020-02-12] MEDS ORDERED: polyethylene glycoL POWDER 17 GM (MIRALAX) PACK PO SCH (21:00)
[2020-02-12] MEDS ORDERED: SENNA W/DOCUSATE (SENOKOT S) TABLET PO SCH (21:00)
[2020-02-13] MEDS: ceFAZolin INJECTION 1,000 MG in WATER (STERILE) FOR INJECTION 10 ML IV SCH ×3 (00:30→16:56)
[2020-02-13] MEDS: NS IV 1000 ML 1,000 ML IV SCH ×2 (00:30→06:05)
[2020-02-13] MEDS: HYDROcodone/APAP 5 MG/325 MG (LORTAB) TAB PO PRN ×3 (03:34→21:16)
[2020-02-13 05:06] VITALS: BP 129/80
[2020-02-13 05:32] LABS: BASOPHILS % (AUTO) 0 % (0-10); EOSINOPHILS # (AUTO) 0.3 10^3/uL (0.0-0.3); EOSINOPHILS % (AUTO) 5 % (0-10); HEMATOCRIT 33 % (40-54); HEMOGLOBIN 11.2 G/DL (13.3-17.7); LYMPHOCYTES # (AUTO) 2.1 X 10^3 (1.0-4.0); LYMPHOCYTES % (AUTO) 29 % (12-44); MEAN CORPUSCULAR HEMOGLOBIN 32 PG (25-34); MEAN CORPUSCULAR HGB CONC 34 G/DL (32-36); MEAN CORPUSCULAR VOLUME 93 FL (80-99); MEAN PLATELET VOLUME 9.9 FL (7.4-10.4); MONOCYTES # (AUTO) 0.8 X 10^3 (0.0-1.0); MONOCYTES % (AUTO) 11 % (0-12); NEUTROPHILS % (AUTO) 55 % (42-75); PLATELET COUNT 208 10^3/uL (130-400); WHITE BLOOD COUNT 7.2 10^3/uL (4.3-11.0)
[2020-02-13 05:33] LABS: ALBUMIN 3.1 GM/DL (3.2-4.5); CHLORIDE 105 MMOL/L (98-107); POTASSIUM 3.4 MMOL/L (3.6-5.0); SODIUM 134 MMOL/L (135-145)
[2020-02-13 05:35] LABS: CALCIUM 8.3 MG/DL (8.5-10.1); GLUCOSE 107 MG/DL (70-105)
[2020-02-13 05:36] LABS: TOTAL PROTEIN 5.9 GM/DL (6.4-8.2)
[2020-02-13 05:37] LABS: BILIRUBIN,TOTAL 0.6 MG/DL (0.1-1.0); CARBON DIOXIDE 19 MMOL/L (21-32)
[2020-02-13 05:39] LABS: ALKALINE PHOSPHATASE 50 U/L (40-136); GFR ESTIMATED > 60
[2020-02-13 05:40] LABS: BUN/CREATININE RATIO 22
[2020-02-13 05:42] LABS: ALANINE AMINOTRANSFERASE 24 U/L (0-55); CREATINE KINASE 466 U/L (30-200)
[2020-02-13] MEDS: MULTIVIT W/MINERALS TAB (THERAGRAN M) PO SCH (06:13)
[2020-02-13] MEDS: THIAMINE 100 MG (VITAMIN B-1) TAB PO SCH (06:13)
--- NOTE | 2020-02-13 07:43 | NUR ---
PATIENT [place] [facility] [place] AX[facility] MAX OF STAFF, GAIT BELT, FWW. PATIENT REQUIRED HAND OVER HAND INSTRUCTION FOR BODY MECHANICS WITH TRANSFER. PATIENT HAD SOFT, MOD, BROWN BM. PATIENT IS AX4 THIS A.M. PAOLA RN REPORTED ORIENTATION X 2 OF PERSON, PLACE IN EVENING. PATIENT IS WBAT WITH BOOT, RATING PAIN 10/10 WITH TRANSFER. HYDROCODONE ADMINISTERED FOR PAIN. PATIENT EDUCATED ON PAIN MANAGEMENT AND MEDICATION SIDE EFFECTS. REPORTS "NUMBNESS" IN TOES. PATIENT STATES THAT THIS "IS NOT NEW" PEDAL PULSES 2+, CAP REFILL <3 SEC. TRACE EDEMA. RIGHT LATERAL ANKLE WITH PURPLE DISCOLORATION EXTENDED INTO LATERAL FOOT. PATIENT IS ABLE TO WIGGLE TOES WITH EASE. GROIN WITH PEELING AREA, NO ERYTHEMA OR C/O AT THIS TIME. RECEIVING IV CEFAZOLIN. BED RAILS PADDED. CONTINUE CIWA Q4. DENIES FURTHER NEEDS OR C/O AT THIS TIME./ CONT TO MONITOR.
[2020-02-13] MEDS: polyethylene glycoL POWDER 17 GM (MIRALAX) PACK PO SCH ×2 (07:53→20:06)
[2020-02-13] MEDS: SENNA W/DOCUSATE (SENOKOT S) TABLET PO SCH ×2 (07:53→20:06)
[2020-02-13] MEDS: DOCUSATE SODIUM 100 MG (COLACE) CAP PO SCH ×2 (07:53→20:05)
[2020-02-13] MEDS: MAGNESIUM OXIDE (MAG-OX)400 MG TAB PO SCH ×2 (07:53→21:16)
[2020-02-13] MEDS: FOLIC ACID 1 MG TAB PO SCH (07:53)
--- NOTE | 2020-02-13 09:30 | NUR ---
DR DRIVER HERE TO ASSESS PATIENT. NEW ORDER TO D/C TELEMETRY. PATIENT DENIES NEEDS OR C/O AT THIS TIME.
--- NOTE | 2020-02-13 09:32 | PM&R Progress Note ---
Subjective HPI/CC On Admission Date Seen by Provider: Feb 13, 2020 Time Seen by Provider: 09:30 Subjective/Events-last exam CPK is now 466 Potassium 3.4 Bowels are really moving Pain medication of Hydrocodone is given Heplocked IV fluid Dementia will slow recovery, his slum score is 20 per PCP Overall reports no significant pain otherwise Checked meds and labs Conferred with RN Reviewed therapy notes Review of Systems General: Fatigue, Malaise Musculoskeletal: leg pain Neurological: Weakness, Confusion Objective Exam Vital Signs Vital Signs Date Time Temp Pulse Resp B/P (MAP) Pulse Ox O2 Delivery O2 Flow Rate FiO2 02/13/20 17:02 37.0 98 18 122/65 (84) 93 Room Air 02/12/20 15:54 21 Capillary Refill : Less Than 3 SecondsLess Than 3 Seconds General Appearance: No Apparent Distress, WD/WN, Chronically ill HEENT: PERRL/EOMI, Normal ENT Inspection, Pharynx Normal Neck: Full Range of Motion, Normal Inspection, Non Tender, Supple, Carotid Bruit Respiratory: Chest Non Tender, Lungs Clear, Normal Breath Sounds, No Accessory Muscle Use, No Respiratory Distress Cardiovascular: Regular Rate, Rhythm, No Edema, No Gallop, No JVD, No Murmur, N ormal Peripheral Pulses Gastrointestinal: Normal Bowel Sounds, No Organomegaly, No Pulsatile Mass, Non Tender, Soft Back: Normal Inspection, No CVA Tenderness, No Vertebral Tenderness Extremity: Normal Capillary Refill, Normal Inspection, Normal Range of Motion (except right leg), Non Tender, No Calf Tenderness, No Pedal Edema Neurologic/Psychiatric: Alert, Oriented x3, No Motor/Sensory Deficits, Normal Mood/Affect, Abnormal Gait, Motor Weakness (right leg) Skin: Normal Color, Warm/Dry Lymphatic: No Adenopathy Results/Procedures Lab Laboratory Tests 02/13/20 05:10 Patient resulted labs reviewed. FIM Transfers Therapy Code Descriptions/Definitions Functional [place] Measure: 0=Not Assessed/NA 4=Minimal Assistance 1=Total Assistance 5=Supervision or Setup 2=Maximal Assistance 6=Modified [place] 3=Moderate Assistance 7=Complete IndependenceSCALE: Activities may be completed with or without assistive devices. 5-Yvmzscjizr-aeueoyw completes the activity by him/herself with no assistance fr om a helper. 5-Set-up or Clean-up Assistance-helper sets up or cleans up; patient completes activity. [place] assists only prior to or following the activity. 4-Supervision or Touching Assistance-helper provides verbal cues and/or touching/steadying and/or contact guard assistance as patient completes activity. Assistance may be provided throughout the activity or intermittently. 3-Partial/Moderate Assistance-helper does LESS THAN HALF the effort. [place] lifts, holds or supports trunk or limbs, but provides less than half the effort. 2-Substantial/Maximal Assistance-helper does MORE THAN HALF the effort. [place] lifts or holds trunk or limbs and provides more than half the effort. 4-Axvspbfga-mnwana does ALL the effort. Patient does none of the effort to complete the activity. Or, the assistance of 2 or more helpers is required for the patient to complete the activity. If activity was not attempted, code reason: 7-Patient Refused. 9-Not Applicable-not attempted and the patient did not perform the activity before the current illness, exacerbation or injury. 10-Not Attempted due to Environmental Limitations-(lack of equipment, weather restraints, etc.). 88-Not Attempted due to Medical Conditions or Safety Concerns. Roll Left to Right (QC): 6 Sit to Lying (QC): 3 Sit to Stand (QC): 2 Chair/Rie-py-Iaevs Xfer(QC): 2 Car Transfer (QC): 2 Gait Training Does the Patient Walk?: Yes Walk 10 feet (QC): 3 Walk 50 ft with 2 Turns(QC): 88 Walk 150 ft (QC): 88 Walking 10ft/uneven surface-QC: 88 Gait Assistive Device: FWW Wheelchair Training Does the Pt Use a Wheelchair?: Yes Distance: SEE PT GOALS Wheel 50 ft with 2 turns (QC): 4 Wheel 150 ft (QC): 4 Type of Wheelchair: Manual Stair Training 1 Step (curb) (QC): 88 4 Steps (QC): 88 12 Steps (QC): 88 Balance Picking up an Object (QC): 88 ADL-Treatment Eating (QC): 6 Oral Hygiene (QC): 6 Shower/Bathe Self (QC): 3 Upper Body Dressing (QC): 5 Lower Body Dressing (QC): 2 On/Off Footwear (QC): 2 Toileting Hygiene (QC): 1 Assessment/Plan Assessment and Plan Assess & Plan/Chief Complaint Assessment: Right distal fibula fracture Alcoholism Smoker Memory loss HTN HLP Rhabdomyolysis Hypokalemia Plan: IRF protocol Pain meds ETOH w/d protocol HLIVF Replace potassium (1) Closed right fibular fracture Status: Acute (2) Smoker (3) Alcohol abuse (4) Cognitive deficits (5) Fall Status: Acute (6) Physical debility Status: Acute (7) Cellulitis of groin Status: Acute (8) Prostate cancer Status: Acute KAVON DRIVER DO Feb 13, 2020 09:32
--- NOTE | 2020-02-13 10:11 | Occupational Ther Daily Note ---
OT Current Status-Daily Note Subjective 0900: Pt seen in bed. Pt expresses no pain while reclining, pt alert/ oriented. Pt very hesitant to therapy. Requires constant cues for purpose of therapy and requirement for strengthening to go home. Pt states multiple times, "Can't you just let me stay in bed this first day?" Encouragement throughout during tx. [id number]: Pt seen in w/c post-PT session . Pt states fatigue, though willing to complete OT tx session with goals of UE strengthening/ HEP. Pt very vocal during movement, though does not c/o specified pain Mental Status/Objective Patient Orientation: Normal For Age Attachments: Telemetry ADL-Treatment Therapy Code Descriptions/Definitions Functional [place] Measure: 0=Not Assessed/NA 4=Minimal Assistance 1=Total Assistance 5=Supervision or Setup 2=Maximal Assistance 6=Modified [place] 3=Moderate Assistance 7=Complete IndependenceSCALE: Activities may be completed with or without assistive devices. 3-Imleidsqli-ctjmqiq completes the activity by him/herself with no assistance from a helper. 5-Set-up or Clean-up Assistance-helper sets up or cleans up; patient completes activity. [place] assists only prior to or following the activity. 4-Supervision or Touching Assistance-helper provides verbal cues and/or touching/steadying and/or contact guard assistance as patient completes activity. Assistance may be provided throughout the activity or intermittently. 3-Partial/Moderate Assistance-helper does LESS THAN HALF the effort. [place] lifts, holds or supports trunk or limbs, but provides less than half the effort. 2-Substantial/Maximal Assistance-helper does MORE THAN HALF the effort. [place] lifts or holds trunk or limbs and provides more than half the effort. 9-Axnbvrguv-ghrdhm does ALL the effort. Patient does none of the effort to complete the activity. Or, the assistance of 2 or more helpers is required for the patient to complete the activity. If activity was not attempted, code reason: 7-Patient Refused. 9-Not Applicable-not attempted and the patient did not perform the activity before the current illness, exacerbation or injury. 10-Not Attempted due to Environmental Limitations-(lack of equipment, weather restraints, etc.). 88-Not Attempted due to Medical Conditions or Safety Concerns. Eating (QC): 6 Oral Hygiene (QC): 7 Upper Body Dressing (QC): 5 Lower Body Dressing (QC): 3 (completes threading BLE with tier and detonator, requires assist x2 to stand per pt request and pants brought over hips with assist.) On/Off Footwear: 2 (max A; Pt able to complete top 3 straps to boot on RLE. Pt reluctant to complete tasks, educated on no one at home to complete these tasks and pt agrees and completes with more IND) Other Treatment 0900:Pt bed mob with max encouragement, reaches EOB with min A as pt's bottom in hump in bed. Pt dresses EOB with good dynamic sitting balance. Pt sit to stand with max Ax2 due to pt's decreased strength/ pain/ decreased motivation. Pt requires cues for hand placement during transfers. Pt ambulates ~10 feet to w/c, states, "Don't let go of me." Pt sits with control. Pt completes w/c mob with min cues for positioning/ efficiency. Pt completes sit to stand from w/c level with mod A x1 person and 1 person SBA due to pt's FOF. Pt sits in recliner chair with moderate control, all needs met, call light in reach. 9060-1948: Pt requires rest break prior to standing from w/c. Pt urinates, with 5 min rest break given. Pt completes stance with increased encouragement, stands with mod A x1 person. Pt c/o distance from w/c to recliner, pt encouraged to walk the ~7 feet and completes with success. Limited control while sitting. Pt educated on UE HEP with demonstration and handout given. Pt return demonstrates with moderate skilled cues for placement/ tension. Pt completes all ex with 15 reps bilaterally. Instructed to complete 2x per day w/out therapy. Pt understands. Pt s/u for lunch time with BLE elevated in recliner with all needs met, call light in reach, table across lap area. Education OT Patient Education: Correct positioning, Exercise program, Home exercise pr ogram, Modified ADL techniques, Purpose of tx/functional activities, Rehab process, Safety issues, Transfer techniques, Use of adapted equipment, W/C management Teaching Recipient: Patient Teaching Methods: Demonstration, Handout, Discussion Response to Teaching: Verbalize Understanding, Return Demonstration, Reinfor cement Needed OT Short Term Goals Short Term Goals Time Frame: Feb 19, 2020 Shower/bathe self: 3 Upper body dressin Lower body dressin OT Chcf Goals Slasher Sawyer Goals Time Frame: Feb 26, 2020 Eating (QC): 6 Oral Hygiene (QC): 6 Toileting Hygiene (QC): 6 Shower/Bathe Self (QC): 6 Upper Body Dressing (QC): 6 Lower Body Dressing (QC): 6 On/Off Footwear (QC): 6 Additional Goals: 1-Demonstrate ADL Tasks, 2-Verbalize Understanding, 3- ImproveStrength/Tiff 1=Demonstrate adherence to instructed precautions during ADL tasks. 2=Patient will verbalize/demonstrate understanding of assistive devices/modifications for ADL. 3=Patient will improve strength/tolerance for activity to enable patient to perform ADL's. OT Education/Plan Problem List/Assessment Assessment: Decreased Activ Tolerance, Decreased UE Strength, Dependent Transfers, Impaired Bed Mobility, Impaired Funct Balance, Impaired I ADL's, Impaired Self-Care Skills Discharge Recommendations Plan/Recommendations: Continue POC Therapy Discharge Recommendati: Intermittent Supervision, Meals on Wheels Treatment Plan/Plan of Care Treatment,Training & Education: Yes Patient would benefit from OT for education, treatment and training to promote independence in ADL's, mobility, safety and/or upper extremity function for ADL's. Plan of Care: ADL Retraining, Caregiver Training, Concurrent Therapy, Functional Mobility, Group Exercise/Act as Ind, UE Funct Exercise/Act, W/C Management Training Treatment Duration: Feb 26, 2020 Frequency: At least 5 of 7 days/Wk (IRF) Estimated Hrs Per Day: 1.5 hours per day Agreement: Yes Rehab Potential: Fair Time/GCodes Start Time: 09:00 (1130) Stop Time: 10:00 (1200) Total Time Billed (hr/min): 90 (60 + 30) Billed Treatment Time 8714-3216: 1, ADL 2, WC, FA (60) 5731-5353: 1, FA, EX (30) Total: 90 ED LANDEROS OTR Feb 13, 2020 10:11
--- NOTE | 2020-02-13 12:21 | Physical Therapy Daily Note ---
PT Daily Note-Current Subjective Pt sitting in recliner upon arrival. Pt declines but with much encouragement pt agrees to PT. Pt continues to use Chewing Tobacco even after being reminded of hospital tobacco policy. Pain Numeric Pain Scale: 5-Moderate Pain Location: Right Location Body Site: Knee Pain Description: Ache, Tightness Mental Status Patient Orientation: Person, Place, Situation Attachments: Other-See Comments (Walking boot for R LE) Transfers SCALE: Activities may be completed with or without assistive devices. 1-Sbslgtjrsj-ldlfbur completes the activity by him/herself with no assistance from a helper. 5-Set-up or Clean-up Assistance-helper sets up or cleans up; patient completes activity. [place] assists only prior to or following the activity. 4-Supervision or Touching Assistance-helper provides verbal cues and/or touching/steadying and/or contact guard assistance as patient completes activity. Assistance may be provided throughout the activity or intermittently. 3-Partial/Moderate Assistance-helper does LESS THAN HALF the effort. [place] lifts, holds or supports trunk or limbs, but provides less than half the effort. 2-Substantial/Maximal Assistance-helper does MORE THAN HALF the effort. [place] lifts or holds trunk or limbs and provides more than half the effort. 5-Numirjseu-hyatod does ALL the effort. Patient does none of the effort to complete the activity. Or, the assistance of 2 or more helpers is required for the patient to complete the activity. If activity was not attempted, code reason: 7-Patient Refused. 9-Not Applicable-not attempted and the patient did not perform the activity before the current illness, exacerbation or injury. 10-Not Attempted due to Environmental Limitations-(lack of equipment, weather restraints, etc.). 88-Not Attempted due to Medical Conditions or Safety Concerns. Sit to Stand (QC): 2 Weight Bearing Right Lower Extremity: Right Weight Bearing/Tolerated cam boot on the right side Wheelchair Training Does the Pt Use a Wheelchair?: Yes Wheel 50 ft with 2 turns (QC): 5 Wheel 150 ft (QC): 5 Type of Wheelchair: Manual Exercises Seated Therapy Exercises: Ankle pumps, Long arc quads, Hip flexion, Kicking activity, Hip abd/add, Glut set Seated Reps: 15 NuStep Minutes: 7 NuStep Workload: 3 Treatments Pt transfers from recliner at Max A due to feeling afraid of falling. Pt transfers to [facility] and propels to Therapy Gym. Pt uses NuStep for 7m at [facility] 3 then completes SEated EX in [facility] after extended RB. Pt propels [facility] back to room at end of Rx to use urinal. Ot arrives at end of Rx. Assessment Current Status: Fair Progress Pt self limits and needs a lot of encouragement for Rx. Pt needs extended RB. PT Short Term Goals Short Term Goals Time Frame: Feb 19, 2020 Roll Left & Right: 6 Sit to lyin Lying to sitting on side of be: 6 Sit to stand: 3 Chair/wbh-sj-ohakh transfer: 3 Walk 10 feet: 3 PT Assistant Housekeeping Manager Goals Assistant Housekeeping Manager Goals PT Snf Goals Time Frame: Mar 04, 2020 Roll Left & Right (QC): 6 Sit to Lying (QC): 6 Lying-Sitting on Side/Bed(QC): 6 Sit to Stand (QC): 4 Chair/Pvx-pz-Nrqvy Xfer(QC): 4 Toilet Transfer (QC): 4 Car Transfer (QC): 4 Does the Patient Walk: Yes Walk 10 feet (QC): 4 Walk 50ft with 2 Turns (QC): 4 Walk 150 ft (QC): 88 Walking 10ft on Uneven Surface: 88 1 Step (curb) (QC): 4 4 Steps (QC): 4 12 Steps (QC): 88 Picking up an Object (QC): 88 Wheel 50 feet with 2 turns (QC: 6 Wheel 150 feet: 6 PT Plan Problem List Problem List: Activity Tolerance, Functional Strength, Safety, Balance, Transfer, ROM Treatment/Plan Treatment Plan: Continue Plan of Care Treatment Plan: Bed Mobility, Education, Functional Activity Tiff, Functional Strength, Group Therapy, Gait, Safety, Therapeutic Exercise, Transfers Treatment Duration: Mar 04, 2020 Frequency: At least 5 of 7 days/Wk (IRF) Estimated Hrs Per Day: 1.5 hours per day Patient and/or Family Agrees t: Yes Safety Risks/Education Patient Education: Transfer Techniques, Correct Positioning, Safety Issues Teaching Recipient: Patient Teaching Methods: Discussion Response to Teaching: Reinforcement Needed Time/GCodes Time In: 1030 Time Out: 1130 Total Billed Treatment Time: 60 Total Billed Treatment 1, EX x2 (30m), [facility] (15m) & FA (15m) LEANNE AVALOS ULTRASONIC TESTER Feb 13, 2020 12:21
[2020-02-13] MEDS ORDERED: KCL 10 MEQ TAB (MICRO K) PO NR (12:45)
--- NOTE | 2020-02-13 14:44 | ST Cognitive Linguistic Eval ---
Speech Evaluation-General Medical Diagnosis Right distal fibula fracture. Onset Date: Feb 11, 2020 Therapy Diagnosis Therapy Diagnosis: Cognitive-communication Referral Referring Physician: Dr. Kuo Medical History Pertinent Medical History: Alcoholism, HTN, Prostate CA, Smoking Reviewed History: Yes Social History Current Living Status: Alone Speech PLF-Current Status Prior Level of Function Patient lived alone in his own home where he was independent for his daily needs. Subjective Patient was pleasant and cooperative with the cognitive assessment. Language Eval: Auditory Comprehends Simple Yes/No Ques: Functional Indent/Objects Multiple Virgen: Functional Ident/Pics in Multiple Virgen: Functional Follows 1-Step Commands: Functional Follows Complex Directions: Mild Follows General Conversations: Functional Language Eval: Verbal Language Completes Spontaneous Greeting: Functional Produces Auto, Serial Info: Functional Imitates Simple Words/Phrases: Functional Word Finding: Mild Requests Basic Needs: Functional States Basic Personal Info: Functional Expresses Complex Ideas: Mild Objective Cognitive Domain Attention: Mild Memory: Mild Problem Solving: Mild Executive Functions: Mild Visuospatial Skills: WNL Composite Severity Rating: Mild Clock Drawing Severity Rating: WNL Objective Formal/Standardized Tests [facility] Status ([facility]) Results 23/30, Mild Neurocognitive Disorder range of function Oral Motor/Speech Production Within Normal Limits Impression Patient is a 69 y/o male who was admitted to the ARU s/p fall with injury. Patient was given the SLUMS at bedside with a score of 23/30 obtained. This score is within the MNCD range of function. The patient will receive skilled ST services based on current and previous (October) SLUMS scores. Speech Patient Assess Expression of Ideas/Wants: Exhibits (3) Understanding Verbal Content: Usually Understands (3) Brief Interview-Mental Status: Yes Repetition of Three Words: Three (3) Temporal Orientation: Year: Correct (3) Temporal Orientation: Month: Accurate within 5 days(2) Temporal Orientation: Day: Correct (1) Recall : Wear to say "Sock": Yes,after cueing (1) Recall : Color: Yes, after cueing (1) Recall : Bed: Yes,after cueing (1) Memory/Recall Ability: Current season, That he or she is in a hsp/hsp unit Speech Short Term Goals Short Term Goals Short Term Goals 1) Patient will complete memory tasks related to his daily needs at 90% or g reater. 2) Patient will complete problem solving tasks related to his daily needs at 90% or greater. 3) Patient will complete safety awareness tasks related to his daily needs at 90% or greater. Speech Psychologist Chief Goals Long-Term Goals Patient will improve cognitive communication necessary for safety and daily living tasks with minimal assist. Speech-Plan Patient/Family Goals Patient/Family Goals: Patient plans on returning to his home upon rehab discharge. Treatment Plan Speech Therapy Treatment Plan: Continue Plan of Care Frequency: 5 times per week Estimated Hrs Per Day: .5 hour per day Rehab Potential: Fair Barriers to Learning: Patient's medical status, cognitive deficits Pt/Family Agrees to Plan: Yes Safety Risks/Education Teaching Recipient: Patient Teaching Methods: Discussion Response to Teaching: Verbalize Understanding Education Topics Provided: Safety within his room, communication of wants/needs Time Speech Therapy Time In: 08:30 Speech Therapy Time Out: 08:45 Total Billed Time: 15 Billed Treatment Time 1, JOSE L Becerra Feb 13, 2020 14:44
--- NOTE | 2020-02-13 14:47 | Physical Therapy Daily Note ---
PT Daily Note-Current Subjective Pt was in recliner upon arrival and agreed to rx. Pt stated pain on R knee. Pt had issues with STM, he talked with SW prior to tx and couldn't recall what he and SW talked about. Pain Location: Right Location Body Site: Knee Pain Description: Sharp Comment: Pt didn't rate pain out of 10. Mental Status Patient Orientation: Person, Place, Time Transfers SCALE: Activities may be completed with or without assistive devices. 8-Snbycdxkjy-zdfymyc completes the activity by him/herself with no assistance from a helper. 5-Set-up or Clean-up Assistance-helper sets up or cleans up; patient completes activity. [place] assists only prior to or following the activity. 4-Supervision or Touching Assistance-helper provides verbal cues and/or touching/steadying and/or contact guard assistance as patient completes activity. Assistance may be provided throughout the activity or intermittently. 3-Partial/Moderate Assistance-helper does LESS THAN HALF the effort. [place] lifts, holds or supports trunk or limbs, but provides less than half the effort. 2-Substantial/Maximal Assistance-helper does MORE THAN HALF the effort. [place] lifts or holds trunk or limbs and provides more than half the effort. 1-Rqfooeuyl-fvqrmj does ALL the effort. Patient does none of the effort to complete the activity. Or, the assistance of 2 or more helpers is required for the patient to complete the activity. If activity was not attempted, code reason: 7-Patient Refused. 9-Not Applicable-not attempted and the patient did not perform the activity before the current illness, exacerbation or injury. 10-Not Attempted due to Environmental Limitations-(lack of equipment, weather restraints, etc.). 88-Not Attempted due to Medical Conditions or Safety Concerns. Weight Bearing Right Lower Extremity: Right Weight Bearing/Tolerated cam boot on the right side Exercises Seated Therapy Exercises: Ankle pumps, Hip flexion, Kicking activity, Glut set Seated Reps: 15 Treatments Pt performs seated ex in recliner. Pt uses urinal seated after performing exercises. Pt left in recliner with all needs met, call light in hand. Assessment Current Status: Fair Progress Pt becomes distracted easily during exercises, and pt became confused about which exercises we were doing snf through reps. PT Short Term Goals Short Term Goals Time Frame: Feb 19, 2020 Roll Left & Right: 6 Sit to lyin Lying to sitting on side of be: 6 Sit to stand: 3 Chair/bbx-vq-ieqgf transfer: 3 Walk 10 feet: 3 PT Shelter Goals Shelter Goals PT Candles Pourer Goals Time Frame: Mar 04, 2020 Roll Left & Right (QC): 6 Sit to Lying (QC): 6 Lying-Sitting on Side/Bed(QC): 6 Sit to Stand (QC): 4 Chair/Tnn-nn-Lhudc Xfer(QC): 4 Toilet Transfer (QC): 4 Car Transfer (QC): 4 Does the Patient Walk: Yes Walk 10 feet (QC): 4 Walk 50ft with 2 Turns (QC): 4 Walk 150 ft (QC): 88 Walking 10ft on Uneven Surface: 88 1 Step (curb) (QC): 4 4 Steps (QC): 4 12 Steps (QC): 88 Picking up an Object (QC): 88 Wheel 50 feet with 2 turns (QC: 6 Wheel 150 feet: 6 PT Plan Problem List Problem List: Activity Tolerance, Functional Strength, Safety, Balance, Transfer, Bed Mobility, ROM Treatment/Plan Treatment Plan: Continue Plan of Care Treatment Plan: Bed Mobility, Education, Functional Activity Tiff, Functional Strength, Group Therapy, Gait, Safety, Therapeutic Exercise, Transfers Treatment Duration: Mar 04, 2020 Frequency: At least 5 of 7 days/Wk (IRF) Estimated Hrs Per Day: 1.5 hours per day Patient and/or Family Agrees t: Yes Safety Risks/Education Patient Education: Correct Positioning, Safety Issues Teaching Recipient: Patient Teaching Methods: Demonstration, Discussion Response to Teaching: Unable to Return Demonstration, Reinforcement Needed Time/GCodes Time In: 1415 Time Out: 1445 Total Billed Treatment Time: 30 Total Billed Treatment 1, FA (10m), Ex (20m) LEANNE AVALOS SFDC DEVELOPER Feb 13, 2020 14:47
--- NOTE | 2020-02-13 14:54 | NUR ---
"RD ASSESSMENT PMHx: hypercholesterolemia; HTN; dementia; CA(prostate); Current - R fibula fracture PT INTERACTION: Pt was awake and pleasant during nutrition assessment. Note pt has dementia, per chart review. Pt states current appetite is good. Note avg PO intake 75% x3meal, per chart review. Pt states following a regular diet at home, and has no issues with chewing/swallowing food. Pt states no recent issues with nausea, vomiting, constipation, or diarrhea, and that his last BM was 02/12. Note pt currently on bowel regimen of colace BID; senna BID; and miralax BID, per chart review. Pt states no recent wt changes. Note unable to determine recent wt hx, per chart review. ABNORMAL NUTRITION-RELATED LAB VALUES LOW: Na 134; K 3.4; Ca 8.3; Pro 5.9; alb 3.1 HIGH: BUN 22; glu 107 Est. kcal needs: 8616-5109 kcal | 20-25 kcal/kg Est. Pro needs: 88-110 g Pro | 0.8-1.0 g Pro/kg PES STATEMENT: Given current appetite and PO intake, no nutrition diagnosis at this time (NO-1.1) INTERVENTION: Continue with current diet order of Regular diet. Discontinue current supplementation order of Ensure Enlive with meals TID. Pt avg PO intake is 75% of meals. Will continue to follow and reassess as pt needs, intake, and status change. MONITOR/EVALUATE: PO Intake; Plan of Care; Hydration Status; Weight Status; Lab Values Horace Sandy, MS, RD, LD"
[2020-02-13] MEDS ORDERED: ASPI-983 PO (15:07)
[2020-02-13] MEDS ORDERED: CALC300T4 PO (15:07)
--- NOTE | 2020-02-13 16:01 | NUR ---
SPOKE WITH THE PT, WENT THRU THE EXT MED HISTORY AND CALLED [facility] IN [place] TO COMPLETE THE MED REC DONEPEZIL 10MG LAST FILLED 12-04-2019 #30/30DS & PREDNISONE LAST FILLED 09-17-2019 #90/90DS SHOW ONT HE EXT MED HISTORY BUT PT SAYS HE IS NO LONGER TAKING THEM OTC MEDS: ASPIRIN 81 TUMS PRN
--- NOTE | 2020-02-13 16:14 | NUR ---
CM/SS ADMISSION and PATIENT CARE CONFERENCE Patient admitted to ARU 02/12/20 from AV for closed right fibular fracture. Patient reportedly tripped over a shower curtain and fell in his bathroom, injured and lay approximately 12 hours before found by family. Other comorbidities are, in part, nicotine dependence ([place] Burn chew), alcohol abuse, cognitive deficits, physical debility, hx prostate cancer. Patient resides alone since the of his spouse July 2012. 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 Patient described as more of a life long social drinker up to about 1-2 years after spouse passed, then he began to drink more heavily and be more sedentary at home. Dudley reports that all three sons have concerns about patient returning home as before due to his physical impairment now and the cognitive decline plus a reported consumption of 1/2 pint of alcohol daily. PCP: Aidan Luna, [facility]AC[facility]: [facility] INSURANCE: Medicare, [facility] [employer] [facility] Supplement DME: Patient states he has a FWW that his used, has full walk in shower. He is currently in a walking boot for fracture. Will follow patient progress and recommendations from therapy team for assistive devices. BARRIERS TO DISCHARGE PLANNING: Physical and mental status relative to safety at home alone, alcoholism, suspected depression. CONTACTS: Patient has 3 sons, none reside in close proximity. Dudley Russ, Son/DPOA and POA [address] [place] [address] Dudley is eldest and would call patient daily early evening. Franco Russ, Son, Alternate DPOA/POA [place], [place] [phone] Was here visiting patient, spouse's family in [place]. They found patient upon return to his home. Joseluis Russ, Son, Alternate DPOA/POA [place], [place] [phone] Dudley shared that patient's well-being has been a concern and they were planning a family meeting for that didn't happen due to COVID19. They then planned a meeting this weekend during February 15, but now patient is hospitalized. Dudley is exploring [facility] for patient in the [facility] so that he will be in close proximity for support and assistance. Dudley and brothers intend to enforce a move from home via their POA status, patient is not aware of this plan nor would he likely agree to it. Railroad Track Repair Supervisor did mention [facility] to patient as part of discharge planning and he refused. Railroad Track Repair Supervisor offered assistance with any referrals to identified preferred facilities. Dudley indicates patient would be taken from discharge directly to [facility] or would be accompanied by family if at home a brief stopover. Dudley understood the purpose and process of the weekly patient care conference and that patient's next review will be 02/20/20. Patient engaged with justowriter operator during interview and seemed to answer correctly during some conversation. Short term memory impairment noted, within 10 minutes therapy staff updated justowriter operator patient did not remember justowriter operator was just there.
[2020-02-13] MEDS ORDERED: SODIUM CHLORIDE FLUSH 10 ML IV PRN (16:57)
[2020-02-13 17:02] VITALS: BP 122/65
[2020-02-13] MEDS: ENOXAPARIN 40 MG/0.4 ML (LOVENOX) SYR SC SCH (21:16)
[2020-02-14 05:27] VITALS: BP 122/83
[2020-02-14] MEDS: KCL 10 MEQ TAB (MICRO K) PO SCH (06:32)
[2020-02-14] MEDS: MULTIVIT W/MINERALS TAB (THERAGRAN M) PO SCH (06:32)
[2020-02-14] MEDS: THIAMINE 100 MG (VITAMIN B-1) TAB PO SCH (06:32)
--- NOTE | 2020-02-14 06:33 | PM&R Progress Note ---
Subjective HPI/CC On Admission Date Seen by Provider: Feb 14, 2020 Time Seen by Provider: 10:45 Subjective/Events-last exam Had a BM yesterday Ran out of chewing tobacco so he is asking for someone to go get him some Pt likely will leave against medical advice Overall doing okay but complaining of right leg pain Very difficult situation since family has been very concerned about him living on his own so will pursue that from a social work stand point Checked meds and labs Conferred with RN Reviewed therapy notes Review of Systems General: Fatigue Musculoskeletal: leg pain Objective Exam Vital Signs Vital Signs Date Time Temp Pulse Resp B/P (MAP) Pulse Ox O2 Delivery O2 Flow Rate FiO2 02/14/20 16:14 37.1 116 16 119/77 (91) 94 Room Air 02/12/20 15:54 21 Capillary Refill : Less Than 3 SecondsLess Than 3 Seconds General Appearance: No Apparent Distress, WD/WN, Chronically ill HEENT: PERRL/EOMI, Normal ENT Inspection, Pharynx Normal Neck: Full Range of Motion, Normal Inspection, Non Tender, Supple, Carotid Bruit Respiratory: Chest Non Tender, Lungs Clear, Normal Breath Sounds, No Accessory Muscle Use, No Respiratory Distress Cardiovascular: Regular Rate, Rhythm, No Edema, No Gallop, No JVD, No Murmur, Normal Peripheral Pulses Gastrointestinal: Normal Bowel Sounds, No Organomegaly, No Pulsatile Mass, Non Tender, Soft Back: Normal Inspection, No CVA Tenderness, No Vertebral Tenderness Extremity: Normal Capillary Refill, Normal Inspection, Normal Range of Motion (except right leg), Non Tender, No Calf Tenderness, No Pedal Edema Neurologic/Psychiatric: Alert, Oriented x3, No Motor/Sensory Deficits, Normal Mood/Affect, Abnormal Gait, Motor Weakness (right leg) Skin: Normal Color, Warm/Dry Lymphatic: No Adenopathy Results/Procedures Lab Patient resulted labs reviewed. FIM Transfers Therapy Code Descriptions/Definitions Functional Platter Measure: 0=Not Assessed/NA 4=Minimal Assistance 1=Total Assistance 5=Supervision or Setup 2=Maximal Assistance 6=Modified Platter 3=Moderate Assistance 7=Complete IndependenceSCALE: Activities may be completed with or without assistive devices. 0-Smkxxupmlz-dgjhrtu completes the activity by him/herself with no assistance fr om a helper. 5-Set-up or Clean-up Assistance-helper sets up or cleans up; patient completes activity. [employer] assists only prior to or following the activity. 4-Supervision or Touching Assistance-helper provides verbal cues and/or touching/steadying and/or contact guard assistance as patient completes activity. Assistance may be provided throughout the activity or intermittently. 3-Partial/Moderate Assistance-helper does LESS THAN HALF the effort. [employer] lifts, holds or supports trunk or limbs, but provides less than half the effort. 2-Substantial/Maximal Assistance-helper does MORE THAN HALF the effort. [employer] lifts or holds trunk or limbs and provides more than half the effort. 9-Dqtdhvspu-ffxvah does ALL the effort. Patient does none of the effort to complete the activity. Or, the assistance of 2 or more helpers is required for the patient to complete the activity. If activity was not attempted, code reason: 7-Patient Refused. 9-Not Applicable-not attempted and the patient did not perform the activity before the current illness, exacerbation or injury. 10-Not Attempted due to Environmental Limitations-(lack of equipment, weather restraints, etc.). 88-Not Attempted due to Medical Conditions or Safety Concerns. Roll Left to Right (QC): 6 Sit to Lying (QC): 3 Sit to Stand (QC): 2 Chair/Qlm-co-Mqqld Xfer(QC): 2 Car Transfer (QC): 2 Gait Training Does the Patient Walk?: Yes Walk 10 feet (QC): 3 Walk 50 ft with 2 Turns(QC): 88 Walk 150 ft (QC): 88 Walking 10ft/uneven surface-QC: 88 Gait Assistive Device: FWW Wheelchair Training Does the Pt Use a Wheelchair?: Yes Distance: SEE PT GOALS Wheel 50 ft with 2 turns (QC): 5 Wheel 150 ft (QC): 5 Type of Wheelchair: Manual Stair Training 1 Step (curb) (QC): 88 4 Steps (QC): 88 12 Steps (QC): 88 Balance Picking up an Object (QC): 88 ADL-Treatment Eating (QC): 6 Oral Hygiene (QC): 7 Shower/Bathe Self (QC): 3 Upper Body Dressing (QC): 5 Lower Body Dressing (QC): 3 On/Off Footwear (QC): 2 Toileting Hygiene (QC): 1 Assessment/Plan Assessment and Plan Assess & Plan/Chief Complaint Assessment: Right distal fibula fracture Alcoholism Smoker Memory loss HTN HLP Rhabdomyolysis Hypokalemia Plan: IRF protocol Pain meds ETOH w/d protocol HLIVF Replace potassium Patient may very well leave against medical advice (1) Closed right fibular fracture Status: Acute (2) Smoker (3) Alcohol abuse (4) Cognitive deficits (5) Fall Status: Acute (6) Physical debility Status: Acute (7) Cellulitis of groin Status: Acute (8) Prostate cancer Status: Acute KAVON DRIVER DO Feb 14, 2020 06:33
--- NOTE | 2020-02-14 06:33 | Individualized Plan of Care ---
Individualized Plan of Care Rehab Nursing IPOC Order Admission Date Feb 12, 2020 at 12:15 Current Orders Orders Admission Order(Inpt,Obs,Sdc) (02/12/20 10:19) Vital Signs: Per Unit Policy ( 08,16,00 (02/12/20 10:19) Bharat Perkins 09,21 (02/12/20 10:19) Sequential Compression Device Q4H (02/12/20 10:19) Bank Representative-Inpt Rehab Con (02/12/20 10:19) Rehab Nursing Orders-Ipoc (02/12/20 10:19) Physical Therapy Rehab Orders (02/12/20 10:19) Occupational Therapy Rehab Ord (02/12/20 10:19) Speech Therapy Rehab Orders (02/12/20 10:19) Cbc With Automated Diff (02/13/20 06:00) Comprehensive Metabolic Panel (02/13/20 06:00) General/Regular (02/12/20 Dinner) Intake & Output 06,14,22 (02/12/20 10:19) Precautions (Aru) (02/12/20 10:19) Weekly Weight WEEK (02/12/20 10:19) Rehab-Intensity Of Therapy (02/12/20 10:19) Initiate Admission Nursing Pro .admission (02/12/20 10:19) Acetaminophen Tablet (Tylenol Tablet) (02/12/20 10:30) Alprazolam Tablet (Xanax Tablet) (02/12/20 10:30) Calcium Carbonate Chew Tablet (Antacid C (02/12/20 10:30) Diphenhydramine Tablet (Benadryl Tablet) (02/12/20 10:30) Docusate Sodium Capsule (Colace Capsule) (02/12/20 21:00) Docusate Sodium Capsule (Colace Capsule) (02/12/20 10:30) Bisacodyl Suppository (Dulcolax Supposit (02/12/20 10:30) Lactulose Oral Solution (Enulose Oral So (02/12/20 10:30) Na Phos/Na Biphos Enema (Fleet Enema Rivas (02/12/20 10:30) Guaifenesin/Codeine Syrup (Robitussin Ac (02/12/20 10:30) Hydrocodone/Apap 5/325 Tablet (Lortab 5 (02/12/20 10:30) Loperamide Tablet (Imodium Tablet) (02/12/20 10:30) Enoxaparin Injection (Lovenox Injection) (02/12/20 21:00) Melatonin Tablet (Melatonin Tablet) (02/12/20 10:30) Polyethylene Glycol Powder Pkt (Miralax (02/12/20 21:00) Ondansetron Oral Dissolve Tab (Zofran (02/12/20 10:30) Senna S Tablet (Senokot S Tablet) (02/12/20 21:00) Tramadol Tablet (Ultram Tablet) (02/12/20 10:30) Code/Resuscitation (02/12/20 10:19) Initiate Admission Nursing Pro .admission (02/12/20 10:19) Nursing Communication (Order) (02/12/20 10:19) Admission Arrival Bed Request (02/12/20 12:40) Acetaminophen Tablet/Caplet (Tylenol T (02/12/20 13:30) Patient Visit (02/12/20 ) Pt Eval Moderate Complexity (02/12/20 ) Functional Activities, Ea 15 (02/12/20 ) Patient Visit (02/12/20 ) Pt Eval Moderate Complexity (02/12/20 ) Functional Activities, Ea 15 (02/12/20 ) Code/Resuscitation (02/12/20 15:22) Alcohol Xlnllcgnuw-Wnuu-Mi Artem Q1H (02/12/20 15:22) Iv Maintain (Order) (02/12/20 15:22) Iv/Invasive Line Insertion .IV start (02/12/20 15:22) Bharat Hose ,21 (02/12/20 15:22) Ensure Enlive (02/13/20 Breakfast) General/Regular (02/13/20 Breakfast) Acetaminophen Tablet (Tylenol Tablet) (02/12/20 15:30) Lorazepam Tablet (Ativan Tablet) (02/12/20 15:30) D5 1/2 Ns 1000 Ml Iv Solution (Dextrose (02/12/20 15:30) Docusate Sodium Capsule (Colace Capsule) (02/12/20 15:30) Folic Acid Tablet (Folic Acid Tablet) (02/13/20 09:00) Hydrocodone/Apap 5/325 Tablet (Lortab 5 (02/12/20 15:30) Lorazepam Injection (Ativan Injection) (02/12/20 15:30) Loperamide Tablet (Imodium Tablet) (02/12/20 15:30) Enoxaparin Injection (Lovenox Injection) (02/12/20 15:30) Antacid Suspension (Mylanta Suspension (02/12/20 15:30) Magnesium Oxide Tablet (Mag Ox Tablet) (02/12/20 21:00) Melatonin Tablet (Melatonin Tablet) (02/12/20 15:30) Therapeutic Multivitamin Tab (Vitamins, (02/13/20 07:00) Ns Iv 1000 Ml (Sodium Chloride 0.9%) (02/12/20 15:30) Ondansetron Injection (Zofran Injectio (02/12/20 15:30) Ondansetron Oral Dissolve Tab (Zofran (02/12/20 15:30) Senna S Tablet (Senokot S Tablet) (02/12/20 21:00) Thiamine Tablet (Vitamin B-1 Tablet) (02/13/20 07:00) Cefazolin Injection (Ancef Injection) (02/12/20 16:00) Diphenhydramine Tablet (Benadryl Tablet) (02/12/20 15:30) Polyethylene Glycol Powder Pkt (Miralax (02/12/20 21:00) Consult Orthopedic Surgery (02/12/20 15:22) Request Ot Evaluate & Treat (02/12/20 15:22) Bank Representative Consult (02/12/20 15:22) Calcium Carbonate Chew Tablet (Antacid C (02/12/20 15:30) Mat Initiate Protocol (02/12/20 15:54) Albuterol Pre-Mix Nebs (Rt) (Proventil (02/12/20 18:00) Ambulate 08,12,20 (02/12/20 16:22) Sequential Compression Device Q4H (02/12/20 16:22) Dvt/Vte Risk - Notifiy Physici Q4H (02/12/20 16:22) Creatine Kinase (02/13/20 06:00) Potassium Chloride (Tablet) (Klor Con Ta (02/13/20 12:45) Potassium Chloride (Tablet) (Klor Con Ta (02/14/20 07:00) Patient Visit (02/13/20 ) Exercise Therap, Ea 15 Min (02/13/20 ) Wheelchair Mgmt/Propulsn 15min (02/13/20 ) Functional Activities, Ea 15 (02/13/20 ) Cephalexin Capsule (Keflex Capsule) (02/14/20 09:00) Patient Visit (02/13/20 ) Speech Sound Lang Comp (02/13/20 ) Sodium Chloride Flush (Catheter Flush Sy (02/13/20 16:57) Patient Visit (02/13/20 ) Exercise Therap, Ea 15 Min (02/13/20 ) Functional Activities, Ea 15 (02/13/20 ) Patient Visit (02/14/20 ) Gait Training, Ea 15 Min (02/14/20 ) Exercise Therap, Ea 15 Min (02/14/20 ) Functional Activities, Ea 15 (02/14/20 ) Patient Visit (02/14/20 ) Exercise Therap, Ea 15 Min (02/14/20 ) Patient Visit (02/14/20 ) Treat. Speech/Lang/Voice (02/14/20 ) Rehab Nursing Orders: Ongoing Assess. of Cognitive Status, Ongoing Assess. of Function Status, Bladder Management, Bladder Scan, Bladder Training, Bowel Management, Bowel Training, Disease Management & Educaiton, DVT Prophylaxis, Fall Prevention, Fluid/Electrolyte/Nutrition Mgmt, Infection Prevention, Medication Management & Education, Management of Risks & Complications, Management of Skin Intergrity, Nutrition Management, Pain Management, Patient/Family Support, Safety Management Intensity of Therapy to be met Patient to be seen: Min.3h per day/5 of 7d PT IPOC Problem List: Activity Tolerance, Functional Strength, Safety, Balance, Transfer, Bed Mobility, ROM Treatment Plan: Continue Plan of Care Bed Mobility, Education, Functional Activity Tiff, Functional Strength, Group Therapy, Gait, Safety, Therapeutic Exercise, Transfers Treatment Duration: Mar 04, 2020 Frequency: At least 5 of 7 days/Wk (IRF) Estimated Hrs Per Day: 1.5 hours per day OT IPOC Problems: Decreased Activ Tolerance, Decreased UE Strength, Dependent Transfers, Impaired Bed Mobility, Impaired Funct Balance, Impaired I ADL's, Impaired Self-Care Skills OT Treatment, Training and Edu: Yes Plan of Care: ADL Retraining, Caregiver Training, Concurrent Therapy, Functional Mobility, Group Exercise/Act as Ind, UE Funct Exercise/Act, W/C Management Training Treatment Duration: Feb 26, 2020 Frequency: At least 5 of 7 days/Wk (IRF) Estimated Hrs Per Day: 1.5 hours per day [facility] Speech Therapy Treatment Plan: Continue Plan of Care Treatment Duration: Feb 14, 2020 Frequency: 5 times per week Estimated Hrs Per Day: .5 hour per day Bank Representative/Case Mgmt Bank Representative/Case Managemen: Discharge Planning Dietitian/Seat Trimmer Dietitian/Seat Trimmer to monitor nutritional status and make changes and/or recommendations as needed and work with speech pathology on dietary upgrades as the occur. Physician [facility] Medical Issues being managed closely and that require the 24 hour availability of a physician: Recent fall with cellulitis of the groin in the midst of alcohol withdrawal with dementia and tobacco use in need of close monitoring for decompensation Medical Issues: Bowel/Bladder Function, DVT Prophylaxis, Falls Precautions, Fluid/Electrolyte/Nutrition Balance, Infection Protection, Pain Management Brief Synthesis of Preadmission Screen, Post-Admission Evaluation, and Therapy Evaluations: PT OT will focus on regaining strength and ADL independence while preventing falls Medical Prognosis: Good Anticipated Length of Stay: 7 days KAVON DRIVER DO Feb 14, 2020 06:33
[2020-02-14] MEDS: MAGNESIUM OXIDE (MAG-OX)400 MG TAB PO SCH ×2 (08:56→20:30)
[2020-02-14] MEDS: FOLIC ACID 1 MG TAB PO SCH (08:56)
[2020-02-14] MEDS: polyethylene glycoL POWDER 17 GM (MIRALAX) PACK PO SCH ×2 (08:57→20:31)
[2020-02-14] MEDS: DOCUSATE SODIUM 100 MG (COLACE) CAP PO SCH ×2 (08:57→20:30)
[2020-02-14] MEDS: CEPHALEXIN 250 MG (KEFLEX) CAP PO SCH ×3 (08:57→20:31)
[2020-02-14] MEDS: SENNA W/DOCUSATE (SENOKOT S) TABLET PO SCH ×2 (08:58→20:31)
--- NOTE | 2020-02-14 10:05 | Speech Therapy Daily Note ---
Speech Daily Progress Note Subjective Date Seen by Provider: Feb 14, 2020 Time Seen by Provider: 00:30 Patient was resting in his bed following breakfast when I entered his room. Assessment Assessment Current Status: Good Progress Treatment Plan Continue Plan of Care Speech Short Term Goals Short Term Goals Short Term Goals 1) Patient will complete memory tasks related to his daily needs at 90% or greater. 2) Patient will complete problem solving tasks related to his daily needs at 90% or greater. 3) Patient will complete safety awareness tasks related to his daily needs at 90% or greater. Speech Half-Way Goals Automatic Coin Machine Mechanic Goals Patient will improve cognitive communication necessary for safety and daily living tasks with minimal assist. Speech-Plan Patient/Family Goals Patient/Family Goals: Patient plans on returning to his home upon discharge. Treatment Plan Speech Therapy Treatment Plan: Continue Plan of Care Treatment Duration: Feb 22, 2020 Frequency: 5 times per week Estimated Hrs Per Day: .5 hour per day Rehab Potential: Fair Barriers to Learning: recent medical events Pt/Family Agrees to Plan: Yes Safety Risks/Education Teaching Recipient: Patient Teaching Methods: Demonstration, Discussion Response to Teaching: Verbalize Understanding, Return Demonstration Education Topics Provided: Safety within his room and continued communication of wants/needs Time Speech Therapy Time In: 08:30 Speech Therapy Time Out: 09:00 Total Billed Time: 30 Billed Treatment Time 1, JOSE L Peace Feb 14, 2020 10:05
--- NOTE | 2020-02-14 10:17 | Occupational Ther Daily Note ---
OT Current Status-Daily Note Subjective Pt seen in bed this am. Pt agrees to OT/ PT co-treat this am OT ind session: OT/ PT co-treat: Co-treat rendered due to pt's decreased mobility, max A transfers, limited attention and safety awareness, decreased motivation. OT focuses on UE movement/ core/ ADLs while PT focuses on gross motor/ balance/ large motor. Mental Status/Objective Patient Orientation: Person, Place, Time, Situation ADL-Treatment Therapy Code Descriptions/Definitions Functional [place] Measure: 0=Not Assessed/NA 4=Minimal Assistance 1=Total Assistance 5=Supervision or Setup 2=Maximal Assistance 6=Modified [place] 3=Moderate Assistance 7=Complete IndependenceSCALE: Activities may be completed with or without assistive devices. 5-Tjcxksvnng-jwjtzwk completes the activity by him/herself with no assistance from a helper. 5-Set-up or Clean-up Assistance-helper sets up or cleans up; patient completes activity. [place] assists only prior to or following the activity. 4-Supervision or Touching Assistance-helper provides verbal cues and/or touching /steadying and/or contact guard assistance as patient completes activity. Assistance may be provided throughout the activity or intermittently. 3-Partial/Moderate Assistance-helper does LESS THAN HALF the effort. [place] lifts, holds or supports trunk or limbs, but provides less than half the effort. 2-Substantial/Maximal Assistance-helper does MORE THAN HALF the effort. [place] lifts or holds trunk or limbs and provides more than half the effort. 5-Zgmmrurnv-dpntvw does ALL the effort. Patient does none of the effort to complete the activity. Or, the assistance of 2 or more helpers is required for the patient to complete the activity. If activity was not attempted, code reason: 7-Patient Refused. 9-Not Applicable-not attempted and the patient did not perform the activity before the current illness, exacerbation or injury. 10-Not Attempted due to Environmental Limitations-(lack of equipment, weather restraints, etc.). 88-Not Attempted due to Medical Conditions or Safety Concerns. Eating (QC): 6 Oral Hygiene (QC): 7 Bathing Location: L Arm, R Arm, L Upper Leg, R Upper Leg, L Lower Leg (including foot), Chest, Abdomen, Perineal Area Shower/Bathe Self (QC): 3 (min A for RLE foot and bottom. Nursing notified of bottom wound (blood on breif). Bottom completed with TD and sonia cream applied.) Upper Body Dressing (QC): 5 Lower Body Dressing (QC): 3 (min A: pt able to thread BLE onto legs, brings over knees; requires assist to bring up over hips in stance (requires assist of 2 people due to decreased safety awareness and unsafe actions in stance as below). ) On/Off Footwear: 3 (mod A- OT dons boot to R side, pt able to strap all straps this date. Pt requires min A to don sock to LLE. ) Toileting Hygiene (QC): 1 (TD (assist x2 to stand, TD for bottom hygiene)) Toilet Transfer (QC): 2 (max A to stancemin A to sit.) Other Treatment Pt agrees to shower this morning. Pt oriented/ alert. Pt's shower s/u with commode. Pt expresses desire for toileting, given urinal 4x during session for minimal urination. Pt states needs to have BM. Pt able to reach EOB with increased time and limited motivation, encouragement throughout. pt expresses he is tired/ fatigued and cannot shower this morning. Pt educated on need to shower/ sponge bathe. Pt agrees to sponge bath. Pt sit to stand from raised bed with 4WW use and cues for hand placement with mod A x1 person. Pt gets to commode with SBA. Pt unable to toilet after increased time, PT joins during this time. Pt's nurse notified of pt's R buttocks wound. Nursing observes, bottom cleansed and sonia ointment applied. Pt sit to stand from commode with max A x2 persons to 4WW. Pt requires cues for safety in stance as pt keeps head forward and yells "I can't stand up." Pt educated to remain calf and stand with bottom tucked in. Pt requires CGA x1 person to walk to chair. Pt sits with limited control to complete sponge bath. Upon stance, pt requires max A x2 and max cues for safety as pt begins yelling, "I'm going to fall, keep a hold of me, I need to sit." Pt educated to tuck bottom in and keep hands on walker. Pt does so and stands with CGA and ambulates with encouragement to w/c. Sits with max cues for hand and bottom position as pt continues to ask, "Where am I? Where do I need to be?" Pt educated on placing back of legs to w/c again to feel where he needs to be. Pt completes w/c mob to therapy gym and left with PT end of session. Education OT Patient Education: Correct positioning, Modified ADL techniques, Purpose of tx/functional activities, Safety issues, Transfer techniques Teaching Recipient: Patient Teaching Methods: Demonstration, Discussion Response to Teaching: Verbalize Understanding, Return Demonstration, Reinforcement Needed OT Short Term Goals Short Term Goals Time Frame: Feb 19, 2020 Shower/bathe self: 3 Upper body dressin Lower body dressin OT Customer Service Supervisor Goals [facility] Goals Time Frame: Feb 26, 2020 Eating (QC): 6 Oral Hygiene (QC): 6 Toileting Hygiene (QC): 6 Shower/Bathe Self (QC): 6 Upper Body Dressing (QC): 6 Lower Body Dressing (QC): 6 On/Off Footwear (QC): 6 Additional Goals: 1-Demonstrate ADL Tasks, 2-Verbalize Understanding, 3- ImproveStrength/Tiff 1=Demonstrate adherence to instructed precautions during ADL tasks. 2=Patient will verbalize/demonstrate understanding of assistive devices/modifications for ADL. 3=Patient will improve strength/tolerance for activity to enable patient to perform ADL's. OT Education/Plan Problem List/Assessment Assessment: Decreased Activ Tolerance, Decreased UE Strength Discharge Recommendations Plan/Recommendations: Continue POC Therapy Discharge Recommendati: Intermittent Supervision, Meals on Wheels, Home & Family Treatment Plan/Plan of Care Treatment,Training & Education: Yes Patient would benefit from OT for education, treatment and training to promote independence in ADL's, mobility, safety and/or upper extremity function for ADL's. Plan of Care: ADL Retraining, Caregiver Training, Concurrent Therapy, Functional Mobility, Group Exercise/Act as Ind, UE Funct Exercise/Act, W/C Management Training Treatment Duration: Feb 26, 2020 Frequency: At least 5 of 7 days/Wk (IRF) Estimated Hrs Per Day: 1.5 hours per day Agreement: Yes Rehab Potential: Fair Time/GCodes Start Time: 09:00 Stop Time: 10:15 Total Time Billed (hr/min): 75 Billed Treatment Time OT ind session: OT/ PT co-treat: 9220-7022 Co-treat needed due to pt's decreased mobility, dependent transfers, limited attention and safety awareness. OT focuses on UE movement/ core/ ADLs while PT focuses on gross motor/ balance/ large motor. 1, ADL 6 (75) ED LANDEROS OTR Feb 14, 2020 10:17
--- NOTE | 2020-02-14 10:49 | Physical Therapy Daily Note ---
PT Daily Note-Current Subjective Upon arrival to room, pt with OT completing bed bath. Agreeable to PT treatment at this time. Pain Location: Right Location Body Site: Knee Comment: not rated Appearance Following session, pt in chair with LEs elevated. Call light within reach, no further needs at this time. Mental Status Patient Orientation: Person, Situation Transfers SCALE: Activities may be completed with or without assistive devices. 5-Mmkokbjaas-djrtfel completes the activity by him/herself with no assistance from a helper. 5-Set-up or Clean-up Assistance-helper sets up or cleans up; patient completes activity. [place] assists only prior to or following the activity. 4-Supervision or Touching Assistance-helper provides verbal cues and/or touching/steadying and/or contact guard assistance as patient completes activity. Assistance may be provided throughout the activity or intermittently. 3-Partial/Moderate Assistance-helper does LESS THAN HALF the effort. [place] lifts, holds or supports trunk or limbs, but provides less than half the effort. 2-Substantial/Maximal Assistance-helper does MORE THAN HALF the effort. [place] lifts or holds trunk or limbs and provides more than half the effort. 2-Ovbiqeslc-vasxve does ALL the effort. Patient does none of the effort to complete the activity. Or, the assistance of 2 or more helpers is required for the patient to complete the activity. If activity was not attempted, code reason: 7-Patient Refused. 9-Not Applicable-not attempted and the patient did not perform the activity before the current illness, exacerbation or injury. 10-Not Attempted due to Environmental Limitations-(lack of equipment, weather restraints, etc.). 88-Not Attempted due to Medical Conditions or Safety Concerns. Sit to Stand (QC): 2 Chair/Crc-dc-Fpcek Xfer(QC): 3 Pt fluctuates with needed assistance for sit to stand, as he occasionally pushes his hips backwards and doesn't achieve upright posture. Other attempts pt only requires mod A to achieve stand. Pt constantly requiring cues for hand placement with transfers. Weight Bearing Right Lower Extremity: Right Weight Bearing/Tolerated cam boot on the right side Gait Training Does the Patient Walk?: Yes Distance: 150', 10' Walk 10 feet (QC): 3 Walk 50 ft with 2 Turns(QC): 3 Walk 150 ft (QC): 3 Gait Assistive Device: FWW Pt able to complete 150' with FWW with Min A for walker management and safety. Pt had no gross LOB. Noted WBOS and short step length. Wheelchair Training Does the Pt Use a Wheelchair?: Yes Wheel 50 ft with 2 turns (QC): 5 Wheel 150 ft (QC): 5 Type of Wheelchair: Manual Exercises NuStep Minutes: 10 NuStep Workload: 5 Treatments Assisted OT with pt bed bath, dressing and transfers. Pt then propelled wheelchair to therapy gym, completed NuStep L5 x 10 min. Then ambulated to room 150', and returned to chair. Assessment Current Status: Fair Progress Pt continues to have limitations in strength, balance and activity tolerance which impact functional mobility. Will continue to progress treatment as pt tolerates. PT Short Term Goals Short Term Goals Time Frame: Feb 19, 2020 Roll Left & Right: 6 Sit to lyin Lying to sitting on side of be: 6 Sit to stand: 3 Chair/hcw-lj-yywad transfer: 3 Walk 10 feet: 3 PT Group Home Goals Group Home Goals PT Oleo Hasher And Renderer Goals Time Frame: Mar 04, 2020 Roll Left & Right (QC): 6 Sit to Lying (QC): 6 Lying-Sitting on Side/Bed(QC): 6 Sit to Stand (QC): 4 Chair/Mzr-lp-Zjoln Xfer(QC): 4 Toilet Transfer (QC): 4 Car Transfer (QC): 4 Does the Patient Walk: Yes Walk 10 feet (QC): 4 Walk 50ft with 2 Turns (QC): 4 Walk 150 ft (QC): 88 Walking 10ft on Uneven Surface: 88 1 Step (curb) (QC): 4 4 Steps (QC): 4 12 Steps (QC): 88 Picking up an Object (QC): 88 Wheel 50 feet with 2 turns (QC: 6 Wheel 150 feet: 6 PT Plan Problem List Problem List: Activity Tolerance, Functional Strength, Safety, Balance, Gait, Transfer, Bed Mobility Treatment/Plan Treatment Plan: Continue Plan of Care Treatment Plan: Bed Mobility, Education, Functional Activity Tiff, Functional Strength, Group Therapy, Gait, Safety, Therapeutic Exercise, Transfers Treatment Duration: Mar 04, 2020 Frequency: At least 5 of 7 days/Wk (IRF) Estimated Hrs Per Day: 1.5 hours per day Patient and/or Family Agrees t: Yes Safety Risks/Education Patient Education: Gait Training, Transfer Techniques Teaching Recipient: Patient Teaching Methods: Discussion Response to Teaching: Reinforcement Needed Time/GCodes Time In: 935 Time Out: 1045 Total Billed Treatment Time: 70 Total Billed Treatment 1 visit GT x 20 min Ex x 10 min FA x 30 min BERNARD CORTEZ PT Feb 14, 2020 10:49
--- NOTE | 2020-02-14 11:05 | NUR ---
CM/SS CONCURRENT DOCUMENTATION Observed patient this date participating in physical therapy. Verbalized resistance frequently but did end up following through with that session ambulation and exercise goals. Patient does not exhibit the ability to return home alone at this time as earlier noted. Addendum: 02/14/20 at 1343 by URMILA HERNANDEZ SS Visited with son Franco by phone to get address to update face sheet. Franco shared an awareness of patient's lifestyle as far as alcoholism and stated he felt like his dad was depressed and almost like he didn't have the will to live a better life after his mother's . Franco inquired about patient returning home with private pay in-home assistance if he was safe enough to do so. We discussed this at length, concerning that patient would return to his previous habitual lifestyle of alcohol and being sedentary. Final post hospital plan to be determined by patient's recovery, his desires and what he will agree to, and family decision overall as DPOA's. encouraged Franco to talk with Dudley since each have proposed different options, [facility] vs Home with Services. Both Dudley and Franco have selling underwriter's cell number to contact as appropriate.
--- NOTE | 2020-02-14 13:56 | Physical Therapy Daily Note ---
PT Daily Note-Current Subjective Pt presents sitting in chair upon arrival to room, with encouragement agrees to PT treatment. Pt continues to use chewing tobacco after being informed of hospital policy. Appearance Following treatment, pt is sitting up in chair with call light within reach. No further needs at this time. Mental Status Patient Orientation: Person, Place, Situation Transfers SCALE: Activities may be completed with or without assistive devices. 1-Vtculufnnw-fmfgpxb completes the activity by him/herself with no assistance from a helper. 5-Set-up or Clean-up Assistance-helper sets up or cleans up; patient completes activity. [place] assists only prior to or following the activity. 4-Supervision or Touching Assistance-helper provides verbal cues and/or touching/steadying and/or contact guard assistance as patient completes activity. Assistance may be provided throughout the activity or intermittently. 3-Partial/Moderate Assistance-helper does LESS THAN HALF the effort. [place] lifts, holds or supports trunk or limbs, but provides less than half the effort. 2-Substantial/Maximal Assistance-helper does MORE THAN HALF the effort. [place] lifts or holds trunk or limbs and provides more than half the effort. 4-Kcygjyjze-vfbecw does ALL the effort. Patient does none of the effort to complete the activity. Or, the assistance of 2 or more helpers is required for the patient to complete the activity. If activity was not attempted, code reason: 7-Patient Refused. 9-Not Applicable-not attempted and the patient did not perform the activity before the current illness, exacerbation or injury. 10-Not Attempted due to Environmental Limitations-(lack of equipment, weather restraints, etc.). 88-Not Attempted due to Medical Conditions or Safety Concerns. Sit to Stand (QC): 2 Weight Bearing Right Lower Extremity: Right Weight Bearing/Tolerated cam boot on the right side Exercises Seated Therapy Exercises: Sit to stand (x5), Long arc quads, Hip flexion, Hamstring Curls, Hip abd/add, Glut set Seated Reps: 20 With verbal cueing and encouragement, pt completed 5x sit to stand with Max A. Pt able to achieve up right positioning, but refuses to reach forward to walker, due to being "scared of falling." Max A needed due to pt being retropulsive and pushing hips backwards to chair. Treatments Seated LE exercises and Sit-stand Assessment Current Status: Fair Progress Pt continues to require encouragement for all PT participation. Has limitations in strength, balance, and activity tolerance which impact functional mobility. Will continue to progress pt as tolerated. PT Short Term Goals Short Term Goals Time Frame: Feb 19, 2020 Roll Left & Right: 6 Sit to lyin Lying to sitting on side of be: 6 Sit to stand: 3 Chair/dbz-wz-ilpba transfer: 3 Walk 10 feet: 3 PT Life Underwriter Goals Life Underwriter Goals PT Life Underwriter Goals Time Frame: Mar 04, 2020 Roll Left & Right (QC): 6 Sit to Lying (QC): 6 Lying-Sitting on Side/Bed(QC): 6 Sit to Stand (QC): 4 Chair/Cpj-ao-Skmln Xfer(QC): 4 Toilet Transfer (QC): 4 Car Transfer (QC): 4 Does the Patient Walk: Yes Walk 10 feet (QC): 4 Walk 50ft with 2 Turns (QC): 4 Walk 150 ft (QC): 88 Walking 10ft on Uneven Surface: 88 1 Step (curb) (QC): 4 4 Steps (QC): 4 12 Steps (QC): 88 Picking up an Object (QC): 88 Wheel 50 feet with 2 turns (QC: 6 Wheel 150 feet: 6 PT Plan Problem List Problem List: Activity Tolerance, Functional Strength, Safety, Balance, Transfer Treatment/Plan Treatment Plan: Continue Plan of Care Treatment Plan: Bed Mobility, Education, Functional Activity Tiff, Functional Strength, Group Therapy, Gait, Safety, Therapeutic Exercise, Transfers Treatment Duration: Mar 04, 2020 Frequency: At least 5 of 7 days/Wk (IRF) Estimated Hrs Per Day: 1.5 hours per day Patient and/or Family Agrees t: Yes Safety Risks/Education Patient Education: Transfer Techniques, Safety Issues Teaching Recipient: Patient Teaching Methods: Discussion Response to Teaching: Reinforcement Needed Time/GCodes Time In: 1325 Time Out: 1348 Total Billed Treatment Time: 23 Total Billed Treatment 1 visit Ex x 2 - 23 min BERNARD CORTEZ PT Feb 14, 2020 13:56
[2020-02-14 16:14] VITALS: BP 119/77
[2020-02-14] MEDS: ENOXAPARIN 40 MG/0.4 ML (LOVENOX) SYR SC SCH (20:31)
--- NOTE | 2020-02-15 05:21 | NUR ---
pt noncompliant refused to get out of chair et rest in bed, attempts made frequently encouraging him to rest in bed ,pt also refuses to follow hospital policy et chews tobacco in his room.
[2020-02-15 05:24] VITALS: BP 116/86
[2020-02-15] MEDS: THIAMINE 100 MG (VITAMIN B-1) TAB PO SCH (06:11)
[2020-02-15] MEDS: KCL 10 MEQ TAB (MICRO K) PO SCH (06:11)
[2020-02-15] MEDS: MULTIVIT W/MINERALS TAB (THERAGRAN M) PO SCH (06:11)
--- NOTE | 2020-02-15 06:26 | PM&R Progress Note ---
Subjective HPI/CC On Admission Date Seen by Provider: Feb 15, 2020 Time Seen by Provider: 12:15 Subjective/Events-last exam Very noncompliant and unmotivated today Therapy really aggressively tried to get him to participate but he refuses Urinal not provided because he really needs to get up and go to the bathroom and use the commode to urinate Completing Keflex antibiotic for groin cellulitis Overall very difficult to motivate and likely that has a lot to do with his dementia and cognitive deficit of slum score of 20 with behaviors May need to go to senior behavioral unit prior to half-way or assisted living Checked meds and labs Conferred with RN Reviewed therapy notes Review of Systems General: Fatigue Pulmonary: Dyspnea Musculoskeletal: leg pain Objective Exam Vital Signs Vital Signs Date Time Temp Pulse Resp B/P (MAP) Pulse Ox O2 Delivery O2 Flow Rate FiO2 02/15/20 10:09 97 Room Air 02/15/20 10:09 36.8 103 21 02/15/20 05:24 16 116/86 (96) Capillary Refill : Less Than 3 SecondsLess Than 3 Seconds General Appearance: No Apparent Distress, WD/WN, Chronically ill HEENT: PERRL/EOMI, Normal ENT Inspection, Pharynx Normal Neck: Full Range of Motion, Normal Inspection, Non Tender, Supple, Carotid Brui t Respiratory: Chest Non Tender, Lungs Clear, Normal Breath Sounds, No Accessory Muscle Use, No Respiratory Distress Cardiovascular: Regular Rate, Rhythm, No Edema, No Gallop, No JVD, No Murmur, Normal Peripheral Pulses Gastrointestinal: Normal Bowel Sounds, No Organomegaly, No Pulsatile Mass, Non Tender, Soft Back: Normal Inspection, No CVA Tenderness, No Vertebral Tenderness Extremity: Normal Capillary Refill, Normal Inspection, Normal Range of Motion (except right leg), Non Tender, No Calf Tenderness, No Pedal Edema Neurologic/Psychiatric: Alert, Oriented x3, No Motor/Sensory Deficits, Normal Mood/Affect, Abnormal Gait, Motor Weakness (right leg) Skin: Normal Color, Warm/Dry Lymphatic: No Adenopathy Results/Procedures Lab Patient resulted labs reviewed. FIM Transfers Therapy Code Descriptions/Definitions Functional [place] Measure: 0=Not Assessed/NA 4=Minimal Assistance 1=Total Assistance 5=Supervision or Setup 2=Maximal Assistance 6=Modified [place] 3=Moderate Assistance 7=Complete IndependenceSCALE: Activities may be completed with or without assistive devices. 1-Mbucowstqx-twqtpbe completes the activity by him/herself with no assistance from a helper. 5-Set-up or Clean-up Assistance-helper sets up or cleans up; patient completes activity. [place] assists only prior to or following the activity. 4-Supervision or Touching Assistance-helper provides verbal cues and/or touching/steadying and/or contact guard assistance as patient completes activity. Assistance may be provided throughout the activity or intermittently. 3-Partial/Moderate Assistance-helper does LESS THAN HALF the effort. [place] lifts, holds or supports trunk or limbs, but provides less than half the effort. 2-Substantial/Maximal Assistance-helper does MORE THAN HALF the effort. [place] lifts or holds trunk or limbs and provides more than half the effort. 7-Xmxucsbak-edulge does ALL the effort. Patient does none of the effort to complete the activity. Or, the assistance of 2 or more helpers is required for the patient to complete the activity. If activity was not attempted, code reason: 7-Patient Refused. 9-Not Applicable-not attempted and the patient did not perform the activity before the current illness, exacerbation or injury. 10-Not Attempted due to Environmental Limitations-(lack of equipment, weather restraints, etc.). 88-Not Attempted due to Medical Conditions or Safety Concerns. Roll Left to Right (QC): 6 Sit to Lying (QC): 3 Sit to Stand (QC): 2 Chair/Ypo-uv-Kpqpr Xfer(QC): 3 Car Transfer (QC): 2 Gait Training Does the Patient Walk?: Yes Distance: 150', 10' Walk 10 feet (QC): 3 Walk 50 ft with 2 Turns(QC): 3 Walk 150 ft (QC): 3 Walking 10ft/uneven surface-QC: 88 Gait Assistive Device: FWW Wheelchair Training Does the Pt Use a Wheelchair?: Yes Distance: SEE PT GOALS Wheel 50 ft with 2 turns (QC): 5 Wheel 150 ft (QC): 5 Type of Wheelchair: Manual Stair Training 1 Step (curb) (QC): 88 4 Steps (QC): 88 12 Steps (QC): 88 Balance Picking up an Object (QC): 88 ADL-Treatment Eating (QC): 6 Oral Hygiene (QC): 7 Bathing Location: L Arm, R Arm, L Upper Leg, R Upper Leg, L Lower Leg (including foot), Chest, Abdomen, Perineal Area Shower/Bathe Self (QC): 3 (min A for RLE foot and bottom. Nursing notified of bottom wound (blood on breif). Bottom completed with TD and sonia cream applied.) Upper Body Dressing (QC): 5 Lower Body Dressing (QC): 3 (min A: pt able to thread BLE onto legs, brings over knees; requires assist to bring up over hips in stance (requires assist of 2 people due to decreased safety awareness and unsafe actions in stance as below). ) On/Off Footwear (QC): 3 (mod A- OT dons boot to R side, pt able to strap all straps this date. Pt requires min A to don sock to LLE. ) Toileting Hygiene (QC): 1 (TD (assist x2 to stand, TD for bottom hygiene)) Toilet Transfer (QC): 2 (max A to stancemin A to sit.) Assessment/Plan Assessment and Plan Assess & Plan/Chief Complaint Assessment: Right distal fibula fracture Alcoholism Smoker Memory loss HTN HLP Rhabdomyolysis Hypokalemia Plan: IRF protocol Pain meds ETOH w/d protocol HLIVF Replace potassium Patient may very well leave against medical advice (1) Closed right fibular fracture Status: Acute (2) Smoker (3) Alcohol abuse (4) Cognitive deficits (5) Fall Status: Acute (6) Physical debility Status: Acute (7) Cellulitis of groin Status: Acute (8) Prostate cancer Status: Acute KAVON DRIVER DO Feb 15, 2020 06:26
[2020-02-15] MEDS: MAGNESIUM OXIDE (MAG-OX)400 MG TAB PO SCH ×2 (08:35→21:51)
[2020-02-15] MEDS: DOCUSATE SODIUM 100 MG (COLACE) CAP PO SCH ×2 (08:35→21:52)
[2020-02-15] MEDS: FOLIC ACID 1 MG TAB PO SCH (08:35)
[2020-02-15] MEDS: SENNA W/DOCUSATE (SENOKOT S) TABLET PO SCH ×2 (08:36→21:52)
[2020-02-15] MEDS: CEPHALEXIN 250 MG (KEFLEX) CAP PO SCH ×3 (08:36→21:53)
--- NOTE | 2020-02-15 09:43 | Occupational Ther Daily Note ---
OT Current Status-Daily Note Subjective Pt seen in recliner chair, LE's elevated. Pt's eyes partly open, does not respond upon OT entry. Pt encouraged to open eyes, pt responds with actions and words. Pt states he doesn't feel like getting up, states he "pooped and now I'm tired." Pt does not c/o pain but as OT removes pillow from under leg (with pt completing straight leg hip flexion) pt yells out. ADL-Treatment Therapy Code Descriptions/Definitions Functional [place] Measure: 0=Not Assessed/NA 4=Minimal Assistance 1=Total Assistance 5=Supervision or Setup 2=Maximal Assistance 6=Modified [place] 3=Moderate Assistance 7=Complete IndependenceSCALE: Activities may be completed with or without assistive devices. 9-Fmeiohutgo-sqpryjp completes the activity by him/herself with no assistance from a helper. 5-Set-up or Clean-up Assistance-helper sets up or cleans up; patient completes activity. [place] assists only prior to or following the activity. 4-Supervision or Touching Assistance-helper provides verbal cues and/or touching/steadying and/or contact guard assistance as patient completes activity. Assistance may be provided throughout the activity or intermittently. 3-Partial/Moderate Assistance-helper does LESS THAN HALF the effort. [place] lifts, holds or supports trunk or limbs, but provides less than half the effort. 2-Substantial/Maximal Assistance-helper does MORE THAN HALF the effort. [place] lifts or holds trunk or limbs and provides more than half the effort. 6-Ezrpyneev-vunbih does ALL the effort. Patient does none of the effort to complete the activity. Or, the assistance of 2 or more helpers is required for the patient to complete the activity. If activity was not attempted, code reason: 7-Patient Refused. 9-Not Applicable-not attempted and the patient did not perform the activity before the current illness, exacerbation or injury. 10-Not Attempted due to Environmental Limitations-(lack of equipment, weather restraints, etc.). 88-Not Attempted due to Medical Conditions or Safety Concerns. Other Treatment Pt encouraged to sit upright to start waking up, pillow removed from under legs. Pt encouraged to lower LE's down from elevated position, pt declines. OT attempts to pull lever for pt, pt yells out. Pt states he is "not ready yet." Pt states "just put my blanket on, I'm cold." Pt encouraged to move to create internal heat, pt declines, stating, "Just put my blanket back on me." Pt's R eye shut and L half open, OT asks if is eyes are feeling okay, pt states, "They're not working together." Pt completes eye tracking in all planes with delay, but good coordination of eyes together. Pt educated on pt's agreement to full shower on this date. Pt states, "how about tomorrow?" Pt encouraged to complete today. Pt declines. Pt educated on completing ther ex or fx mob in gym. Pt states he does not feel well and maybe tomorrow. Pt encouraged to show OT ability to complete tasks with IND so that we can ensure he is able to take care of himself at home. Pt states, "Let me rest, I need to get stronger," pt educated on atrophy during inactivity and that he is at rehab to participate to get stronger. Pt does not respond. Pt given theraband to complete UE movement/ warm ups while OT gathers clothing from washer/ dryer. Upon re-entry, pt's eyes slightly closed and mouth open and pt's theraband placed on lap where OT left it. Pt states he does not want to do anything and requests blanket to be put back on. Pt's blanket placed on lap/ across legs, pt's legs continue to be elevated with call light in reach, all needs met. OT to attempt again later due to pt's refusal. Education OT Patient Education: Purpose of tx/functional activities, Rehab process, Safety issues Teaching Recipient: Patient Teaching Methods: Discussion Response to Teaching: Unable to Return Demonstration, Reinforcement Needed OT Short Term Goals Short Term Goals Time Frame: Feb 19, 2020 Shower/bathe self: 3 Upper body dressin Lower body dressin OT Intermediate Goals Intermediate Goals Time Frame: Feb 26, 2020 Eating (QC): 6 Oral Hygiene (QC): 6 Toileting Hygiene (QC): 6 Shower/Bathe Self (QC): 6 Upper Body Dressing (QC): 6 Lower Body Dressing (QC): 6 On/Off Footwear (QC): 6 Additional Goals: 1-Demonstrate ADL Tasks, 2-Verbalize Understanding, 3- ImproveStrength/Tiff 1=Demonstrate adherence to instructed precautions during ADL tasks. 2=Patient will verbalize/demonstrate understanding of assistive devices/modifications for ADL. 3=Patient will improve strength/tolerance for activity to enable patient to perform ADL's. OT Education/Plan Problem List/Assessment Assessment: Decreased Activ Tolerance, Decreased Safety Aware, Dependent Transfers, Impaired Cognition, Impaired Funct Balance, Impaired I ADL's, Impaired Self-Care Skills Discharge Recommendations Plan/Recommendations: Continue POC Therapy Discharge Recommendati: 24 Hour Supervision Treatment Plan/Plan of Care Treatment,Training & Education: Yes Patient would benefit from OT for education, treatment and training to promote independence in ADL's, mobility, safety and/or upper extremity function for ADL's. Plan of Care: ADL Retraining, Caregiver Training, Concurrent Therapy, Functional Mobility, Group Exercise/Act as Ind, UE Funct Exercise/Act, W/C Management Training Treatment Duration: Feb 26, 2020 Frequency: At least 5 of 7 days/Wk (IRF) Estimated Hrs Per Day: 1.5 hours per day Agreement: Yes Rehab Potential: Fair Time/GCodes Start Time: 09:00 Stop Time: 09:20 Total Time Billed (hr/min): 20 Billed Treatment Time 1, ADL (20) ED LANDEROS OTR Feb 15, 2020 09:42
[2020-02-15] MEDS: polyethylene glycoL POWDER 17 GM (MIRALAX) PACK PO SCH ×2 (09:59→22:12)
[2020-02-15 10:09] VITALS: BP 116/86
--- NOTE | 2020-02-15 11:20 | Speech Therapy Daily Note ---
Speech Daily Progress Note Subjective Date Seen by Provider: Feb 15, 2020 Time Seen by Provider: 00:30 Patient resting in his recliner when I entered his room. He required frequent encouragement to participate. Objective Patient completed a series of problem solving scenarios for safety with daily needs upon his return home with 85% given minimal cues. Assessment Assessment Current Status: Good Progress Treatment Plan Continue Plan of Care Speech Short Term Goals Short Term Goals Short Term Goals 1) Patient will complete memory tasks related to his daily needs at 90% or gr eater. 2) Patient will complete problem solving tasks related to his daily needs at 90% or greater. 3) Patient will complete safety awareness tasks related to his daily needs at 90% or greater. Speech Door Closer Goals Door Closer Goals Patient will improve cognitive communication necessary for safety and daily living tasks with minimal assist. Speech-Plan Patient/Family Goals Patient/Family Goals: Patient plans on returning to his home upon rehab discharge. Treatment Plan Speech Therapy Treatment Plan: Continue Plan of Care Treatment Duration: Feb 14, 2020 Frequency: 5 times per week Estimated Hrs Per Day: .5 hour per day Rehab Potential: Fair Barriers to Learning: Patient's poor willingness to participate in therapies Pt/Family Agrees to Plan: Yes Safety Risks/Education Teaching Recipient: Patient Teaching Methods: Demonstration, Discussion Response to Teaching: Verbalize Understanding, Return Demonstration Education Topics Provided: Continued safety upon his return home Time Speech Therapy Time In: 10:00 Speech Therapy Time Out: 10:30 Total Billed Time: 30 Billed Treatment Time 1[address]I [address] Feb 15, 2020 11:20
--- NOTE | 2020-02-15 12:59 | Physical Therapy Daily Note ---
PT Daily Note-Current Subjective Pt sitting up in bed upon arrival to room. Pt states that he is "too tired" to work with therapy at this time, with much encouragement pt agrees to seated LE exercises Appearance Following session, pt seated in chair with call light in lap and tray within reach. Doctor at bedside following session. Mental Status Patient Orientation: Confused, Situation Transfers SCALE: Activities may be completed with or without assistive devices. 3-Smttyykjxd-xamhyzr completes the activity by him/herself with no assistance from a helper. 5-Set-up or Clean-up Assistance-helper sets up or cleans up; patient completes activity. [place] assists only prior to or following the activity. 4-Supervision or Touching Assistance-helper provides verbal cues and/or touching/steadying and/or contact guard assistance as patient completes activity. Assistance may be provided throughout the activity or intermittently. 3-Partial/Moderate Assistance-helper does LESS THAN HALF the effort. [place] lifts, holds or supports trunk or limbs, but provides less than half the effort. 2-Substantial/Maximal Assistance-helper does MORE THAN HALF the effort. [place] lifts or holds trunk or limbs and provides more than half the effort. 1-Wyzdytkkr-wyrvdc does ALL the effort. Patient does none of the effort to complete the activity. Or, the assistance of 2 or more helpers is required for the patient to complete the activity. If activity was not attempted, code reason: 7-Patient Refused. 9-Not Applicable-not attempted and the patient did not perform the activity before the current illness, exacerbation or injury. 10-Not Attempted due to Environmental Limitations-(lack of equipment, weather restraints, etc.). 88-Not Attempted due to Medical Conditions or Safety Concerns. Sit to Stand (QC): 2 Pt stood at chair x 3 min, to achieve stand, Max A x 2 due to pt flailing arms and refusing to pull hips under shoulders to achieve upright position. Pt educated on importance of safety and to not flail arms when standing but instead grab on to walker when he begins to feel unsteady. Pt states that "he cannot" Weight Bearing Right Lower Extremity: Right Weight Bearing/Tolerated cam boot on the right side Exercises Seated Therapy Exercises: Long arc quads, Hip flexion, Hamstring Curls, Hip abd/add Seated Reps: 20 Treatments Pt completed seated LE exercises with encouragement, but completed all reps without refusal. However, OT came in to [facility] at 1125, due to pts decreased safety awareness, need for two skilled clinicians to ensure safety with functional mobility and transfers. When OT & PT encourage pt to stand at seat and begin gait training, pt adamantly refuses stating that "its Tuesday, and we all need an early weekend to rest". Pt educated that he needs to increase mobility to ensure for safety upon dc from hospital, as he hasn't been mobile over the past few days due to poor compliance. Pt states that he needed to use the restroom and then he would participate in therapy, but would only agree to urinal use at chair and for PT/OT to leave the room. PT/OT agree and step out for pt to complete task, upon reentry to the room after a few minutes, pt had e levated his LEs and refused to lower them to stand and begin gait training. Pt continuously states "I need to rest" and "I will try harder tomorrow". Eventually pt agrees to stand at chair 2x, with Max A x2, pt performs sit to stand while flailing his arms and refusing to grab walker stating "I am falling". Pt eventually grabs walker and stands with Min A x1 and is able to complete reaching activities behind his back to mimic pulling up pants x 3 each arm, pt stood for 3 minutes. Then pt states he is fatigued and needs to sit down. Pt then states he is "too tired" to attempt to stand again, even with maximal encouragement from both PT & OT. Pt left in chair with call light and doctor present at bedside. Pt also continues to use chewing tobacco despite multiple reminders of hospital policy. Assessment Pt is capable of activities; however, he is refusing to actively participate in therapy activities. Will continue to progress pt, as pt participates and tolerates therapy. PT Short Term Goals Short Term Goals Time Frame: Feb 19, 2020 Roll Left & Right: 6 Sit to lyin Lying to sitting on side of be: 6 Sit to stand: 3 Chair/uzi-nb-geqmf transfer: 3 Walk 10 feet: 3 PT [facility] Goals Tallow Refiner Goals PT Tallow Refiner Goals Time Frame: Mar 04, 2020 Roll Left & Right (QC): 6 Sit to Lying (QC): 6 Lying-Sitting on Side/Bed(QC): 6 Sit to Stand (QC): 4 Chair/Mco-vy-Rwxdn Xfer(QC): 4 Toilet Transfer (QC): 4 Car Transfer (QC): 4 Does the Patient Walk: Yes Walk 10 feet (QC): 4 Walk 50ft with 2 Turns (QC): 4 Walk 150 ft (QC): 88 Walking 10ft on Uneven Surface: 88 1 Step (curb) (QC): 4 4 Steps (QC): 4 12 Steps (QC): 88 Picking up an Object (QC): 88 Wheel 50 feet with 2 turns (QC: 6 Wheel 150 feet: 6 PT Plan Problem List Problem List: Activity Tolerance, Functional Strength, Safety, Balance, Gait, Transfer Treatment/Plan Treatment Plan: Continue Plan of Care Treatment Plan: Bed Mobility, Education, Functional Activity Tiff, Functional Strength, Group Therapy, Gait, Safety, Therapeutic Exercise, Transfers Treatment Duration: Mar 04, 2020 Frequency: At least 5 of 7 days/Wk (IRF) Estimated Hrs Per Day: 1.5 hours per day Patient and/or Family Agrees t: Yes Safety Risks/Education Patient Education: Transfer Techniques, Safety Issues Teaching Recipient: Patient Teaching Methods: Discussion Response to Teaching: Reinforcement Needed Time/GCodes Time In: 1105 Time Out: 1210 Total Billed Treatment 1 visit Ex -20 min FA x 3 - 45 min PT treatment [id number] (20) PT/OT cotreatment [id number] (45) BERNARD OCRTEZ PT Feb 15, 2020 12:59
--- NOTE | 2020-02-15 13:13 | Occupational Ther Daily Note ---
OT Current Status-Daily Note Subjective OT individual tx session: [id number]; Pt seen again this am. Pt's head again rested backward upon entry, words sluggish. States he is very tired. Pt encouraged to participate. Pt reluctantly agrees to UE theraband ex. Co-treat from [id number]: Co-tx rendered due to pt's decreased safety awareness, dependent transfers; OT focuses on ADLs/ UE movement, attention to tasks; while PT focuses on gross motor, LE movement and transfers. Pt seen with PT. Pt remains sitting in chair upon entry. Pt does not c/o pain, though yells with movement. ADL-Treatment Therapy Code Descriptions/Definitions Functional [place] Measure: 0=Not Assessed/NA 4=Minimal Assistance 1=Total Assistance 5=Supervision or Setup 2=Maximal Assistance 6=Modified [place] 3=Moderate Assistance 7=Complete IndependenceSCALE: Activities may be completed with or without assistive devices. 3-Bqbgrmcqfj-efjovou completes the activity by him/herself with no assistance from a helper. 5-Set-up or Clean-up Assistance-helper sets up or cleans up; patient completes activity. [place] assists only prior to or following the activity. 4-Supervision or Touching Assistance-helper provides verbal cues and/or touching/steadying and/or contact guard assistance as patient completes activity. Assistance may be provided throughout the activity or intermittently. 3-Partial/Moderate Assistance-helper does LESS THAN HALF the effort. [place] lifts, holds or supports trunk or limbs, but provides less than half the effort. 2-Substantial/Maximal Assistance-helper does MORE THAN HALF the effort. [place] lifts or holds trunk or limbs and provides more than half the effort. 4-Fdfnfnnyv-lozqgi does ALL the effort. Patient does none of the effort to complete the activity. Or, the assistance of 2 or more helpers is required for the patient to complete the activity. If activity was not attempted, code reason: 7-Patient Refused. 9-Not Applicable-not attempted and the patient did not perform the activity before the current illness, exacerbation or injury. 10-Not Attempted due to Environmental Limitations-(lack of equipment, weather restraints, etc.). 88-Not Attempted due to Medical Conditions or Safety Concerns. Eating (QC): 6 (requests water. Pt drinks with IND.) Other Treatment [id number] (30) OT individual session: Pt given muliple options for therapy session. Pt reluctantly agrees to theraband ex. Pt encouraged to choose which exercise to complete first. Pt's eyes closed as he completes minimal ROM exercises. Pt encouraged to open eyes, lights turned on, and pt opens eyes to complete 1 ex to minimal range. Pt encouraged to complete to full range to maximize movement/ strengthening. Pt continues to complete exercises wihtout full resistance. Pt encouraged to complete ex from HEP. Pt chooses first ex, scaption. Pt states, "I don't know how to do that." Pt given instruction/ demonstration. Pt laughs. Pt states "What now?" Pt shown and given vc for instruction. Pt laughs. Eyes open. Pt begins exercises with minimal eyes open. Pt's phone rings. Pt yells and body jerks in reaction. Pt states, "What is that?" Pt educated on his phone ringing; pt picks up cell phone and opens/ brings to face/ says "hello?" Pt educated it is hospital phone. Pt reaches across body with R hand to answer phone call; pt given 2 min for phone call with instruction that OT will return in 2 minutes. Pt has fluid conversation on phone without slow verbage or confusion. Pt appropriate throughout phone call. Upon pt stating goodbye's, OT reenters. Pt encouraged to work on core and bring legs down from elevated position; pt denies stating he wants to lay back; pt encouraged to sit upright to work a bit more. Pt states, "I can't reach the lever," with R hand. Pt's blankets removed and lever assisted by OT. Pt yells as legs lowered. Pt completes ther ex with eyes open/ no cues for attention as OT/ pt converse. Completes ~15 reps bilaterally of 3 UE ex to encourage strength/ endurance. Pt requests urinal. OT states unsure of where placed and can use toilet. Pt denies, stating he needs urinal. OT/ pt look for urinal, unable to locate. Pt instructed that urinal on trash can placed beside him; pt states, "You were hiding it from me," pt educated that it was on trash can upon entry as OT could not locate. Pt states he is unable to reach to gather urinal placed ~2 feet from pt on R side. Trash can scooted ~1 foot from pt, pt is encouraged to take it. Pt rolls eyes. Pt educated that OT/ PT will co-treat to work on higher level functional mobility in ~10 min. Pt given 2 options to sit in w/c to go to gym or stand and walk there. Pt states, "Neither, I'm tired honey, I don't want to." Pt encouraged to participate, pt states, "I need a break." Pt educated on PT entry soon, but will give him ~2 min break. Pt agrees, all needs met, call light in reach, urinal in hand. [id number] (35): OT/ PT co-treat:Co-tx rendered due to pt's decreased safety awareness, dependent transfers; OT focuses on ADLs/ UE movement, attention to tasks; while PT focuses on gross motor, LE movement and transfers. Pt seen in chair with LE on floor. Pt expresses he does not desire to stand or complete ther ex. Pt educated throughout that if going home he needs to strengthen. Pt nods, though states, "It's Tuesday, we need an early weekend." Pt encouraged to participate, especially when fatigued to increase endurance. Pt denies, states, "I just want to sleep." Pt educated that he had slept throughout the morning, pt nods, states he needs to urinate. Pt given urinal. OT/ PT turn backs to attempt privacy as pt attempts urination. No urination completed within 2 min of urinal placement. Pt is asked if done/ able to complete, pt states, "Well maybe if I didn't have two women staring at me I could go." OT/ PT step out of room. Upon re-entry, pt's LE's elevated from lever on R side of pt's chair. Pt asked why LE's placed up. Pt states, "For circulation," pt educated on increase of circulation while up/ moving/ walking. Pt rolls eyes once more. Pt encouraged to bring LE's down to attempt standing/ higher level activity. Pt denies, stating, "I am tired. I'll do it tomorrow." Pt educated on scheduled time and therapy will work with pt to ensure safe return home. Pt denies, begins moving LEs (toes/ L ankle). Pt redirected to preferred conversation topics. Pt educated on food coming in ~15 min and to bring feet down. Pt able to bring feet down by pus constance lever to R side of pt successfully. Pt encouraged to complete standing; pt denies, stating, "I've told you I am tired." Pt encouraged with max encouragement as pt has been up 2x throughout day. Pt rolls eyes intermittently through conversation. Pt agrees. Stands by placing BUE to arm rests and pushing self up and max Ax2; pt flails R arm and grabs OT while stabilizing self with L hand. Pt flexed from hips and head forward as R arm flailing. Pt yells, "I'm going to fall! Get me, get me." R UE guiding with physical assist to walker and pt instructed to stand upright, Pt stands with max Ax2. Stands for 3 min with SBA-CGA. pt instructed to complete visual imagery prior to stance; pt educated that flailing is not safe and is at risk for fall when complete without confidence. Pt educated that OT/ PT work together for this reason and that therapy is here to ensure safety during tasks that need to be completed at home. Throughout pt states, "I want to sit." Pt encouraged to stand, completes 5 rounds of R/L UE movement while opposite UE stabilized on walker. Pt brings one hand at a time to back, to bottom, and reaches to side of pt while receiving CGA and no LOB. Nursing comes in at this time, stating pt got up with CGA and ambulated to chair with SBA. Pt encouraged to get out of head and to continue making progress/ gaining confidence. Pt educated on benefits of stance and good ability. Pt encouraged by PT to complete 2 steps. Pt reluctantly declines, stating, "I want to sit down." Pt sits without good control. Pt encouraged by PT to complete an additional stance and take safety cues from therapy this time. Pt denies; pt questioned why he was able to stand so easily this am to take BM and get to chair with confidence/ control. Pt states that when he has a reason to get up, he will get up. Pt then requests urinal. Pt educated on the benefits of this need, as pt can utilize his urination need to be able to motivate himself to get up and go to commode. Pt states he wants his urinal and that he has to pee. Pt's commode placed to the side of chair. Pt states, "I want my feet up." Pt questioned if he needed to pee, pt denies. Pt's LE's elevated by pt, all needs met, call light in reach. OT talks with nursing staff who agrees pt is physically capable and was safe to transfer to commode this morning. Pt educated on this fact and that if he needs to get up to urinate press call light. DO enters. Education OT Patient Education: Correct positioning, Exercise program, Home exercise program, Purpose of tx/functional activities, Safety issues, Transfer techniques Teaching Recipient: Patient Teaching Methods: Demonstration, Handout, Discussion Response to Teaching: Verbalize Understanding, Unable to Return Demonstration, Return Demonstration, Unable to Comprehend, Reinforcement Needed OT Short Term Goals Short Term Goals Time Frame: Feb 19, 2020 Shower/bathe self: 3 Upper body dressin Lower body dressin OT Half-Way Goals Half-Way Goals Time Frame: Feb 26, 2020 Eating (QC): 6 Oral Hygiene (QC): 6 Toileting Hygiene (QC): 6 Shower/Bathe Self (QC): 6 Upper Body Dressing (QC): 6 Lower Body Dressing (QC): 6 On/Off Footwear (QC): 6 Additional Goals: 1-Demonstrate ADL Tasks, 2-Verbalize Understanding, 3- ImproveStrength/Tiff 1=Demonstrate adherence to instructed precautions during ADL tasks. 2=Patient will verbalize/demonstrate understanding of assistive device s/modifications for ADL. 3=Patient will improve strength/tolerance for activity to enable patient to perform ADL's. OT Education/Plan Problem List/Assessment Assessment: Decreased Activ Tolerance, Decreased Safety Aware, Dependent Transfers, Impaired Funct Balance, Impaired I ADL's, Impaired Self-Care Skills Discharge Recommendations Plan/Recommendations: Continue POC Therapy Discharge Recommendati: 24 Hour Supervision Treatment Plan/Plan of Care Treatment,Training & Education: Yes Patient would benefit from OT for education, treatment and training to promote independence in ADL's, mobility, safety and/or upper extremity function for ADL's. Plan of Care: ADL Retraining, Caregiver Training, Concurrent Therapy, Functional Mobility, Group Exercise/Act as Ind, UE Funct Exercise/Act, W/C Management Training Treatment Duration: Feb 26, 2020 Frequency: At least 5 of 7 days/Wk (IRF) Estimated Hrs Per Day: 1.5 hours per day Agreement: Yes Rehab Potential: Fair Time/GCodes Start Time: 10:40 (1125) Stop Time: 11:10 (1200) Total Time Billed (hr/min): 65 Billed Treatment Time 0210-4571 (30): 1, EX 2 (30) [id number] (35): Co-tx rendered due to pt's decreased safety awareness, dependent transfers; OT focuses on ADLs/ UE movement, attention to tasks; while PT focuses on gross motor, LE movement and transfers. 1, ADL 2 (35) Total: 65 ED LANDEROS OTR Feb 15, 2020 13:13
[2020-02-15 16:27] VITALS: BP 122/75
[2020-02-15] MEDS ORDERED: HYDROCORTISONE 2.5% CREAM (ANUSOL-HC) 30 GM TOP PRN (17:15)
[2020-02-15] MEDS: HYDROcodone/APAP 5 MG/325 MG (LORTAB) TAB PO PRN (21:52)
[2020-02-15] MEDS: ENOXAPARIN 40 MG/0.4 ML (LOVENOX) SYR SC SCH (21:53)
--- NOTE | 2020-02-16 05:55 | NUR ---
PATIENT HAS BEEN NON-COMPLIANT WITH TOBACCO POLICY AND CONTINUES TO CHEW TOBACCO IN HIS ROOM. PATIENT ALSO REFUSES TO GET OUT OF RECLINER OR TO BE REPOSITIONED. THIS NURSE DISCUSSED WITH PATIENT SEVERAL TIMES THE CONCERNS WITH SKIN BREAKDOWN. PATIENT STATES HE UNDERSTANDS, BUT WILL NOT COMPLY.
--- NOTE | 2020-02-16 05:56 | PM&R Progress Note ---
Subjective HPI/CC On Admission Date Seen by Provider: Feb 16, 2020 Time Seen by Provider: 06:00 Subjective/Events-last exam Very noncompliant and unmotivated and refuses to get out of recliner Therapy really aggressively tried to get him to participate yesterday but he refuses Urinal not provided because he really needs to get up and go to the bathroom and use the commode to urinate and he is still upset about this Completed Keflex antibiotic for groin cellulitis Overall very difficult to motivate and likely that has a lot to do with his dementia and cognitive deficit of slum score of 20 with behaviors May need to go to senior behavioral unit prior to [facility] or assisted living Patient at risk for decline if goes home and not safe to be at home alone Checked meds and labs Conferred with RN Reviewed therapy notes Review of Systems General: Fatigue Neurological: Incoordination, Confusion Objective Exam Vital Signs Vital Signs Date Time Temp Pulse Resp B/P (MAP) Pulse Ox O2 Delivery O2 Flow Rate FiO2 02/16/20 09:00 Room Air 02/16/20 06:37 36.5 85 16 124/65 (84) 97 02/15/20 10:09 21 Capillary Refill : Less Than 3 SecondsLess Than 3 Seconds General Appearance: No Apparent Distress, WD/WN, Chronically ill HEENT: PERRL/EOMI, Normal ENT Inspection, Pharynx Normal Neck: Full Range of Motion, Normal Inspection, Non Tender, Supple, Carotid Bruit Respiratory: Chest Non Tender, Lungs Clear, Normal Breath Sounds, No Accessory Muscle Use, No Respiratory Distress Cardiovascular: Regular Rate, Rhythm, No Edema, No Gallop, No JVD, No Murmur, Normal Peripheral Pulses Gastrointestinal: Normal Bowel Sounds, No Organomegaly, No Pulsatile Mass, Non Tender, Soft Back: Normal Inspection, No CVA Tenderness, No Vertebral Tenderness Extremity: Normal Capillary Refill, Normal Inspection, Normal Range of Motion (except right leg), Non Tender, No Calf Tenderness, No Pedal Edema Neurologic/Psychiatric: Alert, Oriented x3, No Motor/Sensory Deficits, Normal Mood/Affect, Abnormal Gait, Motor Weakness (right leg) Skin: Normal Color, Warm/Dry Lymphatic: No Adenopathy Results/Procedures Lab Patient resulted labs reviewed. FIM Transfers Therapy Code Descriptions/Definitions Functional [place] Measure: 0=Not Assessed/NA 4=Minimal Assistance 1=Total Assistance 5=Supervision or Setup 2=Maximal Assistance 6=Modified [place] 3=Moderate Assistance 7=Complete IndependenceSCALE: Activities may be completed with or without assistive devices. 1-Idsjcjjotv-sobwubh completes the activity by him/herself with no assistance from a helper. 5-Set-up or Clean-up Assistance-helper sets up or cleans up; patient completes activity. [place] assists only prior to or following the activity. 4-Supervision or Touching Assistance-helper provides verbal cues and/or touching/steadying and/or contact guard assistance as patient completes activity. Assistance may be provided throughout the activity or intermittently. 3-Partial/Moderate Assistance-helper does LESS THAN HALF the effort. [place] lifts, holds or supports trunk or limbs, but provides less than half the effort. 2-Substantial/Maximal Assistance-helper does MORE THAN HALF the effort. [place] lifts or holds trunk or limbs and provides more than half the effort. 5-Jfnvvythv-owwvhg does ALL the effort. Patient does none of the effort to complete the activity. Or, the assistance of 2 or more helpers is required for the patient to complete the activity. If activity was not attempted, code reason: 7-Patient Refused. 9-Not Applicable-not attempted and the patient did not perform the activity before the current illness, exacerbation or injury. 10-Not Attempted due to Environmental Limitations-(lack of equipment, weather restraints, etc.). 88-Not Attempted due to Medical Conditions or Safety Concerns. Roll Left to Right (QC): 6 Sit to Lying (QC): 3 Sit to Stand (QC): 2 Chair/Fvu-qa-Gkcab Xfer(QC): 3 Car Transfer (QC): 2 Gait Training Does the Patient Walk?: Yes Distance: 150', 10' Walk 10 feet (QC): 3 Walk 50 ft with 2 Turns(QC): 3 Walk 150 ft (QC): 3 Walking 10ft/uneven surface-QC: 88 Gait Assistive Device: FWW Wheelchair Training Does the Pt Use a Wheelchair?: Yes Distance: SEE PT GOALS Wheel 50 ft with 2 turns (QC): 5 Wheel 150 ft (QC): 5 Type of Wheelchair: Manual Stair Training 1 Step (curb) (QC): 88 4 Steps (QC): 88 12 Steps (QC): 88 Balance Picking up an Object (QC): 88 ADL-Treatment Eating (QC): 6 (requests water. Pt drinks with IND.) Oral Hygiene (QC): 7 Bathing Location: L Arm, R Arm, L Upper Leg, R Upper Leg, L Lower Leg (including foot), Chest, Abdomen, Perineal Area Shower/Bathe Self (QC): 3 (min A for RLE foot and bottom. Nursing notified of bottom wound (blood on breif). Bottom completed with TD and sonia cream applied.) Upper Body Dressing (QC): 5 Lower Body Dressing (QC): 3 (min A: pt able to thread BLE onto legs, brings over knees; requires assist to bring up over hips in stance (requires assist of 2 people due to decreased safety awareness and unsafe actions in stance as below). ) On/Off Footwear (QC): 3 (mod A- OT dons boot to R side, pt able to strap all straps this date. Pt requires min A to don sock to LLE. ) Toileting Hygiene (QC): 1 (TD (assist x2 to stand, TD for bottom hygiene)) Toilet Transfer (QC): 2 (max A to stancemin A to sit.) Assessment/Plan Assessment and Plan Assess & Plan/Chief Complaint Assessment: Right distal fibula fracture Alcoholism Smoker Memory loss HTN HLP Rhabdomyolysis Hypokalemia Plan: IRF protocol Pain meds ETOH w/d protocol HLIVF Replace potassium Patient may very well leave against medical advice Keep right leg in walking boot (1) Closed right fibular fracture Status: Acute (2) Smoker (3) Alcohol abuse (4) Cognitive deficits (5) Fall Status: Acute (6) Physical debility Status: Acute (7) Cellulitis of groin Status: Acute (8) Prostate cancer Status: Acute KAVON DRIVER DO Feb 16, 2020 05:56
[2020-02-16 06:37] VITALS: BP 124/65
[2020-02-16] MEDS: KCL 10 MEQ TAB (MICRO K) PO SCH (08:05)
[2020-02-16] MEDS: THIAMINE 100 MG (VITAMIN B-1) TAB PO SCH (08:05)
[2020-02-16] MEDS: MULTIVIT W/MINERALS TAB (THERAGRAN M) PO SCH (08:05)
[2020-02-16] MEDS: FOLIC ACID 1 MG TAB PO SCH (09:09)
[2020-02-16] MEDS: SENNA W/DOCUSATE (SENOKOT S) TABLET PO SCH ×2 (09:09→19:45)
[2020-02-16] MEDS: MAGNESIUM OXIDE (MAG-OX)400 MG TAB PO SCH ×2 (09:09→20:17)
[2020-02-16] MEDS: CEPHALEXIN 250 MG (KEFLEX) CAP PO SCH ×3 (09:09→20:17)
[2020-02-16] MEDS: DOCUSATE SODIUM 100 MG (COLACE) CAP PO SCH ×2 (09:09→19:44)
[2020-02-16] MEDS: polyethylene glycoL POWDER 17 GM (MIRALAX) PACK PO SCH ×2 (09:10→19:45)
--- NOTE | 2020-02-16 11:08 | Physical Therapy Daily Note ---
PT Daily Note-Current Subjective States that he is okay. Pain Numeric Pain Scale: 5-Moderate Pain Transfers SCALE: Activities may be completed with or without assistive devices. 5-Nyhfjushps-fjzbohr completes the activity by him/herself with no assistance from a helper. 5-Set-up or Clean-up Assistance-helper sets up or cleans up; patient completes activity. [place] assists only prior to or following the activity. 4-Supervision or Touching Assistance-helper provides verbal cues and/or touching/steadying and/or contact guard assistance as patient completes activity. Assistance may be provided throughout the activity or intermittently. 3-Partial/Moderate Assistance-helper does LESS THAN HALF the effort. [place] lifts, holds or supports trunk or limbs, but provides less than half the effort. 2-Substantial/Maximal Assistance-helper does MORE THAN HALF the effort. [place] lifts or holds trunk or limbs and provides more than half the effort. 9-Yjggcftmy-kofwnq does ALL the effort. Patient does none of the effort to com plete the activity. Or, the assistance of 2 or more helpers is required for the patient to complete the activity. If activity was not attempted, code reason: 7-Patient Refused. 9-Not Applicable-not attempted and the patient did not perform the activity before the current illness, exacerbation or injury. 10-Not Attempted due to Environmental Limitations-(lack of equipment, weather restraints, etc.). 88-Not Attempted due to Medical Conditions or Safety Concerns. Weight Bearing Right Lower Extremity: Right Weight Bearing/Tolerated cam boot on the right side Gait Training Does the Patient Walk?: Yes Distance: 40' Walk 10 feet (QC): 4 Gait Persons Needed: 1 Gait Assistive Device: FWW Exercises Supine Ex: LE Protocol Supine Reps: 20 Assessment Current Status: Good Progress Patient is progressing appropriately. PT Short Term Goals Short Term Goals Time Frame: Feb 19, 2020 Roll Left & Right: 6 Sit to lyin Lying to sitting on side of be: 6 Sit to stand: 3 Chair/bba-nh-nnden transfer: 3 Walk 10 feet: 3 PT Usp Goals Butadiene Compressor Operator Goals PT Butadiene Compressor Operator Goals Time Frame: Mar 04, 2020 Roll Left & Right (QC): 6 Sit to Lying (QC): 6 Lying-Sitting on Side/Bed(QC): 6 Sit to Stand (QC): 4 Chair/Yfy-df-Cahnr Xfer(QC): 4 Toilet Transfer (QC): 4 Car Transfer (QC): 4 Does the Patient Walk: Yes Walk 10 feet (QC): 4 Walk 50ft with 2 Turns (QC): 4 Walk 150 ft (QC): 88 Walking 10ft on Uneven Surface: 88 1 Step (curb) (QC): 4 4 Steps (QC): 4 12 Steps (QC): 88 Picking up an Object (QC): 88 Wheel 50 feet with 2 turns (QC: 6 Wheel 150 feet: 6 PT Plan Treatment/Plan Treatment Plan: Continue Plan of Care Treatment Plan: Bed Mobility, Education, Functional Activity Tiff, Functional Strength, Group Therapy, Gait, Safety, Therapeutic Exercise, Transfers Treatment Duration: Mar 04, 2020 Frequency: At least 5 of 7 days/Wk (IRF) Estimated Hrs Per Day: 1.5 hours per day Patient and/or Family Agrees t: Yes Time/GCodes Time In: 1045 Time Out: 1100 Total Billed Treatment Time: 15 Total Billed Treatment 1, GT x 15' BECCA WOOD PT Feb 16, 2020 11:07
--- NOTE | 2020-02-16 15:01 | NUR ---
Pt has been noncompliant with repositioning. He c/o chair being hard, but refuses to get out of recliner or allow pillows to shift weight from coccyx. Advised pt on risk of breakdown to skin and possibility of wound. Pt had one episode of incontinence and allowed RN to apply barrier cream. Pt has chewing tobacco in room. Pt advised of the no tobacco policy. Pt refuses to comply with policy and continues to chew tobacco in room.
[2020-02-16 18:00] VITALS: BP 120/65
[2020-02-16] MEDS: ENOXAPARIN 40 MG/0.4 ML (LOVENOX) SYR SC SCH (20:17)
[2020-02-17 05:05] VITALS: BP 111/77
[2020-02-17] MEDS: THIAMINE 100 MG (VITAMIN B-1) TAB PO SCH (06:53)
[2020-02-17] MEDS: MULTIVIT W/MINERALS TAB (THERAGRAN M) PO SCH (06:53)
[2020-02-17] MEDS: KCL 10 MEQ TAB (MICRO K) PO SCH (06:53)
[2020-02-17] MEDS: SENNA W/DOCUSATE (SENOKOT S) TABLET PO SCH ×2 (09:00→20:16)
[2020-02-17] MEDS: polyethylene glycoL POWDER 17 GM (MIRALAX) PACK PO SCH ×2 (09:00→20:16)
[2020-02-17] MEDS: MAGNESIUM OXIDE (MAG-OX)400 MG TAB PO SCH ×2 (10:07→20:17)
[2020-02-17] MEDS: DOCUSATE SODIUM 100 MG (COLACE) CAP PO SCH ×2 (10:07→20:16)
[2020-02-17] MEDS: FOLIC ACID 1 MG TAB PO SCH (10:07)
--- NOTE | 2020-02-17 13:26 | PM&R Progress Note ---
Subjective HPI/CC On Admission Date Seen by Provider: Feb 17, 2020 Time Seen by Provider: 06:00 Subjective/Events-last exam Very noncompliant and unmotivated and refuses to get out of recliner, he sits in it all day and sleeps in it at night Therapy really aggressively tried to get him to participate Chews tobacco constantly Completed Keflex antibiotic for groin cellulitis Overall very difficult to motivate and likely that has a lot to do with his dementia and cognitive deficit of slum score of 20 with behaviors May need to go to senior behavioral unit prior to penitentiary or assisted living Patient at risk for decline if goes home and not safe to be at home alone Very difficult personality with dementia Checked meds and labs Conferred with RN Reviewed therapy notes Review of Systems Musculoskeletal: leg pain Neurological: Confusion Objective Exam Vital Signs Vital Signs Date Time Temp Pulse Resp B/P (MAP) Pulse Ox O2 Delivery O2 Flow Rate FiO2 02/17/20 09:00 Room Air 02/17/20 05:05 36.4 98 20 111/77 (88) 97 02/15/20 10:09 21 Capillary Refill : Less Than 3 SecondsLess Than 3 Seconds General Appearance: No Apparent Distress, WD/WN, Chronically ill HEENT: PERRL/EOMI, Normal ENT Inspection, Pharynx Normal Neck: Full Range of Motion, Normal Inspection, Non Tender, Supple, Carotid Bruit Respiratory: Chest Non Tender, Lungs Clear, Normal Breath Sounds, No Accessory Muscle Use, No Respiratory Distress Cardiovascular: Regular Rate, Rhythm, No Edema, No Gallop, No JVD, No Murmur, Normal Peripheral Pulses Gastrointestinal: Normal Bowel Sounds, No Organomegaly, No Pulsatile Mass, Non Tender, Soft Back: Normal Inspection, No CVA Tenderness, No Vertebral Tenderness Extremity: Normal Capillary Refill, Normal Inspection, Normal Range of Motion (except right leg), Non Tender, No Calf Tenderness, No Pedal Edema Neurologic/Psychiatric: Alert, Oriented x3, No Motor/Sensory Deficits, Normal Mood/Affect, Abnormal Gait, Motor Weakness (right leg) Skin: Normal Color, Warm/Dry Lymphatic: No Adenopathy Results/Procedures Lab Patient resulted labs reviewed. FIM Transfers Therapy Code Descriptions/Definitions Functional [place] Measure: 0=Not Assessed/NA 4=Minimal Assistance 1=Total Assistance 5=Supervision or Setup 2=Maximal Assistance 6=Modified [place] 3=Moderate Assistance 7=Complete IndependenceSCALE: Activities may be completed with or without assistive devices. 5-Wntxnubxns-uumvmva completes the activity by him/herself with no assistance from a helper. 5-Set-up or Clean-up Assistance-helper sets up or cleans up; patient completes activity. [place] assists only prior to or following the activity. 4-Supervision or Touching Assistance-helper provides verbal cues and/or touching/steadying and/or contact guard assistance as patient completes activity. Assistance may be provided throughout the activity or intermittently. 3-Partial/Moderate Assistance-helper does LESS THAN HALF the effort. [place] lifts, holds or supports trunk or limbs, but provides less than half the effort. 2-Substantial/Maximal Assistance-helper does MORE THAN HALF the effort. [place] lifts or holds trunk or limbs and provides more than half the effort. 6-Ruufidiox-lkgxuw does ALL the effort. Patient does none of the effort to complete the activity. Or, the assistance of 2 or more helpers is required for the patient to complete the activity. If activity was not attempted, code reason: 7-Patient Refused. 9-Not Applicable-not attempted and the patient did not perform the activity before the current illness, exacerbation or injury. 10-Not Attempted due to Environmental Limitations-(lack of equipment, weather restraints, etc.). 88-Not Attempted due to Medical Conditions or Safety Concerns. Roll Left to Right (QC): 6 Sit to Lying (QC): 3 Sit to Stand (QC): 2 Chair/Max-qg-Xmjsm Xfer(QC): 3 Car Transfer (QC): 2 Gait Training Does the Patient Walk?: Yes Distance: 40' Walk 10 feet (QC): 4 Walk 50 ft with 2 Turns(QC): 3 Walk 150 ft (QC): 3 Walking 10ft/uneven surface-QC: 88 Gait Persons Needed: 1 Gait Assistive Device: FWW Wheelchair Training Does the Pt Use a Wheelchair?: Yes Distance: SEE PT GOALS Wheel 50 ft with 2 turns (QC): 5 Wheel 150 ft (QC): 5 Type of Wheelchair: Manual Stair Training 1 Step (curb) (QC): 88 4 Steps (QC): 88 12 Steps (QC): 88 Balance Picking up an Object (QC): 88 ADL-Treatment Eating (QC): 6 (requests water. Pt drinks with IND.) Oral Hygiene (QC): 7 Bathing Location: L Arm, R Arm, L Upper Leg, R Upper Leg, L Lower Leg (including foot), Chest, Abdomen, Perineal Area Shower/Bathe Self (QC): 3 (min A for RLE foot and bottom. Nursing notified of bottom wound (blood on breif). Bottom completed with TD and sonia cream applied.) Upper Body Dressing (QC): 5 Lower Body Dressing (QC): 3 (min A: pt able to thread BLE onto legs, brings over knees; requires assist to bring up over hips in stance (requires assist of 2 people due to decreased safety awareness and unsafe actions in stance as below). ) On/Off Footwear (QC): 3 (mod A- OT dons boot to R side, pt able to strap all straps this date. Pt requires min A to don sock to LLE. ) Toileting Hygiene (QC): 1 (TD (assist x2 to stand, TD for bottom hygiene)) Toilet Transfer (QC): 2 (max A to stancemin A to sit.) Assessment/Plan Assessment and Plan Assess & Plan/Chief Complaint Assessment: Right distal fibula fracture Alcoholism Smoker Memory loss HTN HLP Rhabdomyolysis Hypokalemia Plan: IRF protocol Pain meds ETOH w/d protocol HLIVF Replace potassium Patient may very well leave against medical advice Keep right leg in walking boot Needs NH or AL (1) Closed right fibular fracture Status: Acute (2) Smoker (3) Alcohol abuse (4) Cognitive deficits (5) Fall Status: Acute (6) Physical debility Status: Acute (7) Cellulitis of groin Status: Acute (8) Prostate cancer Status: Acute KAVON DRIVER DO Feb 17, 2020 13:26
[2020-02-17 18:34] VITALS: BP 118/79
--- NOTE | 2020-02-17 19:29 | NUR ---
bedside report received from LEWIS NORRIS, assume care of pt
[2020-02-17] MEDS: ENOXAPARIN 40 MG/0.4 ML (LOVENOX) SYR SC SCH (20:17)
--- NOTE | 2020-02-17 20:17 | NUR ---
pt refused Colace, miralax & Senokot, pt refused to go back to bed, states I sleep in this chair, refuses repositioning in chair
[2020-02-18 05:31] VITALS: BP 115/73
[2020-02-18 05:41] LABS: BASOPHILS % (AUTO) 1 % (0-10); EOSINOPHILS # (AUTO) 0.4 10^3/uL (0.0-0.3); EOSINOPHILS % (AUTO) 5 % (0-10); HEMATOCRIT 39 % (40-54); HEMOGLOBIN 13.1 G/DL (13.3-17.7); LYMPHOCYTES # (AUTO) 2.2 X 10^3 (1.0-4.0); LYMPHOCYTES % (AUTO) 27 % (12-44); MEAN CORPUSCULAR HEMOGLOBIN 32 PG (25-34); MEAN CORPUSCULAR HGB CONC 34 G/DL (32-36); MEAN CORPUSCULAR VOLUME 94 FL (80-99); MEAN PLATELET VOLUME 10.1 FL (7.4-10.4); MONOCYTES % (AUTO) 12 % (0-12); NEUTROPHILS # (AUTO) 4.4 X 10^3 (1.8-7.8); NEUTROPHILS % (AUTO) 56 % (42-75); PLATELET COUNT 305 10^3/uL (130-400); RED CELL DISTRIBUTION WIDTH 14.9 % (10.0-14.5); WHITE BLOOD COUNT 7.9 10^3/uL (4.3-11.0)
[2020-02-18 05:49] LABS: ALBUMIN 3.8 GM/DL (3.2-4.5); CHLORIDE 102 MMOL/L (98-107); POTASSIUM 4.1 MMOL/L (3.6-5.0); SODIUM 136 MMOL/L (135-145)
[2020-02-18 05:50] LABS: CALCIUM 9.8 MG/DL (8.5-10.1)
[2020-02-18 05:51] LABS: GLUCOSE 106 MG/DL (70-105); TOTAL PROTEIN 7.5 GM/DL (6.4-8.2)
[2020-02-18 05:52] LABS: CARBON DIOXIDE 21 MMOL/L (21-32)
[2020-02-18 05:53] LABS: BILIRUBIN,TOTAL 0.5 MG/DL (0.1-1.0)
[2020-02-18 05:55] LABS: ALKALINE PHOSPHATASE 59 U/L (40-136); CREATININE SERUM 0.99 MG/DL (0.60-1.30); GFR ESTIMATED > 60
[2020-02-18 05:56] LABS: BUN/CREATININE RATIO 15
[2020-02-18 05:58] LABS: ALANINE AMINOTRANSFERASE 44 U/L (0-55)
[2020-02-18] MEDS: THIAMINE 100 MG (VITAMIN B-1) TAB PO SCH (06:52)
[2020-02-18] MEDS: KCL 10 MEQ TAB (MICRO K) PO SCH (06:52)
[2020-02-18] MEDS: MULTIVIT W/MINERALS TAB (THERAGRAN M) PO SCH (06:52)
[2020-02-18] MEDS: DOCUSATE SODIUM 100 MG (COLACE) CAP PO SCH ×2 (08:36→20:45)
[2020-02-18] MEDS: MAGNESIUM OXIDE (MAG-OX)400 MG TAB PO SCH ×2 (08:36→20:41)
[2020-02-18] MEDS: FOLIC ACID 1 MG TAB PO SCH (08:36)
[2020-02-18] MEDS: SENNA W/DOCUSATE (SENOKOT S) TABLET PO SCH ×2 (08:37→20:45)
[2020-02-18] MEDS: polyethylene glycoL POWDER 17 GM (MIRALAX) PACK PO SCH ×2 (08:38→20:45)
--- NOTE | 2020-02-18 10:23 | PM&R Progress Note ---
Subjective HPI/CC On Admission Date Seen by Provider: Feb 18, 2020 Time Seen by Provider: 10:00 Subjective/Events-last exam He refuses therapy most of the time Wants to go home Family concerned about him living alone so unsure how we will manage this Had a bowel movement 1 day ago and that part is going well Pain is well controlled Checked meds and lab Conferred with RN Reviewed therapy notes Review of Systems General: Fatigue Musculoskeletal: leg pain Objective Exam Vital Signs Vital Signs Date Time Temp Pulse Resp B/P (MAP) Pulse Ox O2 Delivery O2 Flow Rate FiO2 02/18/20 16:00 36.9 98 16 96/63 (74) 99 Room Air 02/15/20 10:09 21 Capillary Refill : Less Than 3 SecondsLess Than 3 Seconds General Appearance: No Apparent Distress, WD/WN, Chronically ill HEENT: PERRL/EOMI, Normal ENT Inspection, Pharynx Normal Neck: Full Range of Motion, Normal Inspection, Non Tender, Supple, Carotid Bruit Respiratory: Chest Non Tender, Lungs Clear, Normal Breath Sounds, No Accessory Muscle Use, No Respiratory Distress Cardiovascular: Regular Rate, Rhythm, No Edema, No Gallop, No JVD, No Murmur, Normal Peripheral Pulses Gastrointestinal: Normal Bowel Sounds, No Organomegaly, No Pulsatile Mass, Non Tender, Soft Back: Normal Inspection, No CVA Tenderness, No Vertebral Tenderness Extremity: Normal Capillary Refill, Normal Inspection, Normal Range of Motion (except right leg), Non Tender, No Calf Tenderness, No Pedal Edema Neurologic/Psychiatric: Alert, Oriented x3, No Motor/Sensory Deficits, Normal Mood/Affect, Abnormal Gait, Motor Weakness (right leg) Skin: Normal Color, Warm/Dry Lymphatic: No Adenopathy Results/Procedures Lab Laboratory Tests 02/18/20 04:39 Patient resulted labs reviewed. FIM Transfers Therapy Code Descriptions/Definitions Functional [place] Measure: 0=Not Assessed/NA 4=Minimal Assistance 1=Total Assistance 5=Supervision or Setup 2=Maximal Assistance 6=Modified [place] 3=Moderate Assistance 7=Complete IndependenceSCALE: Activities may be completed with or without assistive devices. 5-Xvdtiuamwk-aqawukm completes the activity by him/herself with no assistance from a helper. 5-Set-up or Clean-up Assistance-helper sets up or cleans up; patient completes activity. [place] assists only prior to or following the activity. 4-Supervision or Touching Assistance-helper provides verbal cues and/or touching/steadying and/or contact guard assistance as patient completes activity. Assistance may be provided throughout the activity or intermittently. 3-Partial/Moderate Assistance-helper does LESS THAN HALF the effort. [place] lifts, holds or supports trunk or limbs, but provides less than half the effort. 2-Substantial/Maximal Assistance-helper does MORE THAN HALF the effort. [place] lifts or holds trunk or limbs and provides more than half the effort. 7-Ftzmqfykz-dtbkmd does ALL the effort. Patient does none of the effort to compl ete the activity. Or, the assistance of 2 or more helpers is required for the patient to complete the activity. If activity was not attempted, code reason: 7-Patient Refused. 9-Not Applicable-not attempted and the patient did not perform the activity before the current illness, exacerbation or injury. 10-Not Attempted due to Environmental Limitations-(lack of equipment, weather restraints, etc.). 88-Not Attempted due to Medical Conditions or Safety Concerns. Roll Left to Right (QC): 6 Sit to Lying (QC): 3 Sit to Stand (QC): 2 Chair/Hbr-fc-Xyluz Xfer(QC): 3 Car Transfer (QC): 2 Gait Training Does the Patient Walk?: Yes Distance: 40' Walk 10 feet (QC): 4 Walk 50 ft with 2 Turns(QC): 3 Walk 150 ft (QC): 3 Walking 10ft/uneven surface-QC: 88 Gait Persons Needed: 1 Gait Assistive Device: FWW Wheelchair Training Does the Pt Use a Wheelchair?: Yes Distance: SEE PT GOALS Wheel 50 ft with 2 turns (QC): 5 Wheel 150 ft (QC): 5 Type of Wheelchair: Manual Stair Training 1 Step (curb) (QC): 88 4 Steps (QC): 88 12 Steps (QC): 88 Balance Picking up an Object (QC): 88 ADL-Treatment Eating (QC): 6 (requests water. Pt drinks with IND.) Oral Hygiene (QC): 7 Bathing Location: L Arm, R Arm, L Upper Leg, R Upper Leg, L Lower Leg (including foot), Chest, Abdomen, Perineal Area Shower/Bathe Self (QC): 3 (min A for RLE foot and bottom. Nursing notified of bottom wound (blood on breif). Bottom completed with TD and sonia cream applied.) Upper Body Dressing (QC): 5 Lower Body Dressing (QC): 3 (min A: pt able to thread BLE onto legs, brings over knees; requires assist to bring up over hips in stance (requires assist of 2 people due to decreased safety awareness and unsafe actions in stance as below). ) On/Off Footwear (QC): 3 (mod A- OT dons boot to R side, pt able to strap all straps this date. Pt requires min A to don sock to LLE. ) Toileting Hygiene (QC): 1 (TD (assist x2 to stand, TD for bottom hygiene)) Toilet Transfer (QC): 2 (max A to stancemin A to sit.) Assessment/Plan Assessment and Plan Assess & Plan/Chief Complaint Assessment: Right distal fibula fracture Alcoholism Smoker Memory loss HTN HLP Rhabdomyolysis Hypokalemia Plan: IRF protocol Pain meds ETOH w/d protocol HLIVF Replace potassium Patient may very well leave against medical advice Keep right leg in walking boot Needs NH or AL but refuses May need to be discharged home with family care as he wishes (1) Closed right fibular fracture Status: Acute (2) Smoker (3) Alcohol abuse (4) Cognitive deficits (5) Fall Status: Acute (6) Physical debility Status: Acute (7) Cellulitis of groin Status: Acute (8) Prostate cancer Status: Acute KAVON DRIVER DO Feb 18, 2020 10:23
--- NOTE | 2020-02-18 10:37 | Occupational Ther Daily Note ---
OT Current Status-Daily Note Subjective 0915: Pt seen in recliner this am. Pt states pain, though does not state where at. Pt alert/ oriented. Pt screams intermittently through session when moving, requires increased time due to decreased energy/ attention to task. Pt more agreeable to therapy this am. [id number]: Pt seen in recliner this afternoon. Pt's eyes closed, opens upon entry and vocalizations. Pt states he is fatigued. Pt requires encouragement for participation this afternoon. Pt doesn't c/o pain, though verbal while moving. Mental Status/Objective Patient Orientation: Person, Place, Situation ADL-Treatment Therapy Code Descriptions/Definitions Functional [place] Measure: 0=Not Assessed/NA 4=Minimal Assistance 1=Total Assistance 5=Supervision or Setup 2=Maximal Assistance 6=Modified [place] 3=Moderate Assistance 7=Complete IndependenceSCALE: Activities may be completed with or without assistive devices. 5-Bdjsivotdg-yfqxxsu completes the activity by him/herself with no assistance from a helper. 5-Set-up or Clean-up Assistance-helper sets up or cleans up; patient completes activity. [place] assists only prior to or following the activity. 4-Supervision or Touching Assistance-helper provides verbal cues and/or touching/steadying and/or contact guard assistance as patient completes activity. Assistance may be provided throughout the activity or intermittently. 3-Partial/Moderate Assistance-helper does LESS THAN HALF the effort. [place] lifts, holds or supports trunk or limbs, but provides less than half the effort. 2-Substantial/Maximal Assistance-helper does MORE THAN HALF the effort. [place] lifts or holds trunk or limbs and provides more than half the effort. 2-Ercsigkvn-owyskl does ALL the effort. Patient does none of the effort to complete the activity. Or, the assistance of 2 or more helpers is required for the patient to complete the activity. If activity was not attempted, code reason: 7-Patient Refused. 9-Not Applicable-not attempted and the patient did not perform the activity before the current illness, exacerbation or injury. 10-Not Attempted due to Environmental Limitations-(lack of equipment, weather restraints, etc.). 88-Not Attempted due to Medical Conditions or Safety Concerns. Eating (QC): 6 Oral Hygiene (QC): 7 Bathing Location: L Arm, R Arm, L Upper Leg, R Upper Leg, L Lower Leg (including foot), Chest, Abdomen, Buttocks, Perineal Area Shower/Bathe Self (QC): 3 (min A for R foot and thoroughness for bottom hygiene. Pt completes with increased time, able to stand and complete bottom hygiene with good balance.) Upper Body Dressing (QC): 5 (s/u) Lower Body Dressing (QC): 4 (SBA while EOB with cues for use of dressing stick.) On/Off Footwear: 4 (cues for donning/ doffing R boot. Completes with increased time. Pt able to doff/ don L sock with SBA.) Toileting Hygiene (QC): 4 (Pt has BM, completes toilet hygiene in sit with SBA. Pt requires assist for thoroughness. CGA in stance during BM cleaning.) Toilet Transfer (QC): 4 (CGA. Pt able to sit to stand from higher commode surface with cues for hand positioning and CGA.) Other Treatment [id number]: Pt requests urination. pt encouraged to get to commode. Pt agrees without much encouragement. Pt completes sit to stand with cues for hand position and walker use from recliner; mod A for sit to stand. Pt ambulates and turns to sit on commode; states, "Where am I?" Pt given cues to place legs on back of commode, pt given time for BM/ urination. Pt urinated on floor, able to utilize LLE to clean with towel across area. Pt completes BM cleaning while sitting, pt agrees to sponge bath with encouragement. Pt states, "Might as well while I'm sitting up." Pt sits with control on bed, completes sponge bath with cues for continuation, rest breaks, and min A for R foot and bottom. Pt states mid-bath that he needs to sit in recliner, when asked why pt states he is going to fall from EOB. Pt agrees to being dizzy/ lightheaded. Pt educated on decreased safety/ increased fall risk while standing up when dizzy. Pt states, "I'm going to fall from the bed." Pt's gait belt donned. After redirection pt does not c/o being lightheaded throughout rest of session. Pt dresses EOB with increased IND, use of natural gas trader, pt requires cues for use and dressing cues (sequencing). Pt doffs/ dons boot as above; states he does not plan to wear at home, states, "I'll just toss it on the floor and use socks." Sit to stand from high bed with SBA and ambulates to toilet, stating need for urination. Pt given cues for use and position of walker, pt attempts, states cannot relax. Pt given urinal in stance, pt attempts and again can't urinate. States desire to sit, sits without cues and with good control. All needs met, call light in reach. Pt states, "How do I turn on my TV?" Pt instructed bottom/ blue button. Pt states cannot find, pt requires visual cue to scan and find. All needs met. [id number]: Pt seen in recliner. Requires mod encouragement upon entry for participation. Pt agrees when provided 3 options. Pt stands with mod A x1, stands for ~5 min and completes AROM of BUE (alternating with one on walker level), completes 10 reps of forward flexion to bottom to encourage balance duri ng bottom hygiene, pt then completes 10 reps of bicep curls in stance with L and R UE with red theraband. Pt able to state need for sit. Pt reaches with R hand and sits with control. Pt states need for urination. Pt encouraged to sit on commode/ get up an additional time. Pt laughs. States, "Give me the urinal." Pt handed urinal and all needs met, call light in reach. Education OT Patient Education: Correct positioning, Home exercise program, Modified ADL techniques, Purpose of tx/functional activities Teaching Recipient: Patient Teaching Methods: Demonstration, Discussion Response to Teaching: Verbalize Understanding, Return Demonstration, Reinforcement Needed OT Short Term Goals Short Term Goals Time Frame: Feb 19, 2020 Shower/bathe self: 3 Upper body dressin Lower body dressin OT Custodial Goals Sample Tester Grinder Goals Time Frame: Feb 26, 2020 Eating (QC): 6 Oral Hygiene (QC): 6 Toileting Hygiene (QC): 6 Shower/Bathe Self (QC): 6 Upper Body Dressing (QC): 6 Lower Body Dressing (QC): 6 On/Off Footwear (QC): 6 Additional Goals: 1-Demonstrate ADL Tasks, 2-Verbalize Understanding, 3-Impr oveStrength/Tiff 1=Demonstrate adherence to instructed precautions during ADL tasks. 2=Patient will verbalize/demonstrate understanding of assistive devices/modifications for ADL. 3=Patient will improve strength/tolerance for activity to enable patient to perform ADL's. OT Education/Plan Problem List/Assessment Assessment: Decreased Activ Tolerance, Decreased UE Strength, Dependent Transfers, Impaired Cognition, Impaired Funct Balance, Impaired I ADL's, Impaire d Self-Care Skills Discharge Recommendations Plan/Recommendations: Continue POC Therapy Discharge Recommendati: 24 Hour Supervision Treatment Plan/Plan of Care Treatment,Training & Education: Yes Patient would benefit from OT for education, treatment and training to promote independence in ADL's, mobility, safety and/or upper extremity function for ADL's. Plan of Care: ADL Retraining, Caregiver Training, Concurrent Therapy, Functional Mobility, Group Exercise/Act as Ind, UE Funct Exercise/Act, W/C Management Training Treatment Duration: Feb 26, 2020 Frequency: At least 5 of 7 days/Wk (IRF) Estimated Hrs Per Day: 1.5 hours per day Agreement: Yes Rehab Potential: Fair Time/GCodes Start Time: 09:15 (1300) Stop Time: 10:30 (1315) Total Time Billed (hr/min): 90 Billed Treatment Time 1, ADL 5 (75) 1, EX (15) total: 90 ED LANDEROS OTR Feb 18, 2020 10:37
--- NOTE | 2020-02-18 12:09 | Physical Therapy Daily Note ---
PT Daily Note-Current Subjective Pt. up in recliner. Explains how he had his fall that caused the fracture. Pt. shared that he lost his to dementia and had taken care of her for 7 years . Pt. says he want to work hard to get home and is committed to do so but when this ARTIST'S MANAGER explains the task at hand to prep for stance, balance and gait with FWW pt. brandys. "Kendal already done all that today and this is the most Kendal done in a ling while" States he has kitchen helper at home that comes 1x/wk for 2 hrs to clean Pain Location: No Pain Reported Mental Status Patient Orientation: Person, Place, Time, Situation Attachments: Other-See Comments (walker boot right) Transfers SCALE: Activities may be completed with or without assistive devices. 4-Yycevnoesv-isdewgu completes the activity by him/herself with no assistance from a helper. 5-Set-up or Clean-up Assistance-helper sets up or cleans up; patient completes activity. [place] assists only prior to or following the activity. 4-Supervision or Touching Assistance-helper provides verbal cues and/or touching/steadying and/or contact guard assistance as patient completes activity. Assistance may be provided throughout the activity or intermittently. 3-Partial/Moderate Assistance-helper does LESS THAN HALF the effort. [place] lifts, holds or supports trunk or limbs, but provides less than half the effort. 2-Substantial/Maximal Assistance-helper does MORE THAN HALF the effort. [place] lifts or holds trunk or limbs and provides more than half the effort. 8-Zaiansloa-imnxxe does ALL the effort. Patient does none of the effort to complete the activity. Or, the assistance of 2 or more helpers is required for the patient to complete the activity. If activity was not attempted, code reason: 7-Patient Refused. 9-Not Applicable-not attempted and the patient did not perform the activity before the current illness, exacerbation or injury. 10-Not Attempted due to Environmental Limitations-(lack of equipment, weather restraints, etc.). 88-Not Attempted due to Medical Conditions or Safety Concerns. Sit to Stand (QC): 4 Weight Bearing Right Lower Extremity: Right Weight Bearing/Tolerated cam boot on the right side Exercises Seated Therapy Exercises: Ankle pumps, Sit to stand, Long arc quads, Hip flexion, Hip abd/add Seated Reps: 12 Treatments pt. states he will participate but then c/o he is too tired or "Kendal got to get stronger before I can do all that" Pt. expresses fear to be on his feet. FWW was demonstrated to pt. Pt. c/o dizziness on feet. BP ion sittin/77, HR 112, standing BP 120/78, HR 124. Pt. was challenged to stand for slightly longer periods of time but 20-40 seconds was the limit, he sat. Pt. unmotivated and or fearful Assessment Current Status: Fair Progress says he is committed to work hard at getting home but does not follow with actual work and therapy. This ARTIST'S MANAGER asking what he hopes to do at [place] if he cannot be mobile etc. "oh Ill gert there , give me some time, Kendal got to get stronger" PT Short Term Goals Short Term Goals Time Frame: Feb 19, 2020 Roll Left & Right: 6 Sit to lyin Lying to sitting on side of be: 6 Sit to stand: 3 Chair/wbp-ig-jdjko transfer: 3 Walk 10 feet: 3 PT Motor Vehicle Field Representative Goals Motor Vehicle Field Representative Goals PT Motor Vehicle Field Representative Goals Time Frame: Mar 04, 2020 Roll Left & Right (QC): 6 Sit to Lying (QC): 6 Lying-Sitting on Side/Bed(QC): 6 Sit to Stand (QC): 4 Chair/Oun-tb-Wvfnr Xfer(QC): 4 Toilet Transfer (QC): 4 Car Transfer (QC): 4 Does the Patient Walk: Yes Walk 10 feet (QC): 4 Walk 50ft with 2 Turns (QC): 4 Walk 150 ft (QC): 88 Walking 10ft on Uneven Surface: 88 1 Step (curb) (QC): 4 4 Steps (QC): 4 12 Steps (QC): 88 Picking up an Object (QC): 88 Wheel 50 feet with 2 turns (QC: 6 Wheel 150 feet: 6 PT Plan Treatment/Plan Treatment Plan: Continue Plan of Care Treatment Plan: Bed Mobility, Education, Functional Activity Tiff, Functional Strength, Group Therapy, Gait, Safety, Therapeutic Exercise, Transfers Treatment Duration: Mar 04, 2020 Frequency: At least 5 of 7 days/Wk (IRF) Estimated Hrs Per Day: 1.5 hours per day Patient and/or Family Agrees t: Yes Safety Risks/Education Patient Education: Transfer Techniques, Correct Positioning, Disease Process, Safety Issues Teaching Recipient: Patient Teaching Methods: Demonstration, Discussion Response to Teaching: Verbalize Understanding, Reinforcement Needed Time/GCodes Time In: 1110 Time Out: 1210 Total Billed Treatment Time: 60 Total Billed Treatment 1,EX20m,FA40m PUJA LIMA ARTIST'S MANAGER Feb 18, 2020 12:09
--- NOTE | 2020-02-18 13:10 | NUR ---
CM/SS CONCURRENT DOCUMENTATION Reviewed EMR from 02/13- for patient overall status, therapy progress notes generally reflect poor participation/motivation but with some improvement today. Hopper Filler contacted son/POA Dudley for update on family discussion about patient's discharge. Dudley and Franco both visited patient over the holiday weekend. In summary, they have concluded that patient is not currently appropriate for an assisted living environment and that they will instead seek community long-term facility in the [facility]. Hopper Filler spoke with Dudley's Kelly who will be researching facilities and provide names and contact information for referrals. Explained Medicare skilled benefits as it relates to patient participation and advised that if he continues with lack of participation the SNF would remove him from skilled status into private pay. Kelly's questions answered to her satisfaction, she will explore SNF's and update financial underwriter today with choices. Dudley will transport patient once a facility has accepted, he works at [employer] in [place] and will have to arrange for time off. [facility] Assessment continues waived due to Covid19. Pursue SNF placement once facilities are identified.
--- NOTE | 2020-02-18 15:12 | Physical Therapy Daily Note ---
PT Daily Note-Current Subjective Pts. son present and very encouraging. Pt. responded well to his sons encouragement and agreed to walk. Pt. requested diet coke. Nurse brought this to him after Rx Mental Status Attachments: Other-See Comments (cam walker boot right) Transfers SCALE: Activities may be completed with or without assistive devices. 8-Rhpoxpzekw-kqpnihx completes the activity by him/herself with no assistance from a helper. 5-Set-up or Clean-up Assistance-helper sets up or cleans up; patient completes activity. [place] assists only prior to or following the activity. 4-Supervision or Touching Assistance-helper provides verbal cues and/or doming[place] digna/steadying and/or contact guard assistance as patient completes activity. Assistance may be provided throughout the activity or intermittently. 3-Partial/Moderate Assistance-helper does LESS THAN HALF the effort. [place] lifts, holds or supports trunk or limbs, but provides less than half the effort. 2-Substantial/Maximal Assistance-helper does MORE THAN HALF the effort. [place] lifts or holds trunk or limbs and provides more than half the effort. 7-Qpyqxdcfn-zlatxr does ALL the effort. Patient does none of the effort to complete the activity. Or, the assistance of 2 or more helpers is required for the patient to complete the activity. If activity was not attempted, code reason: 7-Patient Refused. 9-Not Applicable-not attempted and the patient did not perform the activity before the current illness, exacerbation or injury. 10-Not Attempted due to Environmental Limitations-(lack of equipment, weather restraints, etc.). 88-Not Attempted due to Medical Conditions or Safety Concerns. Sit to Stand (QC): 4 5-6 sit to stand CGA Weight Bearing Right Lower Extremity: Right Weight Bearing/Tolerated cam boot on the right side Gait Training Does the Patient Walk?: Yes Walk 50 ft with 2 Turns(QC): 4 Gait Persons Needed: 1 Gait Assistive Device: FWW gait with some dyspnea but did ambulate 50ft x2, 75 ft and 40 ft with CGA, heavy wt bearing on FWW and flexed trunk, no nancy LOB Exercises Seated Therapy Exercises: Sit to stand, Long arc quads, Hip flexion Seated Reps: 10 Assessment Current Status: Good Progress more cooperative this afternoon. seems encouraged to see his son and is motivated by him PT Short Term Goals Short Term Goals Time Frame: Feb 19, 2020 Roll Left & Right: 6 Sit to lyin Lying to sitting on side of be: 6 Sit to stand: 3 Chair/aqv-so-ymoww transfer: 3 Walk 10 feet: 3 PT Assisted Goals Assisted Goals PT Fashion Buyer Goals Time Frame: Mar 04, 2020 Roll Left & Right (QC): 6 Sit to Lying (QC): 6 Lying-Sitting on Side/Bed(QC): 6 Sit to Stand (QC): 4 Chair/Uct-tr-Lstxs Xfer(QC): 4 Toilet Transfer (QC): 4 Car Transfer (QC): 4 Does the Patient Walk: Yes Walk 10 feet (QC): 4 Walk 50ft with 2 Turns (QC): 4 Walk 150 ft (QC): 88 Walking 10ft on Uneven Surface: 88 1 Step (curb) (QC): 4 4 Steps (QC): 4 12 Steps (QC): 88 Picking up an Object (QC): 88 Wheel 50 feet with 2 turns (QC: 6 Wheel 150 feet: 6 PT Plan Treatment/Plan Treatment Plan: Continue Plan of Care Treatment Plan: Bed Mobility, Education, Functional Activity Tiff, Functional Strength, Group Therapy, Gait, Safety, Therapeutic Exercise, Transfers Treatment Duration: Mar 04, 2020 Frequency: At least 5 of 7 days/Wk (IRF) Estimated Hrs Per Day: 1.5 hours per day Patient and/or Family Agrees t: Yes Safety Risks/Education Patient Education: Gait Training, Transfer Techniques, Correct Positioning, Disease Process, Safety Issues Teaching Recipient: Patient Teaching Methods: Demonstration, Discussion Response to Teaching: Verbalize Understanding, Return Demonstration, Unable to Comprehend, Reinforcement Needed Time/GCodes Time In: 1430 Time Out: 1500 Total Billed Treatment Time: 30 Total Billed Treatment 1,GT20m,EX10m PUJA LIMA TILE PICKER Feb 18, 2020 15:12
[2020-02-18 16:00] VITALS: BP 96/63
[2020-02-18] MEDS: ENOXAPARIN 40 MG/0.4 ML (LOVENOX) SYR SC SCH (20:41)
[2020-02-19 05:38] VITALS: BP 109/65
[2020-02-19] MEDS: THIAMINE 100 MG (VITAMIN B-1) TAB PO SCH (06:24)
[2020-02-19] MEDS: MULTIVIT W/MINERALS TAB (THERAGRAN M) PO SCH (06:24)
[2020-02-19] MEDS: KCL 10 MEQ TAB (MICRO K) PO SCH (06:24)
[2020-02-19] MEDS: FOLIC ACID 1 MG TAB PO SCH (09:10)
[2020-02-19] MEDS: polyethylene glycoL POWDER 17 GM (MIRALAX) PACK PO SCH ×2 (09:10→21:09)
[2020-02-19] MEDS: SENNA W/DOCUSATE (SENOKOT S) TABLET PO SCH ×2 (09:10→20:44)
[2020-02-19] MEDS: DOCUSATE SODIUM 100 MG (COLACE) CAP PO SCH ×2 (09:10→20:44)
[2020-02-19] MEDS: MAGNESIUM OXIDE (MAG-OX)400 MG TAB PO SCH ×2 (09:10→20:44)
--- NOTE | 2020-02-19 09:10 | PM&R Progress Note ---
Subjective HPI/CC On Admission Date Seen by Provider: Feb 19, 2020 Time Seen by Provider: 09:00 Subjective/Events-last exam Sleeping in the recliner still Had a BM today Improved motivation after therapy talked to him Buttocks are doing okay and we will be continuing the barrier cream on those Denied any significant pain other than his leg Checked meds and lab Conferred with RN Reviewed therapy notes Review of Systems General: Fatigue, Malaise Musculoskeletal: leg pain Objective Exam Vital Signs Vital Signs Date Time Temp Pulse Resp B/P (MAP) Pulse Ox O2 Delivery O2 Flow Rate FiO2 02/19/20 18:52 37.1 111 20 114/74 (87) 95 Room Air 02/15/20 10:09 21 Capillary Refill : Less Than 3 SecondsLess Than 3 Seconds General Appearance: No Apparent Distress, WD/WN, Chronically ill HEENT: PERRL/EOMI, Normal ENT Inspection, Pharynx Normal Neck: Full Range of Motion, Normal Inspection, Non Tender, Supple, Carotid Bruit Respiratory: Chest Non Tender, Lungs Clear, Normal Breath Sounds, No Accessory Muscle Use, No Respiratory Distress Cardiovascular: Regular Rate, Rhythm, No Edema, No Gallop, No JVD, No Murmur, Normal Peripheral Pulses Gastrointestinal: Normal Bowel Sounds, No Organomegaly, No Pulsatile Mass, Non Tender, Soft Back: Normal Inspection, No CVA Tenderness, No Vertebral Tenderness Extremity: Normal Capillary Refill, Normal Inspection, Normal Range of Motion (except right leg), Non Tender, No Calf Tenderness, No Pedal Edema Neurologic/Psychiatric: Alert, Oriented x3, No Motor/Sensory Deficits, Normal Mood/Affect, Abnormal Gait, Motor Weakness (right leg) Skin: Normal Color, Warm/Dry Lymphatic: No Adenopathy Results/Procedures Lab Patient resulted labs reviewed. FIM Transfers Therapy Code Descriptions/Definitions Functional [place] Measure: 0=Not Assessed/NA 4=Minimal Assistance 1=Total Assistance 5=Supervision or Setup 2=Maximal Assistance 6=Modified [place] 3=Moderate Assistance 7=Complete IndependenceSCALE: Activities may be completed with or without assistive devices. 4-Qguytydsio-ifvgpdd completes the activity by him/herself with no assistance from a helper. 5-Set-up or Clean-up Assistance-helper sets up or cleans up; patient completes activity. [place] assists only prior to or following the activity. 4-Supervision or Touching Assistance-helper provides verbal cues and/or touching/steadying and/or contact guard assistance as patient completes activity. Assistance may be provided throughout the activity or intermittently. 3-Partial/Moderate Assistance-helper does LESS THAN HALF the effort. [place] lifts, holds or supports trunk or limbs, but provides less than half the effort. 2-Substantial/Maximal Assistance-helper does MORE THAN HALF the effort. [place] lifts or holds trunk or limbs and provides more than half the effort. 9-Khweqaebu-xsgevz does ALL the effort. Patient does none of the effort to complete the activity. Or, the assistance of 2 or more helpers is required for the patient to complete the activity. If activity was not attempted, code reason: 7-Patient Refused. 9-Not Applicable-not attempted and the patient did not perform the activity before the current illness, exacerbation or injury. 10-Not Attempted due to Environmental Limitations-(lack of equipment, weather restraints, etc.). 88-Not Attempted due to Medical Conditions or Safety Concerns. Roll Left to Right (QC): 6 Sit to Lying (QC): 3 Sit to Stand (QC): 4 Chair/Wvc-nd-Scasu Xfer(QC): 3 Car Transfer (QC): 2 Gait Training Does the Patient Walk?: Yes Distance: 40' Walk 10 feet (QC): 4 Walk 50 ft with 2 Turns(QC): 4 Walk 150 ft (QC): 3 Walking 10ft/uneven surface-QC: 88 Gait Persons Needed: 1 Gait Assistive Device: FWW Wheelchair Training Does the Pt Use a Wheelchair?: Yes Distance: SEE PT GOALS Wheel 50 ft with 2 turns (QC): 5 Wheel 150 ft (QC): 5 Type of Wheelchair: Manual Stair Training 1 Step (curb) (QC): 88 4 Steps (QC): 88 12 Steps (QC): 88 Balance Picking up an Object (QC): 88 ADL-Treatment Eating (QC): 6 Oral Hygiene (QC): 7 Bathing Location: L Arm, R Arm, L Upper Leg, R Upper Leg, L Lower Leg (including foot), Chest, Abdomen, Buttocks, Perineal Area Shower/Bathe Self (QC): 3 (min A for R foot and thoroughness for bottom hygiene. Pt completes with increased time, able to stand and complete bottom hygiene with good balance.) Upper Body Dressing (QC): 5 (s/u) Lower Body Dressing (QC): 4 (SBA while EOB with cues for use of dressing stick.) On/Off Footwear (QC): 4 (cues for donning/ doffing R boot. Completes with increased time. Pt able to doff/ don L sock with SBA.) Toileting Hygiene (QC): 4 (Pt has BM, completes toilet hygiene in sit with SBA. Pt requires assist for thoroughness. CGA in stance during BM cleaning.) Toilet Transfer (QC): 4 (CGA. Pt able to sit to stand from higher commode surface with cues for hand positioning and CGA.) Assessment/Plan Assessment and Plan Assess & Plan/Chief Complaint Assessment: Right distal fibula fracture Alcoholism Smoker Memory loss HTN HLP Rhabdomyolysis Hypokalemia Tobacco user Plan: IRF protocol Pain meds ETOH w/d protocol HLIVF Replace potassium Patient may very well leave against medical advice Keep right leg in walking boot Needs NH or AL but refuses May need to be discharged home with family care as he wishes Tobacco cessation discussed (1) Closed right fibular fracture Status: Acute (2) Smoker (3) Alcohol abuse (4) Cognitive deficits (5) Fall Status: Acute (6) Physical debility Status: Acute (7) Cellulitis of groin Status: Acute (8) Prostate cancer Status: Acute KAVON DRIVER DO Feb 19, 2020 09:10
--- NOTE | 2020-02-19 09:44 | PM&R Progress Note ---
Subjective HPI/CC On Admission Date Seen by Provider: Feb 19, 2020 Time Seen by Provider: 09:15 Subjective/Events-last exam He refuses therapy most of the time Wants to go home Family concerned about him living alone so unsure how we will manage this Had a bowel movement 1 day ago and that part is going well Pain is well controlled Checked meds and lab Conferred with RN Reviewed therapy notes Objective Exam Vital Signs Vital Signs Date Time Temp Pulse Resp B/P (MAP) Pulse Ox O2 Delivery O2 Flow Rate FiO2 02/19/20 05:38 36.4 88 20 109/65 (80) 97 Room Air 02/15/20 10:09 21 Capillary Refill : Less Than 3 SecondsLess Than 3 Seconds General Appearance: No Apparent Distress, WD/WN, Chronically ill HEENT: PERRL/EOMI, Normal ENT Inspection, Pharynx Normal Neck: Full Range of Motion, Normal Inspection, Non Tender, Supple, Carotid Bruit Respiratory: Chest Non Tender, Lungs Clear, Normal Breath Sounds, No Accessory Muscle Use, No Respiratory Distress Cardiovascular: Regular Rate, Rhythm, No Edema, No Gallop, No JVD, No Murmur, Normal Peripheral Pulses Gastrointestinal: Normal Bowel Sounds, No Organomegaly, No Pulsatile Mass, Non Tender, Soft Back: Normal Inspection, No CVA Tenderness, No Vertebral Tenderness Extremity: Normal Capillary Refill, Normal Inspection, Normal Range of Motion (except right leg), Non Tender, No Calf Tenderness, No Pedal Edema Neurologic/Psychiatric: Alert, Oriented x3, No Motor/Sensory Deficits, Normal Mood/Affect, Abnormal Gait, Motor Weakness (right leg) Skin: Normal Color, Warm/Dry Lymphatic: No Adenopathy Results/Procedures Lab Patient resulted labs reviewed. FIM Transfers Therapy Code Descriptions/Definitions Functional [place] Measure: 0=Not Assessed/NA 4=Minimal Assistance 1=Total Assistance 5=Supervision or Setup 2=Maximal Assistance 6=Modified [place] 3=Moderate Assistance 7=Complete IndependenceSCALE: Activities may be completed with or without assistive devices. 2-Ampzwprttu-rkveeja completes the activity by him/herself with no assistance from a helper. 5-Set-up or Clean-up Assistance-helper sets up or cleans up; patient completes activity. [place] assists only prior to or following the activity. 4-Supervision or Touching Assistance-helper provides verbal cues and/or touching/steadying and/or contact guard assistance as patient completes activity. Assistance may be provided throughout the activity or intermittently. 3-Partial/Moderate Assistance-helper does LESS THAN HALF the effort. [place] lifts, holds or supports trunk or limbs, but provides less than half the effort. 2-Substantial/Maximal Assistance-helper does MORE THAN HALF the effort. [place] lifts or holds trunk or limbs and provides more than half the effort. 7-Wclswacnx-onejdu does ALL the effort. Patient does none of the effort to complete the activity. Or, the assistance of 2 or more helpers is required for the patient to complete the activity. If activity was not attempted, code reason: 7-Patient Refused. 9-Not Applicable-not attempted and the patient did not perform the activity before the current illness, exacerbation or injury. 10-Not Attempted due to Environmental Limitations-(lack of equipment, weather restraints, etc.). 88-Not Attempted due to Medical Conditions or Safety Concerns. Roll Left to Right (QC): 6 Sit to Lying (QC): 3 Sit to Stand (QC): 4 Chair/Lop-wh-Riusi Xfer(QC): 3 Car Transfer (QC): 2 Gait Training Does the Patient Walk?: Yes Distance: 40' Walk 10 feet (QC): 4 Walk 50 ft with 2 Turns(QC): 4 Walk 150 ft (QC): 3 Walking 10ft/uneven surface-QC: 88 Gait Persons Needed: 1 Gait Assistive Device: FWW Wheelchair Training Does the Pt Use a Wheelchair?: Yes Distance: SEE PT GOALS Wheel 50 ft with 2 turns (QC): 5 Wheel 150 ft (QC): 5 Type of Wheelchair: Manual Stair Training 1 Step (curb) (QC): 88 4 Steps (QC): 88 12 Steps (QC): 88 Balance Picking up an Object (QC): 88 ADL-Treatment Eating (QC): 6 Oral Hygiene (QC): 7 Bathing Location: L Arm, R Arm, L Upper Leg, R Upper Leg, L Lower Leg (including foot), Chest, Abdomen, Buttocks, Perineal Area Shower/Bathe Self (QC): 3 (min A for R foot and thoroughness for bottom hygiene. Pt completes with increased time, able to stand and complete bottom hygiene with good balance.) Upper Body Dressing (QC): 5 (s/u) Lower Body Dressing (QC): 4 (SBA while EOB with cues for use of dressing stick.) On/Off Footwear (QC): 4 (cues for donning/ doffing R boot. Completes with increased time. Pt able to doff/ don L sock with SBA.) Toileting Hygiene (QC): 4 (Pt has BM, completes toilet hygiene in sit with SBA. Pt requires assist for thoroughness. CGA in stance during BM cleaning.) Toilet Transfer (QC): 4 (CGA. Pt able to sit to stand from higher commode surface with cues for hand positioning and CGA.) Assessment/Plan Assessment and Plan Assess & Plan/Chief Complaint Assessment: Right distal fibula fracture Alcoholism Smoker Memory loss HTN HLP Rhabdomyolysis Hypokalemia Plan: IRF protocol Pain meds ETOH w/d protocol HLIVF Replace potassium Patient may very well leave against medical advice Keep right leg in walking boot Needs NH or AL but refuses May need to be discharged home with family care as he wishes (1) Closed right fibular fracture Status: Acute (2) Smoker (3) Alcohol abuse (4) Cognitive deficits (5) Fall Status: Acute (6) Physical debility Status: Acute (7) Cellulitis of groin Status: Acute (8) Prostate cancer Status: Acute KAVON DRIVER DO Feb 19, 2020 09:44
--- NOTE | 2020-02-19 11:05 | Occupational Ther Daily Note ---
OT Current Status-Daily Note Subjective Pt sleeping in recliner, woke to name. Pt stated that he was tired, encouraged pt to move around to gain energy. Pt agrees to therapy. Mental Status/Objective Patient Orientation: Person, Place, Time, Situation ADL-Treatment Pt declined shower. Encouraged pt to change shirt and sponge bath. Mod A for sit to stand from recliner. CGA to ambulate to bathroom. Pt sat at sink to complete grooming, oral care and cleansed upper body (declined lower body). After setup, pt able to dress upper body. Pt took increased time to complete all tasks. Pt able to place urinal, assist to empty. After session, pt sitting in recliner with call light/phone in reach. All needs met in room. Therapy Code Descriptions/Definitions Functional [place] Measure: 0=Not Assessed/NA 4=Minimal Assistance 1=Total Assistance 5=Supervision or Setup 2=Maximal Assistance 6=Modified [place] 3=Moderate Assistance 7=Complete IndependenceSCALE: Activities may be completed with or without assistive devices. 8-Wmiumyomhb-eraatzt completes the activity by him/herself with no assistance from a helper. 5-Set-up or Clean-up Assistance-helper sets up or cleans up; patient completes activity. [place] assists only prior to or following the activity. 4-Supervision or Touching Assistance-helper provides verbal cues and/or touching/steadying and/or contact guard assistance as patient completes activity. Assistance may be provided throughout the activity or intermittently. 3-Partial/Moderate Assistance-helper does LESS THAN HALF the effort. [place] lifts, holds or supports trunk or limbs, but provides less than half the effort. 2-Substantial/Maximal Assistance-helper does MORE THAN HALF the effort. [place] lifts or holds trunk or limbs and provides more than half the effort. 7-Pthentzli-awrrty does ALL the effort. Patient does none of the effort to complete the activity. Or, the assistance of 2 or more helpers is required for the patient to complete the activity. If activity was not attempted, code reason: 7-Patient Refused. 9-Not Applicable-not attempted and the patient did not perform the activity before the current illness, exacerbation or injury. 10-Not Attempted due to Environmental Limitations-(lack of equipment, weather restraints, etc.). 88-Not Attempted due to Medical Conditions or Safety Concerns. Oral Hygiene (QC): 6 Upper Body Dressing (QC): 5 OT Short Term Goals Short Term Goals Time Frame: Feb 19, 2020 Shower/bathe self: 3 Upper body dressin Lower body dressin OT Correction Warden Goals Senior Living Goals Time Frame: Feb 26, 2020 Eating (QC): 6 Oral Hygiene (QC): 6 Toileting Hygiene (QC): 6 Shower/Bathe Self (QC): 6 Upper Body Dressing (QC): 6 Lower Body Dressing (QC): 6 On/Off Footwear (QC): 6 Additional Goals: 1-Demonstrate ADL Tasks, 2-Verbalize Understanding, 3- ImproveStrength/Tiff 1=Demonstrate adherence to instructed precautions during ADL tasks. 2=Patient will verbalize/demonstrate understanding of assistive devices/modifica tions for ADL. 3=Patient will improve strength/tolerance for activity to enable patient to perform ADL's. OT Education/Plan Problem List/Assessment Assessment: Decreased Activ Tolerance, Impaired Self-Care Skills Discharge Recommendations Plan/Recommendations: Continue POC Treatment Plan/Plan of Care Patient would benefit from OT for education, treatment and training to promote independence in ADL's, mobility, safety and/or upper extremity function for ADL's. Plan of Care: ADL Retraining, Caregiver Training, Concurrent Therapy, Functional Mobility, Group Exercise/Act as Ind, UE Funct Exercise/Act, W/C Management Training Treatment Duration: Feb 26, 2020 Frequency: At least 5 of 7 days/Wk (IRF) Estimated Hrs Per Day: 1.5 hours per day Agreement: Yes Rehab Potential: Fair Time/GCodes Start Time: 10:00 Stop Time: 11:00 Total Time Billed (hr/min): 60 Billed Treatment Time 1 visit-ADL 4 (60 min) LEE DESIR Feb 19, 2020 11:05
--- NOTE | 2020-02-19 11:18 | Physical Therapy Progress Note ---
Therapy Progress Note Patient refuses to participate in physical therapy today. PT encouraged patient to participate for about 10-15 min, explaining the benefits of therapy and the desire to improve his functional mobility so he can be independent at home. Patient continues to refuse stating he is too tired and he can't do it. ANGEL BUSH PT Feb 19, 2020 11:18
--- NOTE | 2020-02-19 13:25 | Physical Therapy Daily Note ---
PT Daily Note-Current Subjective Patient in recliner pre tx, agrees to PT reluctantly, has 8/10 pain in his right ankle. Appearance Patient in recliner post tx with nurse call, phone, tray, all needs met. Mental Status Patient Orientation: Person, Place, Situation right boot Transfers SCALE: Activities may be completed with or without assistive devices. 1-Qsyxgkzsje-wczpyot completes the activity by him/herself with no assistance from a helper. 5-Set-up or Clean-up Assistance-helper sets up or cleans up; patient completes activity. [place] assists only prior to or following the activity. 4-Supervision or Touching Assistance-helper provides verbal cues and/or touching/steadying and/or contact guard assistance as patient completes activity. Assistance may be provided throughout the activity or intermittently. 3-Partial/Moderate Assistance-helper does LESS THAN HALF the effort. [place] lifts, holds or supports trunk or limbs, but provides less than half the effort. 2-Substantial/Maximal Assistance-helper does MORE THAN HALF the effort. [place] lifts or holds trunk or limbs and provides more than half the effort. 8-Xffomntrc-mbnxai does ALL the effort. Patient does none of the effort to complete the activity. Or, the assistance of 2 or more helpers is required for the patient to complete the activity. If activity was not attempted, code reason: 7-Patient Refused. 9-Not Applicable-not attempted and the patient did not perform the activity before the current illness, exacerbation or injury. 10-Not Attempted due to Environmental Limitations-(lack of equipment, weather restraints, etc.). 88-Not Attempted due to Medical Conditions or Safety Concerns. Sit to Stand (QC): 4 Chair/Adg-oh-Sxijh Xfer(QC): 4 CGA, cues for hand placement and positioning Weight Bearing Right Lower Extremity: Right Weight Bearing/Tolerated cam boot on the right side Gait Training Distance: 120'x2 Walk 10 feet (QC): 4 Walk 50 ft with 2 Turns(QC): 4 Gait Persons Needed: 1 Gait Assistive Device: FWW slow but steady ambulation, less weight bearing on right leg, antalgic Exercises Seated Therapy Exercises: Ankle pumps (toe flex/ext on the right side), Long arc quads, Hip flexion, Hip abd/add Seated Reps: 20 Treatments transfers, ambulation, LE exercise Assessment Current Status: Poor Progress Patient SOB with ambulation, needs rest breaks frequently due to fatigue. PT Short Term Goals Short Term Goals Time Frame: Feb 19, 2020 Roll Left & Right: 6 Sit to lyin Lying to sitting on side of be: 6 Sit to stand: 3 Chair/xqn-it-stune transfer: 3 Walk 10 feet: 3 PT Beating Machine Operator Goals Beating Machine Operator Goals PT Retirement Goals Time Frame: Mar 04, 2020 Roll Left & Right (QC): 6 Sit to Lying (QC): 6 Lying-Sitting on Side/Bed(QC): 6 Sit to Stand (QC): 4 Chair/Svf-ei-Khihl Xfer(QC): 4 Toilet Transfer (QC): 4 Car Transfer (QC): 4 Does the Patient Walk: Yes Walk 10 feet (QC): 4 Walk 50ft with 2 Turns (QC): 4 Walk 150 ft (QC): 88 Walking 10ft on Uneven Surface: 88 1 Step (curb) (QC): 4 4 Steps (QC): 4 12 Steps (QC): 88 Picking up an Object (QC): 88 Wheel 50 feet with 2 turns (QC: 6 Wheel 150 feet: 6 PT Plan Problem List Problem List: Activity Tolerance, Functional Strength, Safety, Balance, Gait, Transfer, Bed Mobility, ROM Treatment/Plan Treatment Plan: Continue Plan of Care Treatment Plan: Bed Mobility, Education, Functional Activity Tiff, Functional Strength, Group Therapy, Gait, Safety, Therapeutic Exercise, Transfers Treatment Duration: Mar 04, 2020 Frequency: At least 5 of 7 days/Wk (IRF) Estimated Hrs Per Day: 1.5 hours per day Patient and/or Family Agrees t: Yes Safety Risks/Education Patient Education: Gait Training, Transfer Techniques, Correct Positioning, Safety Issues Teaching Recipient: Patient Teaching Methods: Demonstration, Discussion Response to Teaching: Reinforcement Needed Time/GCodes Time In: 1300 Time Out: 1330 Total Billed Treatment Time: 30 Total Billed Treatment 1 visit GT 15' EX 15' ANGEL BUSH PT Feb 19, 2020 13:25
--- NOTE | 2020-02-19 13:43 | Occupational Ther Daily Note ---
OT Current Status-Daily Note Subjective Pt alert, sitting in recliner. Pt agrees to therapy. Mental Status/Objective Patient Orientation: Person, Place, Time, Situation ADL-Treatment Pt using urinal when KINGSLEY entered room. Pt able to place and use urinal by self, assist to empty. Therapy Code Descriptions/Definitions Functional [place] Measure: 0=Not Assessed/NA 4=Minimal Assistance 1=Total Assistance 5=Supervision or Setup 2=Maximal Assistance 6=Modified [place] 3=Moderate Assistance 7=Complete IndependenceSCALE: Activities may be completed with or without assistive devices. 0-Lqyzncykxh-tfrcnor completes the activity by him/herself with no assistance from a helper. 5-Set-up or Clean-up Assistance-helper sets up or cleans up; patient completes activity. [place] assists only prior to or following the activity. 4-Supervision or Touching Assistance-helper provides verbal cues and/or touching/steadying and/or contact guard assistance as patient completes activity. Assistance may be provided throughout the activity or intermittently. 3-Partial/Moderate Assistance-helper does LESS THAN HALF the effort. [place] lifts, holds or supports trunk or limbs, but provides less than half the effort. 2-Substantial/Maximal Assistance-helper does MORE THAN HALF the effort. [place] lifts or holds trunk or limbs and provides more than half the effort. 8-Ronjzwpji-ekqxty does ALL the effort. Patient does none of the effort to complete the activity. Or, the assistance of 2 or more helpers is required for the patient to complete the activity. If activity was not attempted, code reason: 7-Patient Refused. 9-Not Applicable-not attempted and the patient did not perform the activity before the current illness, exacerbation or injury. 10-Not Attempted due to Environmental Limitations-(lack of equipment, weather restraints, etc.). 88-Not Attempted due to Medical Conditions or Safety Concerns. Other Treatment Medium resistive theraband exercises for B UE completed. Skilled instruction required for correct technique and positioning during exercises. Pt completed 2 sets 10 reps of 6 exercises. After session, pt stated that he had to use the urinal again. All needs met in room. OT Short Term Goals Short Term Goals Time Frame: Feb 19, 2020 Shower/bathe self: 3 Upper body dressin Lower body dressin OT Laboratory Geneticist Goals Skilled Nursing Goals Time Frame: Feb 26, 2020 Eating (QC): 6 Oral Hygiene (QC): 6 Toileting Hygiene (QC): 6 Shower/Bathe Self (QC): 6 Upper Body Dressing (QC): 6 Lower Body Dressing (QC): 6 On/Off Footwear (QC): 6 Additional Goals: 1-Demonstrate ADL Tasks, 2-Verbalize Understanding, 3-ImproveStrength/Tiff 1=Demonstrate adherence to instructed precautions during ADL tasks. 2=Patient will verbalize/demonstrate understanding of assistive devices/modifications for ADL. 3=Patient will improve strength/tolerance for activity to enable patient to perform ADL's. OT Education/Plan Problem List/Assessment Assessment: Decreased Activ Tolerance, Decreased UE Strength, Impaired Self- Care Skills Discharge Recommendations Plan/Recommendations: Continue POC Treatment Plan/Plan of Care Patient would benefit from OT for education, treatment and training to promote independence in ADL's, mobility, safety and/or upper extremity function for ADL's. Plan of Care: ADL Retraining, Caregiver Training, Concurrent Therapy, Functional Mobility, Group Exercise/Act as Ind, UE Funct Exercise/Act, W/C Management Training Treatment Duration: Feb 26, 2020 Frequency: At least 5 of 7 days/Wk (IRF) Estimated Hrs Per Day: 1.5 hours per day Agreement: Yes Rehab Potential: Fair Time/GCodes Start Time: 13:40 Stop Time: 13:55 Total Time Billed (hr/min): 15 Billed Treatment Time 1 visit-FA 1 (15 min) LEE DESIR Feb 19, 2020 13:43
--- NOTE | 2020-02-19 14:42 | Physical Therapy Progress Note ---
Therapy Progress Note Patient was given the opportunity to make up some physical therapy that he refused from this morning. He declined. He says "no, i'm shot". He says he is too tired to participate. Patient refused 2/3 of his physical therapy today. He was educated on the benefits of therapy and continued to refuse. Will try again in the morning. ANGEL BUSH PT Feb 19, 2020 14:42
--- NOTE | 2020-02-19 14:54 | Speech Therapy Daily Note ---
Speech Daily Progress Note Subjective Date Seen by Provider: Feb 19, 2020 Time Seen by Provider: 00:30 Patient was sitting in his recliner when I entered his room. Patient states he is ready to go home. Objective Patient completed a series of safety awareness tasks related to his return home at 85% with minimal cues. Assessment Assessment Current Status: Good Progress Treatment Plan Continue Plan of Care Speech Short Term Goals Short Term Goals Short Term Goals 1) Patient will complete memory tasks related to his daily needs at 90% or greater. 2) Patient will complete problem solving tasks related to his daily needs at 90% or greater. 3) Patient will complete safety awareness tasks related to his daily needs at 90% or greater. Speech Telephone Service Adviser Goals Skilled Nursing Goals Patient will improve cognitive communication necessary for safety and daily living tasks with minimal assist. Speech-Plan Patient/Family Goals Patient/Family Goals: Patient plans on returning to his home with assistance upon discharge. Treatment Plan Speech Therapy Treatment Plan: Continue Plan of Care Treatment Duration: Feb 14, 2020 Frequency: 5 times per week Estimated Hrs Per Day: .5 hour per day Rehab Potential: Fair Barriers to Learning: Patient's medical status, cognitive deficits Pt/Family Agrees to Plan: Yes Safety Risks/Education Teaching Recipient: Patient Teaching Methods: Demonstration, Discussion Response to Teaching: Verbalize Understanding, Return Demonstration Education Topics Provided: Safety upon his return home Time Speech Therapy Time In: 14:15 Speech Therapy Time Out: 14:45 Total Billed Time: 30 Billed Treatment Time 1TEMI [address] Feb 19, 2020 14:54
--- NOTE | 2020-02-19 16:06 | NUR ---
CM/SS DISCHARGE PLANNING Contacted LEV/Kelly Russ for their choice facilities. Contacted all 3 options and referrals were faxed, await confirmation of acceptance/denial: [facility], [facility] Assisted Forensic Toxicologist: Ame FX: [phone] PH: [phone] or [phone] They will require they come assess patient in person and are willing to travel from [place] to do this, based on their initial review of the clinical information provided. [facility] Forensic Toxicologist: Cora Angelica FX: [phone] PH: [phone] [facility] [place] Forensic Toxicologist: Yumiko Rodriguez FX: [phone] PH: [phone] Directed family to Medicare.gov to Medicare Compare for more options in their general area.
[2020-02-19 18:52] VITALS: BP 114/74
[2020-02-19] MEDS: ENOXAPARIN 40 MG/0.4 ML (LOVENOX) SYR SC SCH (20:45)
[2020-02-20 05:15] VITALS: BP 123/69
--- NOTE | 2020-02-20 06:14 | PM&R Progress Note ---
Subjective HPI/CC On Admission Date Seen by Provider: Feb 20, 2020 Time Seen by Provider: 09:15 Subjective/Events-last exam Refusing therapy Awaiting alf placement at [facility] where his son lives Bowels are moving okay Getting up to go to the toilet instead of using a urinal which is good Decreasing pain medication Overall very difficult personality Checked meds and lab Conferred with RN Reviewed therapy notes Review of Systems General: Fatigue, Malaise Musculoskeletal: leg pain Neurological: Confusion Objective Exam Vital Signs Vital Signs Date Time Temp Pulse Resp B/P (MAP) Pulse Ox O2 Delivery O2 Flow Rate FiO2 02/20/20 18:00 37.0 109 18 120/72 (88) 95 Room Air 02/15/20 10:09 21 Capillary Refill : Less Than 3 SecondsLess Than 3 Seconds General Appearance: No Apparent Distress, WD/WN, Chronically ill HEENT: PERRL/EOMI, Normal ENT Inspection, Pharynx Normal Neck: Full Range of Motion, Normal Inspection, Non Tender, Supple, Carotid Bruit Respiratory: Chest Non Tender, Lungs Clear, Normal Breath Sounds, No Accessory Muscle Use, No Respiratory Distress Cardiovascular: Regular Rate, Rhythm, No Edema, No Gallop, No JVD, No Murmur, Normal Peripheral Pulses Gastrointestinal: Normal Bowel Sounds, No Organomegaly, No Pulsatile Mass, Non Tender, Soft Back: Normal Inspection, No CVA Tenderness, No Vertebral Tenderness Extremity: Normal Capillary Refill, Normal Inspection, Normal Range of Motion (except right leg), Non Tender, No Calf Tenderness, No Pedal Edema Neurologic/Psychiatric: Alert, Oriented x3, No Motor/Sensory Deficits, Normal Mood/Affect, Abnormal Gait, Motor Weakness (right leg) Skin: Normal Color, Warm/Dry Lymphatic: No Adenopathy Results/Procedures Lab Patient resulted labs reviewed. FIM Transfers Therapy Code Descriptions/Definitions Functional [place] Measure: 0=Not Assessed/NA 4=Minimal Assistance 1=Total Assistance 5=Supervision or Setup 2=Maximal Assistance 6=Modified [place] 3=Moderate Assistance 7=Complete IndependenceSCALE: Activities may be completed with or without assistive devices. 9-Idyogdbztw-elzzoon completes the activity by him/herself with no assistance from a helper. 5-Set-up or Clean-up Assistance-helper sets up or cleans up; patient completes activity. [place] assists only prior to or following the activity. 4-Supervision or Touching Assistance-helper provides verbal cues and/or touching/steadying and/or contact guard assistance as patient completes activity. Assistance may be provided throughout the activity or intermittently. 3-Partial/Moderate Assistance-helper does LESS THAN HALF the effort. [place] lifts, holds or supports trunk or limbs, but provides less than half the effort. 2-Substantial/Maximal Assistance-helper does MORE THAN HALF the effort. [place] lifts or holds trunk or limbs and provides more than half the effort. 2-Sfmcsjauk-kfhpvb does ALL the effort. Patient does none of the effort to complete the activity. Or, the assistance of 2 or more helpers is required for the patient to complete the activity. If activity was not attempted, code reason: 7-Patient Refused. 9-Not Applicable-not attempted and the patient did not perform the activity before the current illness, exacerbation or injury. 10-Not Attempted due to Environmental Limitations-(lack of equipment, weather restraints, etc.). 88-Not Attempted due to Medical Conditions or Safety Concerns. Roll Left to Right (QC): 6 Sit to Lying (QC): 3 Sit to Stand (QC): 4 Chair/Nxy-yt-Uvwrt Xfer(QC): 4 Car Transfer (QC): 2 Gait Training Does the Patient Walk?: Yes Distance: 120'x2 Walk 10 feet (QC): 4 Walk 50 ft with 2 Turns(QC): 4 Walk 150 ft (QC): 3 Walking 10ft/uneven surface-QC: 88 Gait Persons Needed: 1 Gait Assistive Device: FWW Wheelchair Training Does the Pt Use a Wheelchair?: Yes Distance: SEE PT GOALS Wheel 50 ft with 2 turns (QC): 5 Wheel 150 ft (QC): 5 Type of Wheelchair: Manual Stair Training 1 Step (curb) (QC): 88 4 Steps (QC): 88 12 Steps (QC): 88 Balance Picking up an Object (QC): 88 ADL-Treatment Eating (QC): 6 Oral Hygiene (QC): 6 Bathing Location: L Arm, R Arm, L Upper Leg, R Upper Leg, L Lower Leg (including foot), Chest, Abdomen, Buttocks, Perineal Area Shower/Bathe Self (QC): 3 (min A for R foot and thoroughness for bottom hygiene. Pt completes with increased time, able to stand and complete bottom hygiene with good balance.) Upper Body Dressing (QC): 5 Lower Body Dressing (QC): 4 (SBA while EOB with cues for use of dressing stick.) On/Off Footwear (QC): 4 (cues for donning/ doffing R boot. Completes with increased time. Pt able to doff/ don L sock with SBA.) Toileting Hygiene (QC): 4 (Pt has BM, completes toilet hygiene in sit with SBA. Pt requires assist for thoroughness. CGA in stance during BM cleaning.) Toilet Transfer (QC): 4 (CGA. Pt able to sit to stand from higher commode surface with cues for hand positioning and CGA.) Assessment/Plan Assessment and Plan Assess & Plan/Chief Complaint Assessment: Right distal fibula fracture Alcoholism Smoker Memory loss HTN HLP Rhabdomyolysis Hypokalemia Tobacco user Plan: IRF protocol Pain meds ETOH w/d protocol now beyond that HLIVF Replaced potassium Patient may very well leave against medical advice Keep right leg in walking boot Needs NH at [facility] where his son lives Tobacco cessation discussed (1) Closed right fibular fracture Status: Acute (2) Smoker (3) Alcohol abuse (4) Cognitive deficits (5) Fall Status: Acute (6) Physical debility Status: Acute (7) Cellulitis of groin Status: Acute (8) Prostate cancer Status: Acute KAVON DRIVER DO Feb 20, 2020 06:14
[2020-02-20] MEDS: KCL 10 MEQ TAB (MICRO K) PO SCH (06:38)
[2020-02-20] MEDS: THIAMINE 100 MG (VITAMIN B-1) TAB PO SCH (06:38)
[2020-02-20] MEDS: MULTIVIT W/MINERALS TAB (THERAGRAN M) PO SCH (06:38)
--- NOTE | 2020-02-20 09:53 | Speech Therapy Daily Note ---
Speech Daily Progress Note Subjective Date Seen by Provider: Feb 20, 2020 Time Seen by Provider: 00:30 Patient was resting in his recliner following his breakfast when I entered his room. Objective Patient completed a series of questions related to his daily needs upon his return home: cooking, cleaning ADL's with 90% given minimal cues. Assessment Assessment Current Status: Good Progress Treatment Plan Continue Plan of Care Speech Short Term Goals Short Term Goals Short Term Goals 1) Patient will complete memory tasks related to his daily needs at 90% or greater. 2) Patient will complete problem solving tasks related to his daily needs at 90% or greater. 3) Patient will complete safety awareness tasks related to his daily needs at 90% or greater. Speech Counselling Psychologist Goals Counselling Psychologist Goals Patient will improve cognitive communication necessary for safety and daily living tasks with minimal assist. Speech-Plan Patient/Family Goals Patient/Family Goals: Patient plans on returning to his home where he lives alone upon discharge. Treatment Plan Speech Therapy Treatment Plan: Continue Plan of Care Treatment Duration: Feb 14, 2020 Frequency: 5 times per week Estimated Hrs Per Day: .5 hour per day Rehab Potential: Fair Barriers to Learning: Patient's medical status, decreased willingness to participate with therapy Pt/Family Agrees to Plan: Yes Safety Risks/Education Teaching Recipient: Patient Teaching Methods: Demonstration, Discussion Response to Teaching: Verbalize Understanding, Return Demonstration Education Topics Provided: Continued safety upon his return home Time Speech Therapy Time In: 09:00 Speech Therapy Time Out: 09:30 Total Billed Time: 30 Billed Treatment Time 1TEMI B[address] ST Feb 20, 2020 09:53
[2020-02-20] MEDS: DOCUSATE SODIUM 100 MG (COLACE) CAP PO SCH ×2 (09:57→19:29)
[2020-02-20] MEDS: FOLIC ACID 1 MG TAB PO SCH (09:57)
[2020-02-20] MEDS: MAGNESIUM OXIDE (MAG-OX)400 MG TAB PO SCH ×2 (09:57→20:02)
[2020-02-20] MEDS: polyethylene glycoL POWDER 17 GM (MIRALAX) PACK PO SCH ×2 (09:57→19:29)
[2020-02-20] MEDS: SENNA W/DOCUSATE (SENOKOT S) TABLET PO SCH ×2 (09:57→19:29)
--- NOTE | 2020-02-20 10:51 | Occupational Ther Daily Note ---
OT Current Status-Daily Note Subjective Pt seated in recliner, required mod encouragement to participate in ADL session on this date. Pt appeared forgetful, asking multiple times throughout the session what he is supposed to be doing. Mental Status/Objective Patient Orientation: Confused ADL-Treatment Therapy Code Descriptions/Definitions Functional [place] Measure: 0=Not Assessed/NA 4=Minimal Assistance 1=Total Assistance 5=Supervision or Setup 2=Maximal Assistance 6=Modified [place] 3=Moderate Assistance 7=Complete IndependenceSCALE: Activities may be completed with or without assistive devices. 7-Vekwgprfdp-rkydspr completes the activity by him/herself with no assistance from a helper. 5-Set-up or Clean-up Assistance-helper sets up or cleans up; patient completes activity. [place] assists only prior to or following the activity. 4-Supervision or Touching Assistance-helper provides verbal cues and/or touching/steadying and/or contact guard assistance as patient completes activity. Assistance may be provided throughout the activity or intermittently. 3-Partial/Moderate Assistance-helper does LESS THAN HALF the effort. [place] lifts, holds or supports trunk or limbs, but provides less than half the effort. 2-Substantial/Maximal Assistance-helper does MORE THAN HALF the effort. [place] lifts or holds trunk or limbs and provides more than half the effort. 6-Avxlovbrr-beccum does ALL the effort. Patient does none of the effort to complete the activity. Or, the assistance of 2 or more helpers is required for the patient to complete the activity. If activity was not attempted, code reason: 7-Patient Refused. 9-Not Applicable-not attempted and the patient did not perform the activity before the current illness, exacerbation or injury. 10-Not Attempted due to Environmental Limitations-(lack of equipment, weather restraints, etc.). 88-Not Attempted due to Medical Conditions or Safety Concerns. Shower/Bathe Self (QC): 3 (Min A sponge bath, pt required assistance washing BLE feet, and R lower leg. ) Upper Body Dressing (QC): 5 (set up) Lower Body Dressing (QC): 4 (CGA in standing at FWW, pt able to don/doff pants with key carrier) On/Off Footwear: 2 (Pt states he does not know how to don/doff the boot on his R foot. Pt required total assistance with his boot, and assistance with compression sock on L foot.) Toileting Hygiene (QC): 4 (CGA, pt able to manage clothing up/down, and complete hygiene after BM. ) Toilet Transfer (QC): 4 (CGA on/off BSC) Pt required increased time with all ADLs due to pain and stating he was not sure what he was supposed to be doing. Other Treatment Pt seated in recliner, stating he needed to use the urinal. OT educated pt on plans for tx this date, he replied he would prefer OT to come back later. OT educated pt on purpose/benefits of OT, stating this OT is only available at this time to work with him. Pt required mod encouragement to participate in tx. Pt agreeable to sponge bath, OT gathered ADL supplies and set up in the bathroom. Pt transferred sit to stand from recliner with min A, then ambulated to the restroom using FWW and CGA. Pt standing at sink, stating he needed to use commode, OT brought commode behind pt and he managed clothing. Pt completed toileting, then sponge bath/dressing at commode. OT assisted pt with all parts of donning/doffing boot due to pt stating he does not know how to do it, and when he attempted to bend forward he states he cannot reach. Pt returned to his recliner where OT assisted with donning clean compression sock. OT cleaned up from ADL session. Post OT tx, pt seated in recliner, call light in reach and all needs met. Education OT Patient Education: Correct positioning, Energy conservation, Modified ADL techniques, Progress toward Goal/Update tx plan, Purpose of tx/functional activities, Safety issues, Transfer techniques Teaching Recipient: Patient Teaching Methods: Discussion Response to Teaching: Verbalize Understanding OT Short Term Goals Short Term Goals Time Frame: Feb 19, 2020 Shower/bathe self: 3 Upper body dressin Lower body dressin OT Group Home Goals Group Home Goals Time Frame: Feb 26, 2020 Eating (QC): 6 Oral Hygiene (QC): 6 Toileting Hygiene (QC): 6 Shower/Bathe Self (QC): 6 Upper Body Dressing (QC): 6 Lower Body Dressing (QC): 6 On/Off Footwear (QC): 6 Additional Goals: 1-Demonstrate ADL Tasks, 2-Verbalize Understanding, 3- ImproveStrength/Tiff 1=Demonstrate adherence to instructed precautions during ADL tasks. 2=Patient will verbalize/demonstrate understanding of assistive devices/modifications for ADL. 3=Patient will improve strength/tolerance for activity to enable patient to perform ADL's. OT Education/Plan Problem List/Assessment Assessment: Decreased Activ Tolerance, Decreased UE Strength, Impaired Funct Balance, Impaired I ADL's, Impaired Self-Care Skills Discharge Recommendations Plan/Recommendations: Continue POC Treatment Plan/Plan of Care Patient would benefit from OT for education, treatment and training to promote independence in ADL's, mobility, safety and/or upper extremity function for ADL's. Plan of Care: ADL Retraining, Caregiver Training, Concurrent Therapy, Functional Mobility, Group Exercise/Act as Ind, UE Funct Exercise/Act, W/C Management Training Treatment Duration: Feb 26, 2020 Frequency: At least 5 of 7 days/Wk (IRF) Estimated Hrs Per Day: 1.5 hours per day Agreement: Yes Rehab Potential: Fair Time/GCodes Start Time: 09:30 Stop Time: 10:45 Total Time Billed (hr/min): 75 Billed Treatment Time 1, ADL 5 (75') TISHA CARTAGENA OT Feb 20, 2020 10:51
--- NOTE | 2020-02-20 11:34 | Physical Therapy Daily Note ---
PT Daily Note-Current Subjective Pt. resistive to Rx. Pt. Stood from recliner after much encouragement then quickly sat back down on bed, plopping and moaning and sighing. Pt. comments over and over that he is so tired, "I need rest"" I hauled hay yesterday, Im so tired" Pain Location: No Pain Reported Appearance eyes closed, slumped posture Mental Status Patient Orientation: Confused Transfers SCALE: Activities may be completed with or without assistive devices. 2-Wcwbxunfxb-avpagew completes the activity by him/herself with no assistance from a helper. 5-Set-up or Clean-up Assistance-helper sets up or cleans up; patient completes activity. [place] assists only prior to or following the activity. 4-Supervision or Touching Assistance-helper provides verbal cues and/or touching/steadying and/or contact guard assistance as patient completes activity. Assistance may be provided throughout the activity or intermittently. 3-Partial/Moderate Assistance-helper does LESS THAN HALF the effort. [place] lifts, holds or supports trunk or limbs, but provides less than half the effort. 2-Substantial/Maximal Assistance-helper does MORE THAN HALF the effort. [place] lifts or holds trunk or limbs and provides more than half the effort. 4-Txtknnaif-txtoom does ALL the effort. Patient does none of the effort to complete the activity. Or, the assistance of 2 or more helpers is required for the patient to complete the activity. If activity was not attempted, code reason: 7-Patient Refused. 9-Not Applicable-not attempted and the patient did not perform the activity before the current illness, exacerbation or injury. 10-Not Attempted due to Environmental Limitations-(lack of equipment, weather restraints, etc.). 88-Not Attempted due to Medical Conditions or Safety Concerns. Sit to Stand (QC): 4 Chair/Kec-xt-Fujjn Xfer(QC): 4 Weight Bearing Right Lower Extremity: Right Weight Bearing/Tolerated cam boot on the right side Gait Training Does the Patient Walk?: Yes Gait Assistive Device: FWW pt. only ambulated 6-7 ft x 2 with this CIRCLE CUTTING SAW OPERATOR pushing and encouraging the whole way with pt. sit as soon as he came to a surface, then plopping down, moaning and sighing with c/o fatigue Exercises Seated Therapy Exercises: Ankle pumps, Long arc quads Seated Reps: 12 Treatments attempted to get pt. to participate but he states over and over he is too tired and cannot , pt. sits almost as soon as he gets up. Assessment Current Status: Poor Progress unmotivated, confused at times, PT Short Term Goals Short Term Goals Time Frame: Feb 19, 2020 Roll Left & Right: 6 Sit to lyin Lying to sitting on side of be: 6 Sit to stand: 3 Chair/zje-bx-komas transfer: 3 Walk 10 feet: 3 PT Longterm Goals Longterm Goals PT Liquor Rectifier Goals Time Frame: Mar 04, 2020 Roll Left & Right (QC): 6 Sit to Lying (QC): 6 Lying-Sitting on Side/Bed(QC): 6 Sit to Stand (QC): 4 Chair/Grw-bu-Wwiwl Xfer(QC): 4 Toilet Transfer (QC): 4 Car Transfer (QC): 4 Does the Patient Walk: Yes Walk 10 feet (QC): 4 Walk 50ft with 2 Turns (QC): 4 Walk 150 ft (QC): 88 Walking 10ft on Uneven Surface: 88 1 Step (curb) (QC): 4 4 Steps (QC): 4 12 Steps (QC): 88 Picking up an Object (QC): 88 Wheel 50 feet with 2 turns (QC: 6 Wheel 150 feet: 6 PT Plan Treatment/Plan Treatment Plan: Continue Plan of Care Treatment Plan: Bed Mobility, Education, Functional Activity Tiff, Functional Strength, Group Therapy, Gait, Safety, Therapeutic Exercise, Transfers Treatment Duration: Mar 04, 2020 Frequency: At least 5 of 7 days/Wk (IRF) Estimated Hrs Per Day: 1.5 hours per day Patient and/or Family Agrees t: Yes Safety Risks/Education Patient Education: Gait Training, Transfer Techniques, Correct Positioning, Disease Process, Safety Issues Teaching Recipient: Patient Teaching Methods: Demonstration, Discussion Response to Teaching: Unable to Return Demonstration, Unable to Comprehend, Reinforcement Needed Time/GCodes Time In: 1115 Time Out: 1130 Total Billed Treatment Time: 15 Total Billed Treatment 1,FA15m PUJA LIMA CIRCLE CUTTING SAW OPERATOR Feb 20, 2020 11:34
--- NOTE | 2020-02-20 13:21 | Physical Therapy Daily Note ---
PT Daily Note-Current Subjective Pt. asleep in recliner. Awakens, lunch in front of him partially eaten states he doesnt want any more of it and will not walk Pain Location: No Pain Reported Mental Status Patient Orientation: Confused Transfers SCALE: Activities may be completed with or without assistive devices. 5-Eqcsaezxwy-zblbdtv completes the activity by him/herself with no assistance from a helper. 5-Set-up or Clean-up Assistance-helper sets up or cleans up; patient completes activity. [place] assists only prior to or following the activity. 4-Supervision or Touching Assistance-helper provides verbal cues and/or touching/steadying and/or contact guard assistance as patient completes activity. Assistance may be provided throughout the activity or intermittently. 3-Partial/Moderate Assistance-helper does LESS THAN HALF the effort. [place] lifts, holds or supports trunk or limbs, but provides less than half the effort. 2-Substantial/Maximal Assistance-helper does MORE THAN HALF the effort. [place] lifts or holds trunk or limbs and provides more than half the effort. 0-Usdriwmjd-ujfasm does ALL the effort. Patient does none of the effort to complete the activity. Or, the assistance of 2 or more helpers is required for the patient to complete the activity. If activity was not attempted, code reason: 7-Patient Refused. 9-Not Applicable-not attempted and the patient did not perform the activity before the current illness, exacerbation or injury. 10-Not Attempted due to Environmental Limitations-(lack of equipment, weather restraints, etc.). 88-Not Attempted due to Medical Conditions or Safety Concerns. sit to stand x 2 CGA Weight Bearing Right Lower Extremity: Right Weight Bearing/Tolerated cam boot on the right side Exercises Seated Therapy Exercises: Ankle pumps, Sit to stand (x2), Long arc quads, Hip flexion, Hip abd/add Seated Reps: 12 Treatments pt. continues uncooperative for most part. Pt. stood with CGA , cam boot inistu, wt shifted briefly. no LOB but expresses fear of falling. Up in recliner after rx with call lauren and urinal at hand Assessment Current Status: Poor Progress PT Short Term Goals Short Term Goals Time Frame: Feb 19, 2020 Roll Left & Right: 6 Sit to lyin Lying to sitting on side of be: 6 Sit to stand: 3 Chair/eea-tt-dkgol transfer: 3 Walk 10 feet: 3 PT Group Home Goals Group Home Goals PT Group Home Goals Time Frame: Mar 04, 2020 Roll Left & Right (QC): 6 Sit to Lying (QC): 6 Lying-Sitting on Side/Bed(QC): 6 Sit to Stand (QC): 4 Chair/Kdy-ds-Ocwur Xfer(QC): 4 Toilet Transfer (QC): 4 Car Transfer (QC): 4 Does the Patient Walk: Yes Walk 10 feet (QC): 4 Walk 50ft with 2 Turns (QC): 4 Walk 150 ft (QC): 88 Walking 10ft on Uneven Surface: 88 1 Step (curb) (QC): 4 4 Steps (QC): 4 12 Steps (QC): 88 Picking up an Object (QC): 88 Wheel 50 feet with 2 turns (QC: 6 Wheel 150 feet: 6 PT Plan Treatment/Plan Treatment Plan: Continue Plan of Care Treatment Plan: Bed Mobility, Education, Functional Activity Tiff, Functional Strength, Group Therapy, Gait, Safety, Therapeutic Exercise, Transfers Treatment Duration: Mar 04, 2020 Frequency: At least 5 of 7 days/Wk (IRF) Estimated Hrs Per Day: 1.5 hours per day Patient and/or Family Agrees t: Yes Safety Risks/Education Patient Education: Transfer Techniques Response to Teaching: Reinforcement Needed Time/GCodes Time In: 1300 Time Out: 1315 Total Billed Treatment Time: 15 Total Billed Treatment 1,EX15m PUJA LIMA DATA ANALYTICS SPECIALIST Feb 20, 2020 13:21
--- NOTE | 2020-02-20 14:30 | NUR ---
"RD ASSESSMENT PMHx: hypercholesterolemia; HTN; dementia; CA(prostate) PT INTERACTION: Pt was awake and pleasant during nutrition assessment. Note pt has dementia, per chart review. Pt states he has been eating well since last assessment. Note avg PO intake 61% x4d, per chart review. Pt states no issues with nausea, vomiting, constipation, or diarrhea since last assessment. Note last BM was 78 and pt currently on bowel regimen of colace BID; senna BID; and miralax BID, per chart review. ABNORMAL NUTRITION-RELATED LAB VALUES LOW: HIGH: glu 106; AST 40 Est. kcal needs: 1650 kcal | 15 kcal/kg Est. Pro needs: 88 g Pro | 0.8 g Pro/kg PES STATEMENT: Inadequate oral intake (NI-2.1) related to loss of appetite as evidenced by pt interview | avg PO intake 61% x4d INTERVENTION: Continue with current diet order of Regular diet. Continue with current supplementation order of Ensure Enlive with meals TID, for increased kcal intake. Provides 350 kcal and 13 g Pro per serving. Will continue to follow and reassess as pt needs, intake, and status change. MONITOR/EVALUATE: PO Intake; Plan of Care; Hydration Status; Weight Status; Lab Values Horace Sandy, MS, RD, LD"
[2020-02-20 18:00] VITALS: BP 120/72
[2020-02-20] MEDS: ENOXAPARIN 40 MG/0.4 ML (LOVENOX) SYR SC SCH (20:02)
[2020-02-21 05:10] VITALS: BP 110/71
[2020-02-21] MEDS: THIAMINE 100 MG (VITAMIN B-1) TAB PO SCH (06:11)
[2020-02-21] MEDS: KCL 10 MEQ TAB (MICRO K) PO SCH (06:11)
--- NOTE | 2020-02-21 06:11 | PM&R Progress Note ---
Subjective HPI/CC On Admission Date Seen by Provider: Feb 21, 2020 Time Seen by Provider: 09:15 Subjective/Events-last exam Refusing shower Very depressed Open for a senior behavioral unit psych evaluation Spoke with senior behavioral unit and it appears that if he is willing we can do that and continue placement at [facility] Checked meds and lab Conferred with RN Reviewed therapy notes Review of Systems General: Fatigue, Malaise Musculoskeletal: leg pain Depression Objective Exam Vital Signs Vital Signs Date Time Temp Pulse Resp B/P (MAP) Pulse Ox O2 Delivery O2 Flow Rate FiO2 02/21/20 16:45 37.0 95 18 114/71 (85) 95 Room Air 02/15/20 10:09 21 Capillary Refill : Less Than 3 SecondsLess Than 3 Seconds General Appearance: No Apparent Distress, WD/WN, Chronically ill HEENT: PERRL/EOMI, Normal ENT Inspection, Pharynx Normal Neck: Full Range of Motion, Normal Inspection, Non Tender, Supple, Carotid Bruit Respiratory: Chest Non Tender, Lungs Clear, Normal Breath Sounds, No Accessory Muscle Use, No Respiratory Distress Cardiovascular: Regular Rate, Rhythm, No Edema, No Gallop, No JVD, No Murmur, Normal Peripheral Pulses Gastrointestinal: Normal Bowel Sounds, No Organomegaly, No Pulsatile Mass, Non Tender, Soft Back: Normal Inspection, No CVA Tenderness, No Vertebral Tenderness Extremity: Normal Capillary Refill, Normal Inspection, Normal Range of Motion (except right leg), Non Tender, No Calf Tenderness, No Pedal Edema Neurologic/Psychiatric: Alert, Oriented x3, No Motor/Sensory Deficits, Normal Mood/Affect, Abnormal Gait, Motor Weakness (right leg) Skin: Normal Color, Warm/Dry Lymphatic: No Adenopathy Results/Procedures Lab Patient resulted labs reviewed. FIM Transfers Therapy Code Descriptions/Definitions Functional [place] Measure: 0=Not Assessed/NA 4=Minimal Assistance 1=Total Assistance 5=Supervision or Setup 2=Maximal Assistance 6=Modified [place] 3=Moderate Assistance 7=Complete IndependenceSCALE: Activities may be completed with or without assistive devices. 2-Bcdlvdvwph-teppspg completes the activity by him/herself with no assistance from a helper. 5-Set-up or Clean-up Assistance-helper sets up or cleans up; patient completes activity. [place] assists only prior to or following the activity. 4-Supervision or Touching Assistance-helper provides verbal cues and/or touching/steadying and/or contact guard assistance as patient completes activity. Assistance may be provided throughout the activity or intermittently. 3-Partial/Moderate Assistance-helper does LESS THAN HALF the effort. [place] lifts, holds or supports trunk or limbs, but provides less than half the effort. 2-Substantial/Maximal Assistance-helper does MORE THAN HALF the effort. [place] lifts or holds trunk or limbs and provides more than half the effort. 0-Cdqikozgs-dujave does ALL the effort. Patient does none of the effort to complete the activity. Or, the assistance of 2 or more helpers is required for the patient to complete the activity. If activity was not attempted, code reason: 7-Patient Refused. 9-Not Applicable-not attempted and the patient did not perform the activity before the current illness, exacerbation or injury. 10-Not Attempted due to Environmental Limitations-(lack of equipment, weather restraints, etc.). 88-Not Attempted due to Medical Conditions or Safety Concerns. Roll Left to Right (QC): 6 Sit to Lying (QC): 3 Sit to Stand (QC): 4 Chair/Gri-my-Jedvw Xfer(QC): 4 Car Transfer (QC): 2 Gait Training Does the Patient Walk?: Yes Distance: 120'x2 Walk 10 feet (QC): 4 Walk 50 ft with 2 Turns(QC): 4 Walk 150 ft (QC): 3 Walking 10ft/uneven surface-QC: 88 Gait Persons Needed: 1 Gait Assistive Device: FWW Wheelchair Training Does the Pt Use a Wheelchair?: Yes Distance: SEE PT GOALS Wheel 50 ft with 2 turns (QC): 5 Wheel 150 ft (QC): 5 Type of Wheelchair: Manual Stair Training 1 Step (curb) (QC): 88 4 Steps (QC): 88 12 Steps (QC): 88 Balance Picking up an Object (QC): 88 ADL-Treatment Eating (QC): 6 Oral Hygiene (QC): 6 Bathing Location: L Arm, R Arm, L Upper Leg, R Upper Leg, L Lower Leg (including foot), Chest, Abdomen, Buttocks, Perineal Area Shower/Bathe Self (QC): 3 (Min A sponge bath, pt required assistance washing BLE feet, and R lower leg. ) Upper Body Dressing (QC): 5 (set up) Lower Body Dressing (QC): 4 (CGA in standing at FWW, pt able to don/doff pants with supervisor coating) On/Off Footwear (QC): 2 (Pt states he does not know how to don/doff the boot on his R foot. Pt required total assistance with his boot, and assistance with compression sock on L foot.) Toileting Hygiene (QC): 4 (CGA, pt able to manage clothing up/down, and complete hygiene after BM. ) Toilet Transfer (QC): 4 (CGA on/off BSC) Assessment/Plan Assessment and Plan Assess & Plan/Chief Complaint Assessment: Right distal fibula fracture Alcoholism Smoker Memory loss HTN HLP Rhabdomyolysis Hypokalemia Tobacco user Depression Plan: IRF protocol Pain meds ETOH w/d protocol now beyond that HLIVF Replaced potassium Patient may very well leave against medical advice Keep right leg in walking boot Needs NH at [place] where his son lives Tobacco cessation discussed [facility] senior behavioral unit evaluation (1) Closed right fibular fracture Status: Acute (2) Smoker (3) Alcohol abuse (4) Cognitive deficits (5) Fall Status: Acute (6) Physical debility Status: Acute (7) Cellulitis of groin Status: Acute (8) Prostate cancer Status: Acute KAVON DRIVER DO Feb 21, 2020 06:10
[2020-02-21] MEDS: MULTIVIT W/MINERALS TAB (THERAGRAN M) PO SCH (06:12)
[2020-02-21] MEDS: FOLIC ACID 1 MG TAB PO SCH (09:01)
[2020-02-21] MEDS: MAGNESIUM OXIDE (MAG-OX)400 MG TAB PO SCH (09:01)
[2020-02-21] MEDS: DOCUSATE SODIUM 100 MG (COLACE) CAP PO SCH (09:08)
[2020-02-21] MEDS: SENNA W/DOCUSATE (SENOKOT S) TABLET PO SCH (09:09)
[2020-02-21] MEDS: polyethylene glycoL POWDER 17 GM (MIRALAX) PACK PO SCH (09:09)
--- NOTE | 2020-02-21 10:30 | NUR ---
DR DRIVER HERE TO ASSESS PATIENT.
--- NOTE | 2020-02-21 10:48 | Physical Therapy Daily Note ---
PT Daily Note-Current Subjective Patient in the shower pre tx, agrees to PT, has 5/10 pain in right leg. Will be co-treating with OT due to poor patient mobility, strength, pain, the need to coordinate UE and LE during activity, poor safety awareness, decrease the risk of falls. Appearance Patient in recliner post tx with nurse call, phone, tray, all needs met. Mental Status Patient Orientation: Person, Place, Situation right boot Transfers SCALE: Activities may be completed with or without assistive devices. 4-Eqwiybxkjb-ortsuxk completes the activity by him/herself with no assistance from a helper. 5-Set-up or Clean-up Assistance-helper sets up or cleans up; patient completes activity. [place] assists only prior to or following the activity. 4-Supervision or Touching Assistance-helper provides verbal cues and/or touching/steadying and/or contact guard assistance as patient completes activity. Assistance may be provided throughout the activity or intermittently. 3-Partial/Moderate Assistance-helper does LESS THAN HALF the effort. [place] lifts, holds or supports trunk or limbs, but provides less than half the effort. 2-Substantial/Maximal Assistance-helper does MORE THAN HALF the effort. [place] lifts or holds trunk or limbs and provides more than half the effort. 4-Aopklygwc-cawtew does ALL the effort. Patient does none of the effort to complete the activity. Or, the assistance of 2 or more helpers is required for the patient to complete the activity. If activity was not attempted, code reason: 7-Patient Refused. 9-Not Applicable-not attempted and the patient did not perform the activity before the current illness, exacerbation or injury. 10-Not Attempted due to Environmental Limitations-(lack of equipment, weather restraints, etc.). 88-Not Attempted due to Medical Conditions or Safety Concerns. Roll Left & Right (QC): 6 Sit to Lying (QC): 3 Lying to Sitting/Side of Bed(Q: 4 Sit to Stand (QC): 4 Chair/Pcm-po-Jklgv Xfer(QC): 4 Toilet Transfer (QC): 4 Car Transfer (QC): 4 Patient performs bed mobility with independence, supine to sit with SBA, sit to supine with min assist, sit <-> stand CGA, transfers CGA, car transfer CGA. Patient needs assist with right leg when getting into bed. Assisted OT during showering with standing, balance, positioning, and safety, also during dressing and grooming. Weight Bearing Right Lower Extremity: Right Weight Bearing/Tolerated cam boot on the right side Gait Training Distance: 100'x2 Walk 10 feet (QC): 4 Walk 50 ft with 2 Turns(QC): 4 Walk 150 ft (QC): 88 (100' is the max patient could ambulate today due to fatigue) Walking 10ft/uneven surface-QC: 88 (Patient is unsteady with ambulation and could not ambulate over an uneven surface safely.) Gait Persons Needed: 1 Gait Assistive Device: FWW Patient can ambulate 100' with a rolling walker with CGA (including 50' with at least 2 turns of 90 degrees). Ambulation is unsteady and needs close guarding. Wheelchair Training Does the Pt Use a Wheelchair?: No Stair Training 1 Step (curb) (QC): 88 4 Steps (QC): 88 12 Steps (QC): 88 patient does not have the strength or steadiness to go up stairs Balance Picking up an Object (QC): 88 Treatments bed mobility and transfers, ambulation, bathing, dressing, grooming. PT performed bed mobility and transfers, ambulation, car transfer, standing and assist with balance and safety during bathing and dressing. OT performed bathing and dressing and assisted with UE safety and positioning during activity. 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 Shelter Goals PT Shelter Goals Time Frame: Mar 04, 2020 Roll Left & Right (QC): 6 Sit to Lying (QC): 6 Lying-Sitting on Side/Bed(QC): 6 Sit to Stand (QC): 4 Chair/Tmp-ag-Dethx Xfer(QC): 4 Toilet Transfer (QC): 4 Car Transfer (QC): 4 Does the Patient Walk: Yes Walk 10 feet (QC): 4 Walk 50ft with 2 Turns (QC): 4 Walk 150 ft (QC): 88 Walking 10ft on Uneven Surface: 88 1 Step (curb) (QC): 4 4 Steps (QC): 4 12 Steps (QC): 88 Picking up an Object (QC): 88 Wheel 50 feet with 2 turns (QC: 6 Wheel 150 feet: 6 PT Plan Problem List Problem List: Activity Tolerance, Functional Strength, Safety, Balance, Gait, Transfer, Bed Mobility, ROM Treatment/Plan Treatment Plan: Continue Plan of Care Treatment Plan: Bed Mobility, Education, Functional Activity Tiff, Functional Strength, Group Therapy, Gait, Safety, Therapeutic Exercise, Transfers Treatment Duration: Mar 04, 2020 Frequency: At least 5 of 7 days/Wk (IRF) Estimated Hrs Per Day: 1.5 hours per day Patient and/or Family Agrees t: Yes Safety Risks/Education Patient Education: Gait Training, Transfer Techniques, Correct Positioning, Reviewed Don/Doff Brace, Safety Issues Teaching Recipient: Patient Teaching Methods: Demonstration, Discussion Response to Teaching: Reinforcement Needed Time/GCodes Time In: 1000 Time Out: 1045 Total Billed Treatment Time: 45 Total Billed Treatment 1 visit FA 45' ANGEL BUSH PT Feb 21, 2020 10:48
--- NOTE | 2020-02-21 10:50 | Speech Therapy Daily Note ---
Speech Daily Progress Note Subjective Date Seen by Provider: Feb 21, 2020 Time Seen by Provider: 00:30 Patient was resting in his recliner when I entered his room. Patient is happy to be leaving tomorrow. Objective Patient completed a series of "what's wrong with this scene" cards with 80% accuracy given min to mod cues. Assessment Assessment Current Status: Good Progress Treatment Plan Discontinue ST, Goals Met Speech Short Term Goals Short Term Goals Short Term Goals 1) Patient will complete memory tasks related to his daily needs at 90% or greater. 2) Patient will complete problem solving tasks related to his daily needs at 90% or greater. 3) Patient will complete safety awareness tasks related to his daily needs at 90% or greater. Speech Correction Goals Correction Goals Patient will improve cognitive communication necessary for safety and daily living tasks with minimal assist. Speech-Plan Patient/Family Goals Patient/Family Goals: Patient is scheduled for discharge to SNF on 02/22/2020 Treatment Plan Speech Therapy Treatment Plan: Discontinue ST, Goals Met Treatment Duration: Feb 14, 2020 Frequency: 5 times per week Estimated Hrs Per Day: .5 hour per day Rehab Potential: Fair Barriers to Learning: Patient's cognitive deficits Pt/Family Agrees to Plan: Yes Safety Risks/Education Teaching Recipient: Patient Teaching Methods: Demonstration, Discussion Response to Teaching: Verbalize Understanding, Return Demonstration Education Topics Provided: Continued safety upon his discharge Time Speech Therapy Time In: 09:00 Speech Therapy Time Out: 09:30 Total Billed Time: 30 Billed Treatment Time 1[address] Feb 21, 2020 10:50
--- NOTE | 2020-02-21 11:10 | Occupational Ther Daily Note ---
OT Current Status-Daily Note Subjective Pt alert, sitting in recliner. Pt required max encouragement to participate in therapy. Nrsg, pal and SANCHO worked with pt to ambulate and participate. Pt QC'd today, discharging tomorrow. Mental Status/Objective Patient Orientation: Person, Place, Time, Situation Attachments: Other-See Comments (walking boot) ADL-Treatment Pt reluctantly agreed to shower. Due to anxiety, pt required max A for sit to stand then CGA during ambulation for safety. Transferred on/off BSC with min A due to anxiety, pt has demonstrated ability to complete transfer with CGA previously. Pt able to manipulate clothing, assist to cleanse buttocks. CGA to transfer into shower. With direction, pt was able to wash all areas except buttocks. Due to walking boot/cast off during shower, pt did not stand, cleansed buttocks after toileting. Pt able to complete voiding in urinal in sitting, assist to empty urinal. Set up for upper body dressing. Assist to thread R foot into pant leg due to walking boot then was able to thread L foot into pant leg, able to stand and hike pants over hips with CGA. Pt did stand and urinate with CGA using urinal and FWW. Per clinical judgment, pt able to complete oral care and eating with mod I. Therapy Code Descriptions/Definitions Functional [place] Measure: 0=Not Assessed/NA 4=Minimal Assistance 1=Total Assistance 5=Supervision or Setup 2=Maximal Assistance 6=Modified [place] 3=Moderate Assistance 7=Complete IndependenceSCALE: Activities may be completed with or without assistive devices. 5-Oxptnpdpqs-zacbdpd completes the activity by him/herself with no assistance from a helper. 5-Set-up or Clean-up Assistance-helper sets up or cleans up; patient completes activity. [place] assists only prior to or following the activity. 4-Supervision or Touching Assistance-helper provides verbal cues and/or touching/steadying and/or contact guard assistance as patient completes ac tivity. Assistance may be provided throughout the activity or intermittently. 3-Partial/Moderate Assistance-helper does LESS THAN HALF the effort. [place] lifts, holds or supports trunk or limbs, but provides less than half the effort. 2-Substantial/Maximal Assistance-helper does MORE THAN HALF the effort. [place] lifts or holds trunk or limbs and provides more than half the effort. 9-Vfyfhzytw-dvmwim does ALL the effort. Patient does none of the effort to complete the activity. Or, the assistance of 2 or more helpers is required for the patient to complete the activity. If activity was not attempted, code reason: 7-Patient Refused. 9-Not Applicable-not attempted and the patient did not perform the activity before the current illness, exacerbation or injury. 10-Not Attempted due to Environmental Limitations-(lack of equipment, weather restraints, etc.). 88-Not Attempted due to Medical Conditions or Safety Concerns. Eating (QC): 6 Oral Hygiene (QC): 6 Bathing Location: L Arm, R Arm, L Upper Leg, R Upper Leg, L Lower Leg (including foot), R Lower Leg (including foot), Chest, Abdomen, Buttocks, Perineal Area Shower/Bathe Self (QC): 3 Upper Body Dressing (QC): 5 Lower Body Dressing (QC): 2 On/Off Footwear: 3 Toileting Hygiene (QC): 3 Other Treatment Co-treat with PT ([id number]), skills of 2 clinicians required due to poor patient mobility, strength, pain, the need to coordinate UE and LE during activity, poor safety awareness, decrease the risk of falls. PT working on transfers, ambulation and safety during functional tasks. OT working on ADLs, UE placement during functional transfers. After session, pt sitting in recliner with call light/phone in reach. All needs met in room. OT Short Term Goals Short Term Goals Time Frame: Feb 19, 2020 Shower/bathe self: 3 Upper body dressin Lower body dressin OT Detention Goals Detention Goals Time Frame: Feb 26, 2020 Eating (QC): 6 (met) Oral Hygiene (QC): 6 (met) Toileting Hygiene (QC): 6 (not met) Shower/Bathe Self (QC): 6 (not met) Upper Body Dressing (QC): 6 (not met) Lower Body Dressing (QC): 6 (not met) On/Off Footwear (QC): 6 (not met) Additional Goals: 1-Demonstrate ADL Tasks, 2-Verbalize Understanding, 3- ImproveStrength/Tiff 1=Demonstrate adherence to instructed precautions during ADL tasks. 2=Patient will verbalize/demonstrate understanding of assistive devices/modifications for ADL. 3=Patient will improve strength/tolerance for activity to enable patient to perform ADL's. OT Education/Plan Problem List/Assessment Assessment: Decreased Activ Tolerance, Decreased Safety Aware, Decreased UE Strength, Impaired Coordination, Impaired Funct Balance, Impaired Self-Care Skills Discharge Recommendations Plan/Recommendations: Continue POC Treatment Plan/Plan of Care Patient would benefit from OT for education, treatment and training to promote independence in ADL's, mobility, safety and/or upper extremity function for ADL's. Plan of Care: ADL Retraining, Caregiver Training, Concurrent Therapy, Functional Mobility, Group Exercise/Act as Ind, UE Funct Exercise/Act, W/C Management Training Treatment Duration: Feb 26, 2020 Frequency: At least 5 of 7 days/Wk (IRF) Estimated Hrs Per Day: 1.5 hours per day Agreement: Yes Rehab Potential: Fair Time/GCodes Start Time: 09:30 Stop Time: 10:45 Total Time Billed (hr/min): 75 Billed Treatment Time 1 visit-ADL 4 (60 min) FA 1 (15 min) co-treat with PT 45 min ([id number]) individual 30 min ([id number]) LEE DESIR Feb 21, 2020 11:10
--- NOTE | 2020-02-21 11:52 | Discharge Summary ---
Diagnosis/Chief Complaint Date of Admission Feb 12, 2020 at 12:15 Date of Discharge Discharge Diagnosis Assessment: Right distal fibula fracture Alcoholism Smoker Memory loss HTN HLP Rhabdomyolysis Hypokalemia Tobacco user Depression Plan: IRF protocol Pain meds ETOH w/d protocol now beyond that HLIVF Replaced potassium Patient may very well leave against medical advice Keep right leg in walking boot Needs NH at [place] where his son lives Tobacco cessation discussed [facility] senior behavioral unit evaluation Discharge Summary Discharge Physical Examination Allergies: Coded Allergies: No Known Drug Allergies (Unverified , 11/26/15) Vitals & I&Os Vital Signs Date Time Temp Pulse Resp B/P (MAP) Pulse Ox O2 Delivery O2 Flow Rate FiO2 02/21/20 16:45 37.0 95 18 114/71 (85) 95 Room Air 02/15/20 10:09 21 General Appearance: Alert, Oriented X3 Respiratory: Normal Air Movement Cardiovascular: Regular Rate Hospital Course Was the Problem List Reviewed?: Yes Hospital Course: Pt had an uneventful hospital course for 10 days after he was transferred down from [address] [place] [address] after a a fall and sustaining a right distal fibula fracture that was non surgical, placed in a walking boot and weight bearing as tolerated per orthopedic surgery Dr. Ramirez. He had significant issues with very severe depression, lack of motivation, refusing to shower even though therapies were very assertive in their approach. Alcohol withdrawal was not a significant problem although he was on the detox protocol on admission. Overall he had significant difficulties with coping considering his slum score of 20 and behaviors coming from that. Depression was such a significant issues he required transfer to the senior behavioral unit for close monitoring because he appears to be a suicide risk if this contiues much longer. He is hopeless, helpless, and having a lot of difficulty thinking about going to a penitentiary in [place] with his son. Overall he was stable, labs remained stable, and he was discharged in stable condition to the geripsych unit at [facility]. Labs (last 24 hrs) Laboratory Tests 02/13/20 05:10: White Blood Count 7.2, Red Blood Count 3.53L, Hemoglobin 11.2L, Hematocrit 33L, Mean Corpuscular Volume 93, Mean Corpuscular Hemoglobin 32, Mean Corpuscular Hemoglobin Concent 34, Red Cell Distribution Width 14.0, Platelet Count 208, Mean Platelet Volume 9.9, Neutrophils (%) (Auto) 55, Lymphocytes (%) (Auto) 29, Monocytes (%) (Auto) 11, Eosinophils (%) (Auto) 5, Basophils (%) (Auto) 0, Neutrophils # (Auto) 4.0, Lymphocytes # (Auto) 2.1, Monocytes # (Auto) 0.8, Eosinophils # (Auto) 0.3, Basophils # (Auto) 0.0, Sodium Level 134L, Potassium Level 3.4L, Chloride Level 105, Carbon Dioxide Level 19L, Anion Gap 10, Blood Urea Nitrogen 22H, Creatinine 1.00, Estimat Glomerular Filtration Rate > 60, BUN/Creatinine Ratio 22, Glucose Level 107H, Calcium Level 8.3L, Corrected Calcium 9.0, Total Bilirubin 0.6, Aspartate Amino Transf (AST/SGOT) 33, Alanine Aminotransferase (ALT/SGPT) 24, Alkaline Phosphatase 50, Total Creatine Kinase 466H, Total Protein 5.9L, Albumin 3.1L 02/18/20 04:39: White Blood Count 7.9, Red Blood Count 4.15L, Hemoglobin 13.1L, Hematocrit 39L, Mean Corpuscular Volume 94, Mean Corpuscular Hemoglobin 32, Mean Corpuscular Hemoglobin Concent 34, Red Cell Distribution Width 14.9H, Platelet Count 305, Mean Platelet Volume 10.1, Neutrophils (%) (Auto) 56, Lymphocytes (%) (Auto) 27, Monocytes (%) (Auto) 12, Eosinophils (%) (Auto) 5, Basophils (%) (Auto) 1, Neutrophils # (Auto) 4.4, Lymphocytes # (Auto) 2.2, Monocytes # (Auto) 1.0, Eosinophils # (Auto) 0.4H, Basophils # (Auto) 0.0, Sodium Level 136, Potassium Level 4.1, Chloride Level 102, Carbon Dioxide Level 21, Anion Gap 13, Blood Urea Nitrogen 15, Creatinine 0.99, Estimat Glomerular Filtration Rate > 60, BUN /Creatinine Ratio 15, Glucose Level 106H, Calcium Level 9.8, Corrected Calcium 10.0, Total Bilirubin 0.5, Aspartate Amino Transf (AST/SGOT) 40H, Alanine Aminotransferase (ALT/SGPT) 44, Alkaline Phosphatase 59, Total Protein 7.5, Albumin 3.8 Pending Labs Laboratory Tests 02/13/20 05:10: White Blood Count 7.2, Red Blood Count 3.53, Hemoglobin 11.2, Hematocrit 33, Mean Corpuscular Volume 93, Mean Corpuscular Hemoglobin 32, Mean Corpuscular Hemoglobin Concent 34, Red Cell Distribution Width 14.0, Platelet Count 208, Mean Platelet Volume 9.9, Neutrophils (%) (Auto) 55, Lymphocytes (%) (Auto) 29, Monocytes (%) (Auto) 11, Eosinophils (%) (Auto) 5, Basophils (%) (Auto) 0, Neutrophils # (Auto) 4.0, Lymphocytes # (Auto) 2.1, Monocytes # (Auto) 0.8, Eosinophils # (Auto) 0.3, Basophils # (Auto) 0.0, Sodium Level 134, Potassium Level 3.4, Chloride Level 105, Carbon Dioxide Level 19, Anion Gap 10, Blood Urea Nitrogen 22, Creatinine 1.00, Estimat Glomerular Filtration Rate > 60, BUN/Creatinine Ratio 22, Glucose Level 107, Calcium Level 8.3, Corrected Calcium 9.0, Total Bilirubin 0.6, Aspartate Amino Transf (AST/SGOT) 33, Alanine Aminotransferase (ALT/SGPT) 24, Alkaline Phosphatase 50, Total Creatine Kinase 466, Total Protein 5.9, Albumin 3.1 02/18/20 04:39: White Blood Count 7.9, Red Blood Count 4.15, Hemoglobin 13.1, Hematocrit 39, Mean Corpuscular Volume 94, Mean Corpuscular Hemoglobin 32, Mean Corpuscular Hemoglobin Concent 34, Red Cell Distribution Width 14.9, Platelet Count 305, Mean Platelet Volume 10.1, Neutrophils (%) (Auto) 56, Lymphocytes (%) (Auto) 27, Monocytes (%) (Auto) 12, Eosinophils (%) (Auto) 5, Basophils (%) (Auto) 1, Neutrophils # (Auto) 4.4, Lymphocytes # (Auto) 2.2, Monocytes # (Auto) 1.0, Eosinophils # (Auto) 0.4, Basophils # (Auto) 0.0, Sodium Level 136, Potassium Level 4.1, Chloride Level 102, Carbon Dioxide Level 21, Anion Gap 13, Blood Urea Nitrogen 15, Creatinine 0.99, Estimat Glomerular Filtration Rate > 60, BUN/Creatinine Ratio 15, Glucose Level 106, Calcium Level 9.8, Corrected Calcium 10.0, Total Bilirubin 0.5, Aspartate Amino Transf (AST/SGOT) 40, Alanine Aminotransferase (ALT/SGPT) 44, Alkaline Phosphatase 59, Total Protein 7.5, Albumin 3.8 Discharge Home Medications: Active Scripts Active Thera-M Tablet (Multivits,Ca,Minerals/Iron/FA) 1 Each Tablet 1 Ea PO DAILY@0700 30 Days Hydrocodone-Acetamin 5-325 mg (Hydrocodone/Acetaminophen) 1 Each Tablet 1 Tab PO Q4H PRN 14 Days Enoxaparin Sodium 40 Mg/0.4 Ml Syringe 40 Mg SC HS 21 Days Reported Tums (Calcium Carbonate) 300 Mg Tab.chew 600 Mg PO PRN PRN Aspirin EC (Aspirin) 81 Mg Tablet.dr 81 Mg PO HS Instructions to patient/family Please see electronic discharge instructions given to patient. Diagnosis/Problems Diagnosis/Problems (1) Closed right fibular fracture Status: Acute (2) Smoker (3) Alcohol abuse (4) Cognitive deficits (5) Fall Status: Acute (6) Physical debility Status: Acute (7) Cellulitis of groin Status: Acute (8) Prostate cancer Status: Acute Clinical Quality Measures DVT/VTE Risk/Contraindication: Risk Factor Score Per Nursin RFS Level Per Nursing on Admit: 4+=Very High KAVON DRIVER DO Feb 21, 2020 11:52
--- NOTE | 2020-02-21 12:06 | NUR ---
PATIENT TRANSFERRED SIT TO STAND WITH SBA, GAIT BELT FOR SAFETY , FWW. AMBUALATED TO FOR LUNCH. PATIENT VERBALIZES SADNESS. DR DRIVER AWARE. PATIETN IS EATING IN DINING AREA, SOCIAL DISTANCING OBSERVED. DENIES NEEDS OR C/O. CONT TO MONITOR.
[2020-02-21] MEDS ORDERED: MULT1TAB63 PO (13:06)
[2020-02-21] MEDS ORDERED: HYDR-83 PO (13:06)
[2020-02-21] MEDS ORDERED: ENOX40DI8 SC (13:06)
--- NOTE | 2020-02-21 14:09 | Therapy Team Discharge Summary ---
Therapy Discharge Summary Discharge Recommendations Date of Discharge Physical Therapy Patient came to rehab with right distal fibula fracture. Upon evaluation patient performed bed mobility with independence, supine <-> sit min assist, sit <-> stand max assist, transfer max assist, car transfer max assist, ambulated 10' with a rolling walker with min assist, and could propel a manual wheelchair 150' with SBA. Patient has been performing bed mobility and transfer training, balance and endurance training, functional strengthening, gait training, and education. Patient has made some progress and has met most of his bed mobility and transfer goals, except for sit to supine, and he has not been able to perform stairs. Now, patient performs bed mobility with independence, supine to sit with SBA, sit to supine with min assist, sit <-> stand CGA, transfers CGA, car transfer CGA, and ambulates 100' with a rolling walker with CGA (including 50' with at least 2 turns of 90 degrees). Patient is discharging from this facility today and will be discharged from PT at this time. Occupational Therapy Decreased Activ Tolerance, Decreased Safety Aware, Decreased UE Strength, Impaired Coordination, Impaired Funct Balance, Impaired Self-Care Skills PT Senior Analytical Chemist Goals Senior Analytical Chemist Goals PT Senior Analytical Chemist Goals Time Frame: Mar 04, 2020 Roll Left to Right (QC): 6 Sit to Lying (QC): 6 Lying-Sitting on Side/Bed(QC): 6 Sit to Stand (QC): 4 Chair/Yyp-nl-Jlfoy Xfer(QC): 4 Car Transfer (QC): 4 Does the Patient Walk: Yes Walk 10 feet (QC): 4 Walk 10ft-Uneven Surface(QC): 88 Walk 50ft with 2 Turns (QC): 4 Walk 150 ft (QC): 88 Wheel 50 feet with 2 turns (QC: 6 1 Step (curb) (QC): 4 4 Steps (QC): 4 12 Steps (QC): 88 Picking up an Object (QC): 88 OT Intermediate Goals Senior Analytical Chemist Goals Time Frame: Feb 26, 2020 Eating (QC): 6 (met) Oral Hygiene (QC): 6 (met) Shower/Bathe Self (QC): 6 (not met) Upper Body Dressing (QC): 6 (not met) Lower Body Dressing (QC): 6 (not met) On/Off Footwear (QC): 6 (not met) Toileting Hygiene (QC): 6 (not met) Toilet/Commode Transfer (QC): 4 Additional Goals: 1-Demonstrate ADL Tasks, 2-Verbalize Understanding, 3- ImproveStrength/Tiff 1=Demonstrate adherence to instructed precautions during ADL tasks. 2=Patient will verbalize/demonstrate understanding of assistive devices/modifications for ADL. 3=Patient will improve strength/tolerance for activity to enable patient to perform ADL's. Speech Intermediate Goals Senior Analytical Chemist Goals Patient will improve cognitive communication necessary for safety and daily living tasks with minimal assist. ANGEL BUSH PT Feb 21, 2020 14:09
--- NOTE | 2020-02-21 14:24 | NUR ---
CM/SS PATIENT CARE CONFERENCE and DISCHARGE Patient discharged today into [facility] via EMS transport. Reviewed Summary of PCC with patient yesterday afternoon and he did agree to a bridge placement in SNF prior to any plans to return home alone. Patient understood that referrals had been sent out in the [facility] area at the request of his son/SANDRO Buckner. Physician visited with patient this a.m. about suspected depression and he agreed to consider an admission at [facility]. Child Care Teacher then participated in a 3way call with patient and Leni Castaneda, Biochemistry Technician, [facility]. Patient participated in an interview/assessment screening and stated he would transfer into the program for an anticipated one week stay. Child Care Teacher fulfilled all requests from [facility] and provided required clinical information for continuum of care. Prepared packet to accompany patient and prepared EMS packet regarding transport and billing. Patient has been accepted by [facility] in [facility]. They have agreed to hold patient's referral/acceptance until updated by [facility] of patient's status. If there are no changes to warrant cancellation of their skilled admission, patient will then transfer there via family transport. Hopeful he will continue to progress positively and be able to move into assisted living residential for more of a skilled nursing plan. Updated sons Dudley and Franco via text due to their obligations today. Spoke with [facility] by phone. Unit RN updated, patient aware.
[2020-02-21 16:45] VITALS: BP 114/71
--- NOTE | 2020-02-21 16:45 | NUR ---
REPORT TO JOSELUIS LEZAMA. JUAN STOLL demonstrates understanding of discharge instructions and accurately returns instructions upon questioning. Copy of Post-Discharge Instructions given to PATIENT. JUAN STOLL is not able to manage continuing needs after discharge, AND WILL BE TRANSFERRED TO [facility]. Patients belongings returned to PATIENT. Patient discharged from [facility]- on 02/21/20 at 1645. JUAN STOLL left floor via STRETCHER, accompanied by EMS.
--- NOTE | 2020-02-22 11:57 | Therapy Team Discharge Summary ---
Therapy Discharge Summary Discharge Recommendations Date of Discharge Feb 21, 2020 at 16:45 Occupational Therapy Decreased Activ Tolerance, Decreased Safety Aware, Decreased UE Strength, Impa ired Coordination, Impaired Funct Balance, Impaired Self-Care Skills Speech-Language Pathology Patient was admitted to the ARU s/p fall with injury. Patient received skilled ST due to decreased cognitive function as indicated by the [facility]UMS evaluation. Patient met goals, however continued to have difficulty with retention of new information. Patient discharged to the SNF this date and from skilled services. PT Senior Living Goals Guest Services Officer Goals PT Senior Living Goals Time Frame: Mar 04, 2020 Roll Left to Right (QC): 6 Sit to Lying (QC): 6 Lying-Sitting on Side/Bed(QC): 6 Sit to Stand (QC): 4 Chair/Thf-jg-Asgju Xfer(QC): 4 Car Transfer (QC): 4 Does the Patient Walk: Yes Walk 10 feet (QC): 4 Walk 10ft-Uneven Surface(QC): 88 Walk 50ft with 2 Turns (QC): 4 Walk 150 ft (QC): 88 Wheel 50 feet with 2 turns (QC: 6 1 Step (curb) (QC): 4 4 Steps (QC): 4 12 Steps (QC): 88 Picking up an Object (QC): 88 OT Guest Services Officer Goals Senior Living Goals Time Frame: Feb 26, 2020 Eating (QC): 6 (met) Oral Hygiene (QC): 6 (met) Shower/Bathe Self (QC): 6 (not met) Upper Body Dressing (QC): 6 (not met) Lower Body Dressing (QC): 6 (not met) On/Off Footwear (QC): 6 (not met) Toileting Hygiene (QC): 6 (not met) Toilet/Commode Transfer (QC): 4 Additional Goals: 1-Demonstrate ADL Tasks, 2-Verbalize Understanding, 3- ImproveStrength/Tiff 1=Demonstrate adherence to instructed precautions during ADL tasks. 2=Patient will verbalize/demonstrate understanding of assistive devices/modifications for ADL. 3=Patient will improve strength/tolerance for activity to enable patient to perform ADL's. Speech Senior Living Goals Guest Services Officer Goals Patient will improve cognitive communication necessary for safety and daily living tasks with minimal assist. JOSE L CHOI Feb 22, 2020 11:57
--- NOTE | 2020-02-22 11:57 | Therapy Team Discharge Summary ---
Therapy Discharge Summary Discharge Recommendations Date of Discharge Feb 21, 2020 at 16:45 Occupational Therapy Pt admits with R fibula fracture. Upon admission, pt required TD for toilet hy giene with assist x2 for stance, max A for LB dressing and footwear and mod A for showering. Pt and OT work towards higher fx IND through ADL tasks, safety awareness, HEP/ UE movement. Pt limited by motivation and stated pain. Pt d/c from ARU with min A showering, LB dressing continues to be max A, and min A footwear and toilet hygiene. Pt d/c with recommendations of maple products supervisor for LB dressing tasks. D/c OT. Decreased Activ Tolerance, Decreased Safety Aware, Decreased UE Strength, Impaired Coordination, Impaired Funct Balance, Impaired Self-Care Skills PT Under Trimmer Goals Under Trimmer Goals PT Skilled Nursing Goals Time Frame: Mar 04, 2020 Roll Left to Right (QC): 6 Sit to Lying (QC): 6 Lying-Sitting on Side/Bed(QC): 6 Sit to Stand (QC): 4 Chair/Vuk-rh-Xxqdb Xfer(QC): 4 Car Transfer (QC): 4 Does the Patient Walk: Yes Walk 10 feet (QC): 4 Walk 10ft-Uneven Surface(QC): 88 Walk 50ft with 2 Turns (QC): 4 Walk 150 ft (QC): 88 Wheel 50 feet with 2 turns (QC: 6 1 Step (curb) (QC): 4 4 Steps (QC): 4 12 Steps (QC): 88 Picking up an Object (QC): 88 OT Under Trimmer Goals Under Trimmer Goals Time Frame: Feb 26, 2020 Eating (QC): 6 (met) Oral Hygiene (QC): 6 (met) Shower/Bathe Self (QC): 6 (not met) Upper Body Dressing (QC): 6 (not met) Lower Body Dressing (QC): 6 (not met) On/Off Footwear (QC): 6 (not met) Toileting Hygiene (QC): 6 (not met) Toilet/Commode Transfer (QC): 4 Additional Goals: 1-Demonstrate ADL Tasks, 2-Verbalize Understanding, 3- ImproveStrength/Tiff 1=Demonstrate adherence to instructed precautions during ADL tasks. 2=Patient will verbalize/demonstrate understanding of assistive devices/modifications for ADL. 3=Patient will improve strength/tolerance for activity to enable patient to perform ADL's. Speech Skilled Nursing Goals Skilled Nursing Goals Patient will improve cognitive communication necessary for safety and daily living tasks with minimal assist. ED LANDEROS OTR Feb 22, 2020 11:57
== END 2020-02-21 16:45 | DRG 560 ==
PROVIDERS: ADMIT Internal Medicine; ATTEND Internal Medicine
DX: S82.831D Other fracture of upper and lower end of right fibula, subsequent encounter for closed fracture with routine healing (principal); M62.82 Rhabdomyolysis; F03.91 Unspecified dementia, unspecified severity, with behavioral disturbance; F32.9 Major depressive disorder, single episode, unspecified; N49.2 Inflammatory disorders of scrotum; F10.20 Alcohol dependence, uncomplicated; F17.220 Nicotine dependence, chewing tobacco, uncomplicated; E78.5 Hyperlipidemia, unspecified; I10 Essential (primary) hypertension; C61 Malignant neoplasm of prostate; F41.9 Anxiety disorder, unspecified; E87.6 Hypokalemia; Z91.19 Patient's noncompliance with other medical treatment and regimen; W19.XXXD Unspecified fall, subsequent encounter
CPT/HCPCS: 36415; 80053; 82550; 85025; 94760